=== PATIENT | female | born 1965 | race Caucasian/White ===

== ENCOUNTER 2019-09-03 09:12 | Day surgery (SDC) | payer OTHER ==
[~2019-09-03 09:12] MED LIST: PROPOFOL INJ 200 MG/20 ML VIAL IV ONE
[2019-09-03 10:49] VITALS: BP 140/88
--- NOTE | 2019-09-03 12:06 | Operative Report ---
Operative Report DATE OF SURGERY: 09/03/19 Operative Report: The risks benefits and alternatives of the procedure explained to the patient in detail and informed consent is obtained.A GIF Olympus video scope was inserted into the patient's mouth and hypopharynx, the esophagus is identified intubated and insufflated, the scope was then advanced through the esophagus stomach and duodenum ,retroflexion maneuver is done ,the esophagus stomach and first and second portions of the duodenum examined PREOPERATIVE DIAGNOSIS: Dysphagia, abdominal pain POSTOPERATIVE DIAGNOSIS: Duodenitis. Gastritis status post biopsy. Esophagitis. Hiatal hernia OPERATION: EGD with biopsy SURGEON: YENNI CONDON ANESTHESIA: LMAC TISSUE REMOVED OR ALTERED: As noted above. COMPLICATIONS: None. ESTIMATED BLOOD LOSS: None. INTRAOPERATIVE FINDINGS: As noted above. PROCEDURE: Patient tolerated the procedure well. No immediate postprocedure complications are noted. Patient is discharged in good condition. Discharge date 09/03/2019. Discharge diet: Regular. Discharge activity: Regular. 2 to 3-week follow-up to discuss findings. Patient is instructed to call the office or proceed to the emergency room should there be any further problems or questions. Wait on the pathology.
== END 2019-09-03 10:45 | disposition home or self-care (01) ==
LOC: END 09:12
PROVIDERS: ATTEND Internal Medicine Gastroenterology
DX: K29.80 Duodenitis without bleeding (principal); K29.50 Unspecified chronic gastritis without bleeding; K44.9 Diaphragmatic hernia without obstruction or gangrene; K20.9 Esophagitis, unspecified; B96.81 Helicobacter pylori [H. pylori] as the cause of diseases classified elsewhere; I10 Essential (primary) hypertension; E78.5 Hyperlipidemia, unspecified; F17.210 Nicotine dependence, cigarettes, uncomplicated; Z79.899 Other long term (current) drug therapy; Z79.82 Long term (current) use of aspirin; Z79.84 Long term (current) use of oral hypoglycemic drugs; Z88.8 Allergy status to other drugs, medicaments and biological substances
CPT/HCPCS: 43239; 82962; 88342 ×2; 88305 ×2; 00731; J2704; 731

== ENCOUNTER 2019-09-18 12:02 | Emergency (ER) | payer OTHER ==
[2019-09-18] MEDS ORDERED: NORMAL SALINE 1000 ML 1,000 ML IV ONE (12:18)
[2019-09-18] MEDS ORDERED: MORPHINE SULFATE 10 MG/ML INJ IV ONE (12:19)
--- NOTE | 2019-09-18 12:22 | ER Document Report ---
ED Medical Screen (RME) - General Chief Complaint: Abdominal Pain Stated Complaint: ABDOMINAL PAIN Time Seen by Provider: 09/18/19 12:09 Notes: Patient is a 53-year-old female who presents the emergency department with a chief complaint of abdominal pain. Patient states that she has had her abdominal pain for the past 6 months, on and off, but this time her pain started 3 days ago. States that she was seen by Dr. Watson, the money room teller, and was diagnosed with "diverticulitis and pancreatitis" as per patient. According to the operative note from the endoscopy, the patient has duodenitis and a hiatal hernia. Exam: Tender mid upper abdomen. I have greeted and performed a rapid initial assessment of this patient. A comprehensive ED assessment and evaluation of the patient, analysis of test results and completion of medical decision making process will be conducted by an additional ED providers. TRAVEL OUTSIDE OF THE [place] IN LAST 30 DAYS: No - Related Data Allergies/Adverse Reactions: metformin Allergy (Verified 09/18/19 12:08) Past Medical History - Social History Frequency of alcohol use: None Drug Abuse: None - Past Medical History Cardiac Medical History: Denies: Hx Coronary Artery Disease, Hx Heart Attack, Hx Hypertension Pulmonary Medical History: Denies: Hx Asthma, Hx Bronchitis, Hx COPD, Hx Pneumonia Neurological Medical History: Denies: Hx Cerebrovascular Accident, Hx Seizures Endocrine Medical History: Denies: Hx Diabetes Mellitus Type 1, Hx Diabetes Mellitus Type 2 Musculoskeltal Medical History: Denies Hx Arthritis Skin Medical History: Reports Hx MRSA - upper arm Past Surgical History: Reports: Hx Section - x 1 - Immunizations Hx Diphtheria, Pertussis, Tetanus Vaccination: No Physical Exam - Vital signs Vitals: Temp Pulse Resp BP Pulse Ox 97.9 F 80 16 130/84 H 100 09/18/19 12:06 09/18/19 12:06 09/18/19 12:06 09/18/19 12:06 09/18/19 12:06 Course - Vital Signs Vital signs: Temp Pulse Resp BP Pulse Ox 97.9 F 80 16 130/84 H 100 09/18/19 12:06 09/18/19 12:06 09/18/19 12:06 09/18/19 12:06 09/18/19 12:06
[2019-09-18] MEDS ORDERED: ONDANSETRON HCL INJ/PF 4 MG/2 ML SDV IV ONE (12:33)
[2019-09-18 12:42] LABS: ABSOLUTE EOSINOPHILS # (AUTO) 0.2 10^3/uL (0.0-0.6); ABSOLUTE LYMPHOCYTES (AUTO) 1.7 10^3/uL (0.5-4.7); ABSOLUTE MONOCYTES (AUTO) 0.5 10^3/uL (0.1-1.4); ABSOLUTE NEUT (AUTO) 4.6 10^3/uL (1.7-8.2); BASOPHILS % (AUTO) 0.4 % (0-2); EOSINOPHILS % (AUTO) 2.2 % (0-6); HEMATOCRIT 43.2 % (36.0-47.0); HEMOGLOBIN 15.6 g/dL (12.0-15.5); LYMPHOCYTES % (AUTO) 23.9 % (13-45); MEAN CORPUSCULAR HEMOGLOBIN 37.7 pg (27.0-33.4); MEAN CORPUSCULAR HGB CONC 36.2 g/dL (32.0-36.0); MEAN CORPUSCULAR VOLUME 104 fl (80-97); MONOCYTES % (AUTO) 7.1 % (3-13); PLATELET COUNT 252 10^3/uL (150-450); RED BLOOD COUNT 4.15 10^6/uL (3.72-5.28); RED CELL DISTRIBUTION WIDTH 14.7 % (11.5-14.0); SEGMENTED NEUTROPHILS % (AUTO) 66.4 % (42-78); TOTAL CELLS COUNTED % (AUTO) 100 %; WHITE BLOOD COUNT 6.9 10^3/uL (4.0-10.5)
[2019-09-18 12:59] LABS: ALBUMIN 4.1 g/dL (3.5-5.0); ALKALINE PHOSPHATASE 182 U/L (38-126); ANION GAP 13 (5-19); ASPARTATE AMINO TRANSFERASE 180 U/L (14-36); BILIRUBIN,DIRECT 0.7 mg/dL (0.0-0.4); BILIRUBIN,TOTAL 1.4 mg/dL (0.2-1.3); BLOOD UREA NITROGEN 6 mg/dL (7-20); CALCIUM 9.3 mg/dL (8.4-10.2); CARBON DIOXIDE 27 mmol/L (22-30); CHLORIDE 98 mmol/L (98-107); GLUCOSE 183 mg/dL (75-110); POTASSIUM 3.3 mmol/L (3.6-5.0); TOTAL PROTEIN 7.8 g/dL (6.3-8.2)
[2019-09-18] MEDS ORDERED: PANTOPRAZOLE SODIUM 40 MG VIAL IV ONE (13:04)
[2019-09-18 13:18] LABS: APPEARANCE,URINE CLEAR; BILIRUBIN,URINE NEGATIVE (NEGATIVE); COLOR,URINE YELLOW; GLUCOSE, URINE NEGATIVE (NEGATIVE); KETONES,URINE TRACE mg/dL (NEGATIVE); LEUKOCYTE ESTERASE,URINE NEGATIVE (NEGATIVE); NITRITE,URINE NEGATIVE (NEGATIVE); PROTEIN,URINE NEGATIVE (NEGATIVE); URINE SPECIFIC GRAVITY 1.003
--- NOTE | 2019-09-18 13:33 | ER Document Report ---
Entered by SANDRA PEREZ SCRIBE 09/18/19 1307 Acting as scribe for:LUC MENJIVAR DO ED GI/ - General Chief Complaint: Abdominal Pain Stated Complaint: ABDOMINAL PAIN Time Seen by Provider: 09/18/19 12:09 Primary Care Provider: ELAN CURRIE MD [Primary Care Provider] - Follow up as needed YENNI WATSON MD [ACTIVE STAFF] - Follow up as needed Information source: Patient Notes: This 53 year old female patient presents to the emergency department today with complaints of abdominal pain. Patient had an endoscopy on 09/02 and she states she was told she was "eaten up with bacteria from her esophagus to her lower intestine" but no medications were prescribed. Patient states that she did not have a colonoscopy done at that time but she is scheduled for one in the future. Patient also mentions a 20 pound weight loss in the last x3 months. Patient states she has had intermittent nausea, vomiting, and foul smelling urine that she states "smells like popcorn". TRAVEL OUTSIDE OF THE [place] IN LAST 30 DAYS: No - Related Data Allergies/Adverse Reactions: metformin Allergy (Verified 09/18/19 12:08) Past Medical History - General Information source: Patient - Social History Smoking Status: Current Every Day Smoker Cigarette use (# per day): Yes Frequency of alcohol use: Occasional Drug Abuse: None Lives with: Family Family History: Reviewed & Not Pertinent Patient has suicidal ideation: No Patient has homicidal ideation: No Endocrine Medical History: Reports: Hx Diabetes Mellitus Type 2 Skin Medical History: Reports Hx MRSA - upper arm Past Surgical History: Reports: Hx Section - x 1, Hx Cholecystectomy - Immunizations Hx Diphtheria, Pertussis, Tetanus Vaccination: No Review of Systems - Review of Systems Constitutional: No symptoms reported EENT: No symptoms reported Cardiovascular: No symptoms reported Respiratory: No symptoms reported Gastrointestinal: See HPI, Abdominal pain, Nausea, Vomiting. denies: Diarrhea Genitourinary: See HPI, Other - foul smelling urine Female Genitourinary: No symptoms reported Musculoskeletal: No symptoms reported Skin: No symptoms reported Hematologic/Lymphatic: No symptoms reported Neurological/Psychological: No symptoms reported -: Yes All other systems reviewed and negative Physical Exam - Vital signs Vitals: Temp Pulse Resp BP Pulse Ox 97.9 F 80 16 130/84 H 100 09/18/19 12:06 09/18/19 12:06 09/18/19 12:06 09/18/19 12:06 09/18/19 12:06 - Notes Notes: Physical Exam: General: Alert, appears older than stated age. HEENT: Normocephalic. Atraumatic. PERRL. Extraocular movements intact. Oropharynx clear. Neck: Supple. Non-tender. Respiratory: No respiratory distress. Clear and equal breath sounds bilaterally. Cardiovascular: Regular rate and rhythm. Abdominal: Epigastric and left upper quadrant tenderness with palpation. Normal Bowel Sounds. Back: No gross abnormalities. Extremities: Moves all four extremities. Upper extremities: Normal inspection. Normal ROM. Lower extremities: Normal inspection. No edema. Normal ROM. Neurological: Normal cognition. AAOx4. Normal speech. Psychological: Normal affect. Normal Mood. Skin: Warm. Dry. Normal color. Course - Re-evaluation Re-evalutation: 09/18/19 15:39 MDM 53 year old female arrives with abd pain. Epigastric pain and a h/o pancreatitis with what appears to be some mild pancreatitis here today. No nausea or vomiting and tells me she feels better after IVF and protonix here. She sees Dr. Mcclellan locally and is due to follow up. She also tells me she drinks etoh at times and will refrain for at least the next 2 weeks. She will return here for any worsening. - Vital Signs Vital signs: Temp Pulse Resp BP Pulse Ox 97.9 F 80 16 130/84 H 100 09/18/19 12:06 09/18/19 12:06 09/18/19 12:06 09/18/19 12:06 09/18/19 12:06 - Laboratory Result Diagrams: 09/18/19 12:30 09/18/19 12:30 Laboratory results interpreted by me: 09/18/19 09/18/19 09/18/19 12:30 12:30 12:30 Hgb 15.6 H MCV 104 H MCH 37.7 H MCHC 36.2 H RDW 14.7 H Potassium 3.3 L BUN 6 L Creatinine 0.37 L Glucose 183 H Total Bilirubin 1.4 H Direct Bilirubin 0.7 H AST 180 H ALT 95 H Alkaline Phosphatase 182 H Lipase 762.3 H Urine Ketones TRACE H Urine Urobilinogen 4.0 H - Diagnostic Test Radiology reviewed: Reports reviewed Discharge - Discharge Clinical Impression: Acute pancreatitis Qualifiers: Pancreatitis type: unspecified pancreatitis type Acute pancreatitis complication: no infection or necrosis Qualified Code(s): K85.90 - Acute pancreatitis without necrosis or infection, unspecified Condition: Good Disposition: HOME-ASSISTED LIVING Instructions: Abdominal Pain ([facility]), Antispasmodics ([facility]), Clear Liquid Diet ([facility]) Additional Instructions: See Dr. Watson or Dr. Currie in follow up. No alcohol for 2 weeks at least. 2 days of a clear liquid diet and take the medicine as directed. Your potassium was just a bit low and should be rechecked in about 1-2 weeks by your primary doctor. Please return here for persistent vomiting, dizziness, chest pain or other problems or concerns. Prescriptions: Ondansetron [Zofran Odt 4 mg Tablet] 1 - 2 tab PO Q4HP PRN #10 tab.rapdis PRN Reason: Dicyclomine HCl [Bentyl 10 mg Capsule] 1 cap PO TID #30 cap Sucralfate [Carafate Susp 1 Gm/10 Ml Udcup] 1 gm PO TID 10 Days #1 bottle Potassium Chloride 10 meq PO DAILY #5 tablet.er Referrals: ELAN UCRRIE MD [Primary Care Provider] - Follow up as needed YENNI WATSON MD [ACTIVE STAFF] - Follow up as needed I personally performed the services described in the documentation, reviewed and edited the documentation which was dictated to the scribe in my presence, and it accurately records my words and actions.
--- NOTE | 2019-09-18 14:29 | RADIOLOGY REPORT (SQ) ---
EXAM DESCRIPTION: CT ABD/PELVIS WITH IV ONLY COMPLETED DATE/TIME: 09/18/2019 2:12 pm REASON FOR STUDY: pancreatitis COMPARISON: None. TECHNIQUE: CT scan of the abdomen and pelvis performed using helical scanning technique with dynamic intravenous contrast injection. No oral contrast. Images reviewed with lung, soft tissue, and bone windows. Reconstructed coronal and sagittal MPR images reviewed. Delayed images for evaluation of the urinary system also acquired. All images stored on PACS. All CT scanners at this facility use dose modulation, iterative reconstruction, and/or weight based d osing when appropriate to reduce radiation dose to as low as reasonably achievable (ALARA). [facility]: Dose Right [facility]: CareDose [facility]: Dose Right [facility]: Teradose 4D [facility]: [employer] CONTRAST TYPE AND DOSE: contrast/concentration: Isovue 350.00 mg/ml; Total Contrast Delivered: 69.0 ml; Total Saline Delivered: 48.6 ml RENAL FUNCTION: BUN 6 creatinine 0.4 RADIATION DOSE: CT Rad equipment meets quality standard of care and radiation dose reduction techniq ues were employed. CTDIvol: 6.1 - 8.3 mGy. DLP: 768 mGy-cm.. LIMITATIONS: None. FINDINGS: LOWER CHEST: No significant findings. No nodules or infiltrates. LIVER: Diffusely hypoattenuating. No mass. SPLEEN: Normal size. No focal lesions. PANCREAS: There appears to be mild pancreatic/ peripancreatic edema. No pancreatic mass is appreciat ed. GALLBLADDER: Surgically absent. ADRENAL GLANDS: No significant masses or asymmetry. RIGHT KIDNEY AND URETER: No solid masses. No significant calcifications. No hydronephrosis or hyd roureter. LEFT KIDNEY AND URETER: No solid masses. No significant calcifications. No hydronephrosis or hydr oureter. AORTA AND VESSELS: No aneurysm. No dissection. Renal arteries, SMA, celiac without stenosis. RETROPERITONEUM: No retroperitoneal adenopathy, hemorrhage or masses. BOWEL AND PERITONEAL CAVITY: Sigmoid diverticulosis with no associated acute inflammation. APPENDIX: Not identified. PELVIS: There is a 42.5 mm cyst in the pelvis. This does not appear to be associated with the left o vary which can be seen on image 72. ABDOMINAL WALL: No masses. No hernias. BONES: No significant or acute findings. OTHER: No other significant finding. IMPRESSION: 1. Significant hepatic steatosis. 2. There appears to be mild pancreatitis. Correlate clinically. 3. Diverticulosis coli. 4. There is a 42.5 mm cyst in the pelvis that appears to be separate from the ovary. It is possible this represents a small bowel diverticulum. TECHNICAL DOCUMENTATION: JOB ID: [id number] Quality ID # [id number]: Final reports with documentation of one or more dose reduction techniques (e.g., Au tomated exposure control, adjustment of the mA and/or kV according to patient size, use of iterative reconstruction technique) 2010 [employer]- All Rights Reserved Reading location - IP/workstation name: [email or web address]
[2019-09-18 16:10] VITALS: BP 131/77
== END 2019-09-18 16:10 | disposition home health service (06) ==
LOC: ER 12:02
DX: K85.90 Acute pancreatitis without necrosis or infection, unspecified (principal); R10.9 Unspecified abdominal pain; R11.2 Nausea with vomiting, unspecified; R39.198 Other difficulties with micturition; F17.210 Nicotine dependence, cigarettes, uncomplicated; E11.9 Type 2 diabetes mellitus without complications
CPT/HCPCS: 99284; 96361; 96374; 96375; 36415; 83690; 85025; 81025; 80053; 81001; 74177; J2270; C9113; J2405; J7030

== ENCOUNTER 2019-09-30 18:24 | Emergency (ER) | payer OTHER ==
[2019-09-30] MEDS ORDERED: ONDANSETRON HCL INJ/PF 4 MG/2 ML SDV IV ONE (18:39)
[2019-09-30] MEDS ORDERED: NORMAL SALINE 1000 ML 1,000 ML IV ONE (18:39)
--- NOTE | 2019-09-30 18:40 | ER Document Report ---
ED Medical Screen (RME) - General Chief Complaint: General Weakness Stated Complaint: CONFUSION, WEAKNESS Time Seen by Provider: 09/30/19 18:34 Primary Care Provider: ELAN CURRIE MD [Primary Care Provider] - Follow up as needed Notes: Patient is a 53-year-old female who presents to the emergency department with a chief complaint of abdominal pain. Patient states that she feels weak and confused, but is still oriented. Patient was diagnosed with pancreatitis on September 17, but continues to have symptoms. Exam: Tender mid to left upper abdomen. I have greeted and performed a rapid initial assessment of this patient. A comprehensive ED assessment and evaluation of the patient, analysis of test results and completion of medical decision making process will be conducted by an additional ED providers. TRAVEL OUTSIDE OF THE [place] IN LAST 30 DAYS: No - Related Data Allergies/Adverse Reactions: metformin Allergy (Verified 09/18/19 12:08) Home Medications: zofran, carafate, potassium, bentyl Past Medical History - Past Medical History Cardiac Medical History: Reports: Hx Hypertension Denies: Hx Coronary Artery Disease, Hx Heart Attack Pulmonary Medical History: Denies: Hx Asthma, Hx Bronchitis, Hx COPD, Hx Pneumonia Neurological Medical History: Denies: Hx Cerebrovascular Accident, Hx Seizures Endocrine Medical History: Reports: Hx Diabetes Mellitus Type 2. Denies: Hx Diabetes Mellitus Type 1 Musculoskeltal Medical History: Denies Hx Arthritis Skin Medical History: Reports Hx MRSA - upper arm Past Surgical History: Reports: Hx Section - x 1, Hx Cholecystectomy - Immunizations Hx Diphtheria, Pertussis, Tetanus Vaccination: No Physical Exam - Vital signs Vitals: Temp Pulse Resp BP Pulse Ox 98.1 F 105 H 15 106/72 99 09/30/19 18:32 09/30/19 18:32 09/30/19 18:32 09/30/19 18:32 09/30/19 18:32 Course - Vital Signs Vital signs: Temp Pulse Resp BP Pulse Ox 98.1 F 105 H 15 106/72 99 09/30/19 18:32 09/30/19 18:32 09/30/19 18:32 09/30/19 18:32 09/30/19 18:32 Doctor's Discharge - Discharge Referrals: ELAN CURRIE MD [Primary Care Provider] - Follow up as needed
[2019-09-30 19:18] LABS: ABSOLUTE EOSINOPHILS # (AUTO) 0.1 10^3/uL (0.0-0.6); ABSOLUTE LYMPHOCYTES (AUTO) 0.9 10^3/uL (0.5-4.7); ABSOLUTE MONOCYTES (AUTO) 0.5 10^3/uL (0.1-1.4); ABSOLUTE NEUT (AUTO) 4.6 10^3/uL (1.7-8.2); BASOPHILS % (AUTO) 0.4 % (0-2); EOSINOPHILS % (AUTO) 1.3 % (0-6); HEMOGLOBIN 13.1 g/dL (12.0-15.5); LYMPHOCYTES % (AUTO) 15.3 % (13-45); MEAN CORPUSCULAR HEMOGLOBIN 37.3 pg (27.0-33.4); MEAN CORPUSCULAR HGB CONC 36.4 g/dL (32.0-36.0); MEAN CORPUSCULAR VOLUME 102 fl (80-97); MONOCYTES % (AUTO) 8.6 % (3-13); PLATELET COUNT 109 10^3/uL (150-450); RED BLOOD COUNT 3.52 10^6/uL (3.72-5.28); RED CELL DISTRIBUTION WIDTH 14.6 % (11.5-14.0); SEGMENTED NEUTROPHILS % (AUTO) 74.4 % (42-78); TOTAL CELLS COUNTED % (AUTO) 100 %; WHITE BLOOD COUNT 6.1 10^3/uL (4.0-10.5)
[2019-09-30 19:34] LABS: ALBUMIN 3.3 g/dL (3.5-5.0); ALKALINE PHOSPHATASE 349 U/L (38-126); ASPARTATE AMINO TRANSFERASE 134 U/L (14-36); BILIRUBIN,DIRECT 8.1 mg/dL (0.0-0.4); BLOOD UREA NITROGEN 26 mg/dL (7-20); CALCIUM 9.1 mg/dL (8.4-10.2); GLUCOSE 309 mg/dL (75-110); TOTAL PROTEIN 6.4 g/dL (6.3-8.2)
[2019-09-30 19:38] LABS: CARBON DIOXIDE 28 mmol/L (22-30); CHLORIDE 80 mmol/L (98-107)
[2019-09-30 19:42] LABS: ANION GAP 19 (5-19)
[2019-09-30 19:47] LABS: POTASSIUM 2.7 mmol/L (3.6-5.0)
[2019-09-30] MEDS ORDERED: RINGERS SOLUTION,LACTATED 1,000 ML IV ONE (19:57)
[2019-09-30] MEDS ORDERED: METOCLOPRAMIDE HCL INJ/PF 10 MG/2 ML SDV IV ONE (19:58)
--- NOTE | 2019-09-30 20:02 | ER Document Report ---
ED General - General Chief Complaint: General Weakness Stated Complaint: CONFUSION, WEAKNESS Time Seen by Provider: 09/30/19 18:34 Primary Care Provider: ELAN LARSON MD [Primary Care Provider] - Follow up as needed Notes: 53-year-old female presents emergency department complaining that she was diagnosed with pancreatitis by Dr. Condon on a scope last Tuesday and that she was diagnosed with diverticulitis by Dr. Larson a month ago and was placed on antibiotics. Patient is concerned because she has had decreased oral intake for the past 2 months. States that this morning she was only able to eat 1 piece of peanut butter toast and 7 grapes and then she threw up again. Denies any hematemesis. Denies any diarrhea. Denies any increase in her pain. Patient states she just feels incredibly weak and thinks she has lost a lot of weight. States she thinks she needs to be admitted for several days until she can get her energy back. TRAVEL OUTSIDE OF THE [place] IN LAST 30 DAYS: No - Related Data Allergies/Adverse Reactions: metformin Allergy (Verified 09/18/19 12:08) Home Medications: zofran, carafate, potassium, bentyl Past Medical History - General Information source: Patient, [facility] Records - Social History Smoking Status: Current Some Day Smoker Frequency of alcohol use: None Drug Abuse: None Family History: Reviewed & Not Pertinent Patient has suicidal ideation: No Patient has homicidal ideation: No - Past Medical History Cardiac Medical History: Reports: Hx Hypertension Denies: Hx Coronary Artery Disease, Hx Heart Attack Pulmonary Medical History: Denies: Hx Asthma, Hx Bronchitis, Hx COPD, Hx Pneumonia Neurological Medical History: Denies: Hx Cerebrovascular Accident, Hx Seizures Endocrine Medical History: Reports: Hx Diabetes Mellitus Type 2. Denies: Hx Diabetes Mellitus Type 1 Musculoskeletal Medical History: Denies Hx Arthritis Skin Medical History: Reports Hx MRSA - upper arm Past Surgical History: Reports: Hx Section - x 1, Hx Cholecystectomy - Immunizations Hx Diphtheria, Pertussis, Tetanus Vaccination: No Review of Systems - Review of Systems Constitutional: See HPI, Malaise, Weakness. denies: Chills, Fever EENT: No symptoms reported Gastrointestinal: See HPI, Abdominal pain, Nausea, Vomiting. denies: Diarrhea -: Yes All other systems reviewed and negative Physical Exam - Vital signs Vitals: Temp Pulse Resp BP Pulse Ox 98.1 F 105 H 15 106/72 99 09/30/19 18:32 09/30/19 18:32 09/30/19 18:32 09/30/19 18:32 09/30/19 18:32 Interpretation: Tachycardic - Notes Notes: GENERAL: Alert, interacts well. HEAD: Normocephalic, atraumatic EYES: Pupils equal, round and reactive to light, extraocular movements intact. Scleral icterus ENT: Oral mucosa moist, tongue midline. NECK: Full range of motion, supple, trachea midline. LUNGS: Clear to auscultation bilaterally, no wheezes, rales or rhonchi, no respiratory distress. HEART: Mildly tachycardic rate, regular rhythm, no murmurs, gallops, rubs. ABDOMEN: Soft, nontender, nondistended, bowel sounds present in all 4 quadrants. EXTREMITIES: Moves all 4 extremities spontaneously, no edema, radial and dorsalis pedis pulses 2/4 bilaterally. No cyanosis. NEUROLOGICAL: Alert and oriented x3, normal speech. PSYCH: Irritable. SKIN: Warm, Dry, normal turgor, no rashes or lesions noted. Course - Re-evaluation Re-evalutation: 09/30/19 23:20 CBC shows thrombocytopenia at 109, CMP shows hyponatremia with a sodium of 127.2, this is dropped approximately 10 points in the past week and a half, potassium is quite low at 2.7, again significantly lower than the 24th, magnesium is actually normal, total and direct bilirubin have both markedly increased from the 24th total bilirubin is now 10 and direct bilirubin is 8.1, AST, ALT and alk phos all remain elevated, AST has improved and ALT and alkaline phosphatase have worsened. Lipase is actually improved at 570.8. Urinalysis d oes show ketones and small blood. No true signs of infection. CT scan is pending. 09/30/19 23:23 Patient has lost 1.5 kg since her last visit on 09/18/2019. 09/30/19 23:45 Abdomen/Pelvis CT 09/30/19 21:20 IMPRESSION: 1. Diffuse fatty infiltration of the liver. Hepatomegaly. 2. Possible thickening of the gastric outlet suggesting gastritis. The appearance is stable. 3. Subtle inflammation involving the pancreas consistent with resolving pancreatitis. There may be a 9 mm cyst now seen adjacent to the tail of the pancreas. This is new. 4. Peritoneal cyst in the mid abdomen slightly less pronounced on today's exam. 09/30/19 23:46 Patient is now asking for ice chips, feels like she can eat or drink something. Discussed with patient further her concerns and she states that she would like to be admitted overnight otherwise her insurance company will not cover her visit to the emergency department today. Patient and I had an extensive discussion about the reasons why somebody would need to be admitted to the hospital and that currently when she is able to eat and drink despite having nausea and vomiting when she does eat and drink that being admitted to the hospital could possibly have more risk for her than benefits particularly during a time of novel coronavirus outbreak. Patient has been instructed to follow-up with Dr. Condon as an outpatient. Patient is instructed to ask Dr. Condon to follow-up regarding her elevated bilirubin, her continuing pain and further adjustment of her antacids. 09/30/19 23:51 Pancreatic cyst unlikely to represent abscess as she has no fever and no leukocytosis. - Vital Signs Vital signs: Temp Pulse Resp BP Pulse Ox 98.1 F 105 H 22 H 119/76 98 09/30/19 18:32 09/30/19 18:32 09/30/19 20:31 09/30/19 20:31 09/30/19 20:31 - Laboratory Result Diagrams: 09/30/19 19:07 09/30/19 19:07 Laboratory results interpreted by me: 09/30/19 09/30/19 09/30/19 19:07 19:07 21:45 RBC 3.52 L MCV 102 H MCH 37.3 H MCHC 36.4 H RDW 14.6 H Plt Count 109 L Sodium 127.2 L Potassium 2.7 L* Chloride 80 L BUN 26 H Creatinine 0.50 L Glucose 309 H Total Bilirubin 10.0 H Direct Bilirubin 8.1 H AST 134 H ALT 197 H Alkaline Phosphatase 349 H Albumin 3.3 L Lipase 570.8 H Urine Glucose (UA) >=500 H Urine Ketones 80 H Urine Blood SMALL H Urine Urobilinogen 2.0 H - EKG Interpretation by Me Additional EKG results interpreted by me: 09/30/19 23:20 EKG shows sinus rhythm at a rate of 90, borderline prolonged QT interval with a QT corrected of 500, normal axis, no ST segment elevations or depressions, no T wave inversions, no QRS widening, rapid R wave progression per my interpretation. Discharge - Discharge Clinical Impression: Esophagitis, Gastritis and duodenitis, Pancreatic cyst, Hypokalemia due to excessive gastrointestinal loss of potassium Nausea and vomiting Qualifiers: Vomiting type: unspecified Vomiting Intractability: non-intractable Qualified Code(s): R11.2 - Nausea with vomiting, unspecified Condition: Stable Disposition: HOME, SELF-CARE Additional Instructions: Your CAT scan showed signs of improvement in your pancreatitis but did show continuing inflammation in your stomach. Please continue to eat low-fat foods. You told me today you had peanut butter toast. Peanut butter is actually very high fat, I would recommend you avoid nuts and nut butters as they will make your stomach feel worse. You should be trying to eat clear liquids, simple carbohydrates and things with very little fat. This also means avoiding dairy. Please continue to take the medications that apparently prescribed to you by Dr. Davidson and Dr. Larson they will treat your esophagitis, gastritis and duodenitis (the inflammation from your throat to your intestines). I want you to follow-up with Dr. oCndon as an outpatient. Please discuss with him that you had been diagnosed with pancreatitis and it is improving but you are still having vomiting. Please also discussed with him that your bilirubin has elevated from your last visit. Please return for fever or pain that is uncontrolled by the antinausea medications I have prescribed or for any new or concerning symptoms. I have prescribed Zofran and Phenergan for your nausea and vomiting. The Zofran will dissolve under your tongue and stop the vomiting, you may use the Phenergan to decrease your nausea as well if the Zofran does not completely relieve your nausea. You may also use Imodium as directed [id number] to help with your diarrhea. Your potassium was low today, 2.7. We have been giving you potassium to help bring this back up. You will need to have this rechecked in approximately 1 week to make sure it is continuing to come back up. Prescriptions: Potassium Chloride [Klor-Con 10 Meq Tablet ER] 10 meq PO Q12 #20 tablet.sa Promethazine HCl [Phenergan 25 mg Tablet] 1 - 2 tab PO Q6H PRN #20 tablet PRN Reason: Ondansetron [Zofran Odt 4 mg Tablet] 1 - 2 tab PO Q4H PRN #20 tab.rapdis PRN Reason: For Nausea/Vomiting Referrals: ELAN LARSON MD [Primary Care Provider] - Follow up as needed YENNI CONDON MD [ACTIVE STAFF] - Follow up as needed
[2019-09-30] MEDS: POTASSI CL 20 MEQ/50 ML RIDER 20 MEQ/50 ML RTUPB IV SCH ×2 (20:20→21:49)
[2019-09-30 22:16] LABS: APPEARANCE,URINE CLEAR; BILIRUBIN,URINE NEGATIVE (NEGATIVE); COLOR,URINE AMBER; GLUCOSE, URINE >=500 mg/dL (NEGATIVE); KETONES,URINE 80 mg/dL (NEGATIVE); LEUKOCYTE ESTERASE,URINE NEGATIVE (NEGATIVE); NITRITE,URINE NEGATIVE (NEGATIVE); PROTEIN,URINE NEGATIVE (NEGATIVE); URINE SPECIFIC GRAVITY 1.014
--- NOTE | 2019-09-30 23:36 | RADIOLOGY REPORT (SQ) ---
EXAM DESCRIPTION: Contrast-enhanced CT scan of the abdomen and pelvis CLINICAL HISTORY: 53 years Female; pancreatitis, elevated LFTs TECHNIQUE: CT of the abdomen and pelvis with intravenous contrast. Delayed imaging of the abdomen and pelvis was also performed. All CT scans at this facility use dose modulation, iterative reconstruction, and/or weight based dosing when appropriate to reduce radiation dose to as low as reasonably achievable. This exam was performed according to our department optimization program which includes automated exposure control, adjustment of the mA and/or kv according to patient size and/or use of iterative reconstruction technique. COMPARISON: CT scan of the abdomen and pelvis September 18, 2019 FINDINGS: Lower chest: Minimal dependent density is noted in the lung bases. Heart size is normal. No pleural effusion. No pneumothorax. Abdomen: Liver and biliary tree: Diffuse fatty infiltration of the liver is again identified. The gallbladder surgically absent. The liver is enlarged and measures 22.3 cm in length. No definitive biliary dilatation. Portal vein and hepatic veins are patent. Pancreas: The previously noted changes of pancreatitis have improved and there is less noticeable inflammation adjacent to the head and body of the pancreas. A 9 mm area of decreased density is present along the deep surface of the tail of the pancreas which may represent a very small focal fluid collection. This is new when compared the previous exam. No evidence of devitalized pancreas. There is a duodenal diverticulum which projects into the head of the pancreas. This is unchanged. Spleen:Within normal limits Kidneys: Kidneys are normal in size, shape and position. No stones. No mass or hydronephrosis. Symmetric renal enhancement. On delayed images there is normal pyelograms bilaterally. Adrenal glands:Within normal limits Vascular structures: Vascular calcifications are present in the aorta and iliac vessels. The mesenteric vessels are patent. Retroperitoneum: Family history, adhere Abdominal wall: normal GI: There may be thickening of the gastric outlet. No bowel obstruction. Scattered diverticula are seen in the colon. No evidence of acute diverticulitis. Appendix: The appendix appears normal. General: No free air. No free fluid Pelvis: Lymph nodes: No mass or lymphadenopathy Bladder: Unremarkable. Pelvis: The appearance of the uterus and ovaries are unchanged. There is been previous tubal ligation. A cyst is present in the mid pelvis in between bowel loops and is not associated with the ovaries. It measures 3.7 cm and is smaller on today's exam. Bones: No acute bone findings. IMPRESSION: 1. Diffuse fatty infiltration of the liver. Hepatomegaly. 2. Possible thickening of the gastric outlet suggesting gastritis. The appearance is stable. 3. Subtle inflammation involving the pancreas consistent with resolving pancreatitis. There may be a 9 mm cyst now seen adjacent to the tail of the pancreas. This is new. 4. Peritoneal cyst in the mid abdomen slightly less pronounced on today's exam.
--- NOTE | 2019-10-01 00:13 | EKG REPORT ---
SEVERITY:- BORDERLINE ECG - SINUS RHYTHM BORDERLINE PROLONGED QT INTERVAL : Confirmed by: Jarad Moncada 01-Oct-2019 00:12:55
[2019-10-01] MEDS: POTASSI CL 20 MEQ/50 ML RIDER 20 MEQ/50 ML RTUPB IV SCH ×2 (01:15→03:44)
[2019-10-01 05:57] VITALS: BP 127/89
== END 2019-10-01 06:20 | disposition home or self-care (01) ==
LOC: ER 18:24
DX: K20.9 Esophagitis, unspecified (principal); K29.70 Gastritis, unspecified, without bleeding; K86.2 Cyst of pancreas; E87.6 Hypokalemia; R11.2 Nausea with vomiting, unspecified; R53.1 Weakness; R10.9 Unspecified abdominal pain; I10 Essential (primary) hypertension; Z90.49 Acquired absence of other specified parts of digestive tract; Z86.14 Personal history of Methicillin resistant Staphylococcus aureus infection
CPT/HCPCS: 93005; 99285; 96361; 96375; 96365; 96366; 36415; 83690; 83735; 85025; 80053; 81001; 74177; 93010; J2765; J2405; J3480 ×2; J7030; J7120

== ENCOUNTER 2019-10-22 15:14 | Emergency (ER) | payer OTHER ==
--- NOTE | 2019-10-22 16:47 | RADIOLOGY REPORT (SQ) ---
EXAM DESCRIPTION: CHEST SINGLE VIEW IMAGES COMPLETED DATE/TIME: 10/22/2019 4:29 pm REASON FOR STUDY: cough COMPARISON: None. EXAM PARAMETERS: NUMBER OF VIEWS: One view. TECHNIQUE: An AP view of the chest was obtained. RADIATION DOSE: NA LIMITATIONS: None. FINDINGS: LUNGS AND PLEURA: No consolidation, pleural effusion or pneumothorax. MEDIASTINUM AND HILAR STRUCTURES: No mediastinal or hilar contour abnormality. HEART AND VASCULAR STRUCTURES: The cardiac silhouette and pulmonary vasculature are within normal bonilla its. BONES: No acute findings. HARDWARE: None in the chest. OTHER: No other finding. IMPRESSION: No acute cardiopulmonary process. TECHNICAL DOCUMENTATION: JOB ID: [id number] 2010 [employer]- All Rights Reserved Reading location - IP/workstation name: [email or web address]
--- NOTE | 2019-10-22 18:03 | ER Document Report ---
ED General - General Chief Complaint: Medical Clearance Stated Complaint: REFFERED Time Seen by Provider: 10/22/19 15:30 Primary Care Provider: ELAN CURRIE MD [Primary Care Provider] - Follow up as needed Mode of Arrival: Ambulatory Information source: Patient TRAVEL OUTSIDE OF THE [place] IN LAST 30 DAYS: No - HPI Notes: Patient was sent from her primary care doctor's office today for a COVID virus test as well as a chest x-ray. She states blood work was done at the office. She states she was diagnosed with a fever and a urinary tract infection. She states that she has had no known exposure to COVID virus. She also states that she has had no respiratory symptoms. She states her doctor told her he just wanted to be careful. She has had fever chills and malaise for several days. They have been constant. They are worse with exertion and better with rest. They do radiate throughout her body. - Related Data Allergies/Adverse Reactions: metformin Allergy (Verified 09/18/19 12:08) Home Medications: "BP infection and insulin" Past Medical History - General Information source: Patient - Social History Smoking Status: Current Every Day Smoker Frequency of alcohol use: None Drug Abuse: None Family History: Reviewed & Not Pertinent Patient has suicidal ideation: No Patient has homicidal ideation: No - Past Medical History Cardiac Medical History: Reports: Hx Hypertension Denies: Hx Coronary Artery Disease, Hx Heart Attack Pulmonary Medical History: Denies: Hx Asthma, Hx Bronchitis, Hx COPD, Hx Pneumonia Neurological Medical History: Denies: Hx Cerebrovascular Accident, Hx Seizures Endocrine Medical History: Reports: Hx Diabetes Mellitus Type 2. Denies: Hx Diabetes Mellitus Type 1 Musculoskeletal Medical History: Denies Hx Arthritis Skin Medical History: Reports Hx MRSA - upper arm Past Surgical History: Reports: Hx Section - x 1, Hx Cholecystectomy - Immunizations Hx Diphtheria, Pertussis, Tetanus Vaccination: No Review of Systems - Review of Systems Constitutional: Chills, Fever Cardiovascular: denies: Chest pain, Palpitations Respiratory: denies: Cough, Short of breath -: Yes All other systems reviewed and negative Physical Exam - Vital signs Vitals: Temp Pulse Resp BP Pulse Ox 101 F H 133 H 16 141/82 H 97 10/22/19 15:16 10/22/19 15:16 10/22/19 15:16 10/22/19 15:16 10/22/19 15:16 Interpretation: Tachycardic - pt states "my HR is always fast" - General General appearance: Appears well, Alert - HEENT Head: Normocephalic, Atraumatic Eyes: Normal Pupils: PERRL - Respiratory Respiratory status: No respiratory distress Chest status: Nontender Breath sounds: Normal Chest palpation: Normal - Cardiovascular Rhythm: Regular Heart sounds: Normal auscultation Murmur: No - Abdominal Inspection: Normal Distension: No distension Bowel sounds: Normal Tenderness: Nontender Organomegaly: No organomegaly - Back Back: Normal, Nontender - Extremities General upper extremity: Normal inspection, Nontender, Normal color, Normal ROM, Normal temperature General lower extremity: Normal inspection, Nontender, Normal color, Normal ROM, Normal temperature, Normal weight bearing. No: Klever's sign - Neurological Neuro grossly intact: Yes Cognition: Normal Orientation: AAOx4 Pep Coma Scale Eye Opening: Spontaneous [place] Coma Scale Verbal: Oriented [place] Coma Scale Motor: Obeys Commands Pep Coma Scale Total: 15 Speech: Normal Motor strength normal: LUE, RUE, LLE, RLE Sensory: Normal - Psychological Associated symptoms: Normal affect, Normal mood - Skin Skin Temperature: Warm Skin Moisture: Dry Skin Color: Normal Course - Re-evaluation Re-evalutation: 10/22/19 18:01 Patient sent by primary care provider for COVID test. Chest x-ray is unrema rkable. She has no known COVID risk factors. She does appear stable. It is concerning on exam the patient is tachycardic. The tachycardia slightly improved after treating the fever. She states she is usually tachycardic. I reviewed her previous heart rates here and they have been in the 80s to 90s. However since her doctor gianna blood work today I do not think would benefit her to draw more blood work here. She does not appear toxic she is sitting up calm with unlabored respirations. She is talking in normal sentences. She has no significant risk factors for pulmonary embolism. At this time it seems most prudent to have her discharged home and follow-up with her primary care doctor. - Vital Signs Vital signs: Temp Pulse Resp BP Pulse Ox 100.5 F H 126 H 18 114/70 97 10/22/19 17:10 10/22/19 17:10 10/22/19 17:10 10/22/19 17:10 10/22/19 17:10 - Diagnostic Test Radiology reviewed: Image reviewed, Reports reviewed Discharge - Discharge Clinical Impression: UTI (urinary tract infection) Qualifiers: Urinary tract infection type: site unspecified Hematuria presence: without hematuria Qualified Code(s): N39.0 - Urinary tract infection, site not specified Fever Qualifiers: Fever type: due to other condition Qualified Code(s): R50.81 - Fever presenting with conditions classified elsewhere Condition: Stable Disposition: HOME, SELF-CARE Additional Instructions: Please follow-up with your primary care physician as instructed Forms: Return to Work Referrals: ELAN CURRIE MD [Primary Care Provider] - Follow up in 3-5 days
[2019-10-22 18:20] VITALS: BP 110/65
== END 2019-10-22 18:20 | disposition home or self-care (01) ==
LOC: ER 15:14
DX: N39.0 Urinary tract infection, site not specified (principal); R50.81 Fever presenting with conditions classified elsewhere; Z11.59 Encounter for screening for other viral diseases; R00.0 Tachycardia, unspecified; I10 Essential (primary) hypertension; E11.9 Type 2 diabetes mellitus without complications; Z79.899 Other long term (current) drug therapy; Z79.4 Long term (current) use of insulin; Z20.828 Contact with and (suspected) exposure to other viral communicable diseases
CPT/HCPCS: 71045; 87635; 99283

== ENCOUNTER 2019-10-23 15:36 | Inpatient (IN) | payer SELFPAY ==
--- NOTE | 2019-10-23 15:52 | ER Document Report ---
ED Medical Screen (RME) - General Chief Complaint: Abnormal Lab Results Stated Complaint: ABNORMAL LABS Time Seen by Provider: 10/23/19 15:40 Primary Care Provider: ELAN CURRIE MD [Primary Care Provider] - Follow up as needed Mode of Arrival: Ambulatory Information source: Patient Notes: 53-year-old diabetic patient presents today after she received a call from her primary care provider Dr. Currie telling her to come to the emergency department because she was severely dehydrated. Patient reports glucose today was 197. She reports thats better than it was. She reports she feels better than she did yesterday. Denies fever vomiting diarrhea. Reports she has been taking her water pills so voiding a lot. I have greeted and performed a rapid initial assessment of this patient. A comprehensive ED assessment and evaluation of the patient, analysis of test results and completion of the medical decision making process will be conducted by additional ED providers. TRAVEL OUTSIDE OF THE [place] IN LAST 30 DAYS: No - Related Data Allergies/Adverse Reactions: metformin Allergy (Verified 09/18/19 12:08) Past Medical History - Social History Frequency of alcohol use: None Drug Abuse: None - Past Medical History Cardiac Medical History: Reports: Hx Hypertension Denies: Hx Coronary Artery Disease, Hx Heart Attack Pulmonary Medical History: Denies: Hx Asthma, Hx Bronchitis, Hx COPD, Hx Pneumonia Neurological Medical History: Denies: Hx Cerebrovascular Accident, Hx Seizures Endocrine Medical History: Reports: Hx Diabetes Mellitus Type 2. Denies: Hx Diabetes Mellitus Type 1 Musculoskeltal Medical History: Denies Hx Arthritis Skin Medical History: Reports Hx MRSA - upper arm Past Surgical History: Reports: Hx Section - x 1, Hx Cholecystectomy - Immunizations Hx Diphtheria, Pertussis, Tetanus Vaccination: No Physical Exam - Vital signs Vitals: Temp 99.9 F 10/23/19 15:45 Course - Vital Signs Vital signs: Temp Pulse Resp BP Pulse Ox 99.9 F 10/23/19 15:45 Doctor's Discharge - Discharge Referrals: ELAN CURRIE MD [Primary Care Provider] - Follow up as needed
[2019-10-23] MEDS ORDERED: NORMAL SALINE 1000 ML 1,000 ML IV ONE ×2 (16:01)
[2019-10-23 16:39] LABS: ABSOLUTE BASOPHILS # (AUTO) 0.1 10^3/uL (0.0-0.2); ABSOLUTE EOSINOPHILS # (AUTO) 0.1 10^3/uL (0.0-0.6); ABSOLUTE LYMPHOCYTES (AUTO) 0.8 10^3/uL (0.5-4.7); ABSOLUTE MONOCYTES (AUTO) 0.5 10^3/uL (0.1-1.4); ABSOLUTE NEUT (AUTO) 11.8 10^3/uL (1.7-8.2); BASOPHILS % (AUTO) 0.9 % (0-2); EOSINOPHILS % (AUTO) 0.5 % (0-6); HEMATOCRIT 30.8 % (36.0-47.0); HEMOGLOBIN 10.5 g/dL (12.0-15.5); LYMPHOCYTES % (AUTO) 5.8 % (13-45); MEAN CORPUSCULAR HGB CONC 33.9 g/dL (32.0-36.0); MEAN CORPUSCULAR VOLUME 103 fl (80-97); PLATELET COUNT 234 10^3/uL (150-450); RED BLOOD COUNT 2.99 10^6/uL (3.72-5.28); RED CELL DISTRIBUTION WIDTH 15.6 % (11.5-14.0); SEGMENTED NEUTROPHILS % (AUTO) 88.8 % (42-78); TOTAL CELLS COUNTED % (AUTO) 100 %; WHITE BLOOD COUNT 13.3 10^3/uL (4.0-10.5)
[2019-10-23 16:40] LABS: APPEARANCE,URINE SLIGHTLY-CLOUDY; BILIRUBIN,URINE NEGATIVE (NEGATIVE); COLOR,URINE AMBER; GLUCOSE, URINE 50 mg/dL (NEGATIVE); KETONES,URINE 20 mg/dL (NEGATIVE); LEUKOCYTE ESTERASE,URINE TRACE (NEGATIVE); NITRITE,URINE NEGATIVE (NEGATIVE); PROTEIN,URINE 30 mg/dL (NEGATIVE); URINE SPECIFIC GRAVITY 1.014
[2019-10-23 16:55] LABS: ALBUMIN 3.5 g/dL (3.5-5.0); ALKALINE PHOSPHATASE 182 U/L (38-126); ANION GAP 10 (5-19); ASPARTATE AMINO TRANSFERASE 29 U/L (14-36); BILIRUBIN,DIRECT 1.3 mg/dL (0.0-0.4); BILIRUBIN,TOTAL 2.1 mg/dL (0.2-1.3); BLOOD UREA NITROGEN 6 mg/dL (7-20); CALCIUM 8.8 mg/dL (8.4-10.2); CARBON DIOXIDE 27 mmol/L (22-30); CHLORIDE 95 mmol/L (98-107); GLUCOSE 289 mg/dL (75-110); POTASSIUM 3.6 mmol/L (3.6-5.0); TOTAL PROTEIN 7.2 g/dL (6.3-8.2)
--- NOTE | 2019-10-23 16:59 | RADIOLOGY REPORT (SQ) ---
EXAM DESCRIPTION: CTA CHEST IMAGES COMPLETED DATE/TIME: 10/23/2019 4:33 pm REASON FOR STUDY: weak/tachycardia/fever COMPARISON: CT ABDOMEN PELVIS 09/30/2019, 09/18/2019 TECHNIQUE: CT scan of the chest performed using helical scanning technique with dynamic intravenous contrast injection. Images reviewed with lung, soft tissue and bone windows. Reconstructed coronal and sagittal MPR images reviewed. Additional 3 dimensional post-processing performed to develop Maximal Intensity Projection images (GA P). All images stored on PACS. All CT scanners at this facility use dose modulation, iterative reconstruction, and/or weight based d osing when appropriate to reduce radiation dose to as low as reasonably achievable (ALARA). [facility]: Dose Right [facility]: CareDose [facility]: Dose Right [facility]: Teradose 4D [facility]: Trendy Mondays CONTRAST TYPE AND DOSE: contrast/concentration: Isovue 350.00 mg/ml; Total Contrast Delivered: 50.0 ml; Total Saline Delivered: 76.0 ml Contrast bolus adequate for pulmonary arteries and aorta. RENAL FUNCTION: Creatinine 0.5 RADIATION DOSE: CT Rad equipment meets quality standard of care and radiation dose reduction techniq ues were employed. CTDIvol: 6.6 - 14.3 mGy. DLP: 484 mGy-cm. . LIMITATIONS: None. FINDINGS: In the upper abdomen, there is diffuse peripancreatic retroperitoneal fluid, with fluid tr acking along the lesser curvature of stomach. A rim enhancing 4 x 2 cm fluid collection is present o n axial image 113 likely a small lesser sac pseudocyst. Inflammation tracks superiorly in the retroperitoneal mole along the anterior pararenal space into th e tissue planes around the gastric cardia/GE junction. In this region, a 5.4 x 5.4 x 5.4 cm peripher al rim enhancing fluid collection is present, best shown on axial image 85 coronal image 35. This is worrisome for another pseudocyst dissecting from the pancreas. Superinfection could not be excluded . Post cholecystectomy. No intrahepatic biliary ductal dilatation. These findings were discussed with Dr. Perez in emergency room LUNGS AND PLEURA: No masses, infiltrates, or pneumothorax. No pleural effusions or pleural calcifica tions. AORTA AND GREAT VESSELS: No thoracic aortic aneurysm or dissection HEART: No pericardial effusion. No significant coronary artery calcifications. PULMONARY ARTERIES: No emboli visualized in the main pulmonary arteries or the segmental branches. HILAR AND MEDIASTINAL STRUCTURES: No identified masses or abnormal nodes. HARDWARE: None in the chest. UPPER ABDOMEN: As above THYROID AND OTHER SOFT TISSUES: No masses. No adenopathy. BONES: No acute or significant finding. 3D MIPS: Confirm above findings. OTHER: Findings discussed with Dr. Perez. IMPRESSION: Findings worrisome for pancreatitis with small lesser sac pseudocyst, larger upper retr operitoneal pseudocyst near the gastric cardia. COMMENT: Quality ID # [id number]: Final reports with documentation of one or more dose reduction techniques (e.g., Automated exposure control, adjustment of the mA and/or kV according to patient size, use of iterative reconstruction technique) TECHNICAL DOCUMENTATION: JOB ID: [id number] 2010 [employer]- All Rights Reserved Reading location - IP/workstation name: [email or web address]
[2019-10-23] MEDS ORDERED: PIPERACILLIN/TAZOBACTAM 4.5 GM VIAL IV ONE (17:14)
[2019-10-23] MEDS ORDERED: METRONIDAZOLE 500 MG/NS RTU 500 MG/100 ML RTUPB IV ONE (17:15)
--- NOTE | 2019-10-23 17:24 | ER Document Report ---
ED General - General Chief Complaint: Abnormal Lab Results Stated Complaint: ABNORMAL LABS Time Seen by Provider: 10/23/19 15:40 Primary Care Provider: ELAN CURRIE MD [Primary Care Provider] - Follow up as needed Mode of Arrival: Ambulatory Information source: Patient TRAVEL OUTSIDE OF THE [place] IN LAST 30 DAYS: No - HPI Notes: Patient presents with weakness. Please see yesterday's note for further details. Patient was in the hospital in the first week of August 2019 with pancreatitis. At that time she had an upper endoscopy with biopsy which showed gastritis. Her pancreatitis resolved however starting several days ago she began to have some weakness and fevers. Yesterday she went to her primary care doctor's office and was diagnosed with a urinary tract infection and given a dose of Rocephin. She was also referred to the emergency department yesterday for COVID testing. Patient has no known COVID risk factors and has had no URI symptoms. However she states that her primary care doctor said just because she had a fever he wanted to be careful and wanted John testing. While here in the emergency department yesterday patient was noticed to be tachycardic and to be febrile to 101. The fever returned to normal but she persisted to be tachycardic. I recommended to the patient that she be further evaluated but patient declined and signed out AGAINST MEDICAL ADVICE. Today during a telemedicine visit with her primary care doctor she was told that her labs show dehydration and that she needed to go to the emergency department for IV fluids. Today patient denies any pain. She states she still has some weakness but feels better than yesterday. She denies any shortness of breath cough cold or congestion. No problems with urination such as burning or dysuria. She denies any abdominal pain or vomiting. Her symptoms have been mild. The weakness is diffuse and worse with exertion and better with rest. The weakness is radiate throughout her body. - Related Data Allergies/Adverse Reactions: metformin Allergy (Verified 09/18/19 12:08) Past Medical History - General Information source: Patient - Social History Smoking Status: Current Every Day Smoker Frequency of alcohol use: None Drug Abuse: None Family History: Reviewed & Not Pertinent Patient has suicidal ideation: No Patient has homicidal ideation: No - Past Medical History Cardiac Medical History: Reports: Hx Hypertension Denies: Hx Coronary Artery Disease, Hx Heart Attack Pulmonary Medical History: Denies: Hx Asthma, Hx Bronchitis, Hx COPD, Hx Pneumonia Neurological Medical History: Denies: Hx Cerebrovascular Accident, Hx Seizures Endocrine Medical History: Reports: Hx Diabetes Mellitus Type 2. Denies: Hx Diabetes Mellitus Type 1 Musculoskeletal Medical History: Denies Hx Arthritis Skin Medical History: Reports Hx MRSA - upper arm Past Surgical History: Reports: Hx Section - x 1, Hx Cholecystectomy - Immunizations Hx Diphtheria, Pertussis, Tetanus Vaccination: No Review of Systems - Review of Systems Constitutional: Malaise, Weakness Cardiovascular: denies: See HPI, Palpitations Respiratory: denies: Cough, Short of breath -: Yes All other systems reviewed and negative Physical Exam - Vital signs Vitals: Temp Pulse Resp BP Pulse Ox 99.9 F 141 H 20 125/68 98 10/23/19 15:43 10/23/19 15:43 10/23/19 15:43 10/23/19 15:43 10/23/19 15:43 Interpretation: Tachycardic - General General appearance: Appears well, Alert - HEENT Head: Normocephalic, Atraumatic Eyes: Normal Pupils: PERRL - Respiratory Respiratory status: No respiratory distress Chest status: Nontender Breath sounds: Normal Chest palpation: Normal - Cardiovascular Rhythm: Regular, Tachycardia Heart sounds: Normal auscultation Murmur: No - Abdominal Inspection: Normal Distension: No distension Bowel sounds: Normal Tenderness: Tender - Mild epigastric Organomegaly: No organomegaly - Back Back: Normal, Nontender - Extremities General upper extremity: Normal inspection, Nontender, Normal color, Normal ROM, Normal temperature General lower extremity: Normal inspection, Nontender, Normal color, Normal ROM, Normal temperature, Normal weight bearing. No: Klever's sign - Neurological Neuro grossly intact: Yes Cognition: Normal Orientation: AAOx4 [place] Coma Scale Eye Opening: Spontaneous [place] Coma Scale Verbal: Oriented [place] Coma Scale Motor: Obeys Commands [place] Coma Scale Total: 15 Speech: Normal Motor strength normal: LUE, RUE, LLE, RLE Sensory: Normal - Psychological Associated symptoms: Normal affect, Normal mood - Skin Skin Temperature: Warm Skin Moisture: Dry Skin Color: Normal Course - Re-evaluation Re-evalutation: 10/23/19 17:22 Patient's chart was faxed over from the primary care doctor's office. Labs done yesterday are significant for a white count of 16,000. Here in the emergency department today it is 13,000. Patient also had an elevated C-reactive protein of 222 with a sed rate of 78 yesterday at her primary care doctor's office. Her lipase is normal. CT scan here today shows a questionable pseudocyst versus abscess adjacent to the pancreas stomach and esophagus. Patient does appear to have some type of occult infectious process with the fevers and labs as above as well as CT findings. I am going to start the patient on IV fluids and antibiotics. I have discussed the case with the netezza developer, Dr. Watson. I have also discussed the case with radiology. I have also discussed the case with the surgeon, Dr. Chinchilla. At this time it is felt the patient should be rehydrated and treated with antibiotics and possibly have an interventional radiology procedure to better ascertain the pathology seen on CT scan. - Vital Signs Vital signs: Temp Pulse Resp BP Pulse Ox 98.9 F 141 H 17 125/68 98 10/23/19 17:02 10/23/19 15:43 10/23/19 16:38 10/23/19 15:43 10/23/19 15:43 - Laboratory Result Diagrams: 10/23/19 16:16 10/23/19 16:16 Laboratory results interpreted by me: 10/23/19 10/23/19 10/23/19 16:16 16:16 16:16 WBC 13.3 H RBC 2.99 L Hgb 10.5 L Hct 30.8 L MCV 103 H MCH 35.0 H RDW 15.6 H Lymph % (Auto) 5.8 L Absolute Neuts (auto) 11.8 H Seg Neutrophils % 88.8 H Sodium 131.9 L Chloride 95 L BUN 6 L Creatinine 0.31 L Glucose 289 H Total Bilirubin 2.1 H Direct Bilirubin 1.3 H Alkaline Phosphatase 182 H Urine Protein 30 H Urine Glucose (UA) 50 H Urine Ketones 20 H Urine Urobilinogen 4.0 H Ur Leukocyte Esterase TRACE H - Diagnostic Test Radiology reviewed: Image reviewed, Reports reviewed - EKG Interpretation by Me EKG shows normal: Sinus rhythm Rate: Tachycardia - 128 Rhythm: NSR [place]/QRS: No: Right axis deviation, Left axis deviation Discharge - Discharge Clinical Impression: Tachycardia, Pseudocyst of pancreas Fever Qualifiers: Fever type: due to other condition Qualified Code(s): R50.81 - Fever presenting with conditions classified elsewhere Condition: Serious Disposition: ADMITTED INPATIENT Admitting Provider: Ladarius (Hospitalist) Unit Admitted: Telemetry Referrals: ELAN CURRIE MD [Primary Care Provider] - Follow up as needed
[2019-10-23] MEDS ORDERED: ACETAMINOPHEN 325 MG TABLET PO PRN (18:01)
[2019-10-23] MEDS ORDERED: IPRATROPIUM/ALBUTEROL 0.5-2.5 MG/3 ML AMPUL NEB PRN (18:01)
[2019-10-23] MEDS ORDERED: DEXTROSE 50%-WATER 25 GM/50 ML DISP.SYRIN IV PRN ×2 (18:01)
[2019-10-23] MEDS ORDERED: ONDANSETRON 4 MG TAB.RAPDIS PO PRN (18:01)
[2019-10-23] MEDS ORDERED: OXYCODONE-ACETAMINOPHEN 5-325 MG TABLET PO PRN (18:01)
[2019-10-23] MEDS ORDERED: DEXTROSE 40% GEL 15 GM TUBE PO PRN ×2 (18:01)
[2019-10-23] MEDS ORDERED: GLUCAGON,HUMAN RECOMB 1 MG INJ SUBCUT PRN (18:01)
--- NOTE | 2019-10-23 18:18 | PDOC H&P ---
History of Present Illness Admission Date/PCP: ELAN CURRIE MD History of Present Illness: CHELSEA LOMBARDO is a 53 year old female Patient was recently treated for pancreatitis. She had upper endoscopy done with biopsy which showed gastritis. She started feeling ill a few days ago presented to her primary care physician's office and was apparently diagnosed with a UTI. She was given a dose of Rocephin. She was sent to the emergency room where she had a COVID testing done at the instruction of her physician. There is no known COVID risk factors except that she had a fever. She was found to be tachycardic and it appears that the plan had been to admit her but patient declined and signed out AGAINST MEDICAL ADVICE. She was sent back to the emergency room today because she was thought to be dehydrated and she was still tachycardic and febrile. As per the PCPs note her CRP was found to be 222 with a sed rate of [address] scan today shows a questionable pseudocyst versus abscess. 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 Rest of her LFTs actually fairly normal. Patient also had a mild white count of 13,000. She has a low-grade fever of 99.9 and she remains tachycardic with initial pulse of 141 Past Medical History Cardiac Medical History: Reports: Hypertension Denies: Coronary Artery Disease, Myocardial Infarction Pulmonary Medical History: Denies: Asthma, Bronchitis, Chronic Obstructive Pulmonary Disease (COPD), Pneumonia Neurological Medical History: Denies: Seizures Endocrine Medical History: Reports: Diabetes Mellitus Type 2 Denies: Diabetes Mellitus Type 1 Musculoskeltal Medical History: Denies: Arthritis Hematology: Denies: Anemia Past Surgical History Past Surgical History: Reports: Section - x 1, Cholecystectomy Social History Smoking Status: Current Every Day Smoker Frequency of Alcohol Use: Heavy - States she stopped drinking about 4 months ago Drugs: None - Advance Directive Resuscitation Status: Full Code Family History Family History: Reviewed & Not Pertinent Parental Family History Reviewed: No Children Family History Reviewed: No Sibling(s) Family History Reviewed.: No Medication/Allergy Home Medications: Aspirin [Aspirin 81 mg Chewable Tablet] 81 mg PO DAILY 09/03/19 Atorvastatin Calcium [Lipitor 10 mg Tablet] 10 mg PO DAILY 09/03/19 Gabapentin [Neurontin 300 mg Capsule] 300 mg PO DAILY 09/03/19 Glimepiride [Amaryl 4 mg Tablet] 4 mg PO DAILY 09/03/19 Lisinopril [Prinivil] 5 mg PO DAILY 09/03/19 Meclizine HCl 25 mg PO DAILY 09/03/19 Omeprazole 40 mg PO DAILY 09/03/19 Sitagliptin Phosphate [Januvia 50 mg Tablet] 100 mg PO DAILY 09/03/19 Sucralfate [Carafate 1 gm Tablet] 1 gm PO DAILY 09/03/19 Dicyclomine HCl [Bentyl 10 mg Capsule] 1 cap PO TID #30 cap 09/18/19 Ondansetron [Zofran Odt 4 mg Tablet] 1 - 2 tab PO Q4HP PRN #10 tab.rapdis 09/18/19 Potassium Chloride 10 meq PO DAILY #5 tablet.er 09/18/19 Sucralfate [Carafate Susp 1 Gm/10 Ml Udcup] 1 gm PO TID 10 Days #1 bottle 09/18/19 Ondansetron [Zofran Odt 4 mg Tablet] 1 - 2 tab PO Q4H PRN #20 tab.rapdis 09/30/19 Potassium Chloride [Klor-Con 10 Meq Tablet ER] 10 meq PO Q12 #20 tablet.sa 09/30/19 Promethazine HCl [Phenergan 25 mg Tablet] 1 - 2 tab PO Q6H PRN #20 tablet 0 09/30/19 Allergies/Adverse Reactions: metformin Allergy (Verified 09/18/19 12:08) Review of Systems Constitutional: PRESENT: chills, fever(s). ABSENT: headache(s), weight gain, weight loss Eyes: ABSENT: visual disturbances Ears: ABSENT: hearing changes Nose, Mouth, and Throat: ABSENT: mouth pain, sore throat Cardiovascular: ABSENT: chest pain, orthropnea, palpitations Gastrointestinal: ABSENT: abdominal pain, diarrhea, hematemesis Integumentary: ABSENT: rash Neurological: ABSENT: abnormal gait, abnormal speech, confusion, dizziness, focal weakness, syncope Physical Exam Vital Signs: Temp Pulse Resp BP Pulse Ox 98.9 F 141 H 17 125/68 98 10/23/19 17:02 10/23/19 15:43 10/23/19 16:38 10/23/19 15:43 10/23/19 15:43 Intake & Output 10/22/19 10/23/19 10/24/19 06:59 06:59 06:59 Intake Total 1999 Balance 1999 Weight 56.7 kg General appearance: PRESENT: no acute distress, cooperative Head exam: PRESENT: atraumatic, normocephalic Eye exam: PRESENT: conjunctiva pink, EOMI, PERRLA. ABSENT: scleral icterus Ear exam: PRESENT: normal external ear exam Mouth exam: PRESENT: tongue midline Neck exam: ABSENT: carotid bruit, JVD, lymphadenopathy, thyromegaly Respiratory exam: PRESENT: clear to auscultation rebecca, unlabored. ABSENT: rales, rhonchi, wheezes Cardiovascular exam: PRESENT: +S1, +S2, tachycardia. ABSENT: diastolic murmur, rubs, systolic murmur Pulses: PRESENT: normal dorsalis pedis pul Vascular exam: PRESENT: normal capillary refill GI/Abdominal exam: PRESENT: normal bowel sounds, soft. ABSENT: distended, guarding, mass, organolmegaly, rebound, tenderness Rectal exam: PRESENT: deferred Extremities exam: PRESENT: full ROM. ABSENT: calf tenderness, clubbing, pedal edema Neurological exam: PRESENT: alert, awake, oriented to person, oriented to place, oriented to time, oriented to situation, CN II-XII grossly intact. ABSENT: motor sensory deficit Psychiatric exam: PRESENT: appropriate affect, normal mood. ABSENT: homicidal ideation, suicidal ideation Skin exam: PRESENT: dry, intact, warm. ABSENT: cyanosis, rash Results Laboratory Results: 10/23/19 16:16 10/23/19 16:16 10/23/19 10/23/19 10/23/19 16:16 16:16 16:16 WBC 13.3 H RBC 2.99 L Hgb 10.5 L Hct 30.8 L MCV 103 H MCH 35.0 H MCHC 33.9 RDW 15.6 H Plt Count 234 Seg Neutrophils % 88.8 H Sodium 131.9 L Potassium 3.6 Chloride 95 L Carbon Dioxide 27 Anion Gap 10 BUN 6 L Creatinine 0.31 L Est GFR ( Amer) > 60 Glucose 289 H Calcium 8.8 Total Bilirubin 2.1 H AST 29 Alkaline Phosphatase 182 H Total Protein 7.2 Albumin 3.5 Urine Color KATHERINE Urine Appearance SLIGHTLY-CLOUDY Urine pH 5.0 Ur Specific [place] 1.014 Urine Protein 30 H Urine Glucose (UA) 50 H Urine Ketones 20 H Urine Blood NEGATIVE Urine Nitrite NEGATIVE Ur Leukocyte Esterase TRACE H Urine WBC (Auto) 3 Urine RBC (Auto) 2 10/23/19 16:16 Troponin I < 0.012 Impressions: Chest/Abdomen CTA 10/23/19 16:00 IMPRESSION: Findings worrisome for pancreatitis with small lesser sac pseudocyst, larger upper retroperitoneal pseudocyst near the gastric cardia. Assessment and Plan - Diagnosis (1) Sepsis Is this a current diagnosis for this admission?: Yes Plan: Possibly due to pancreatic abscess. Patient is tachycardic and she does have a leukocytosis. CT scan suggest a cirrhosis but this will likely to be drained as this could be infected. (2) Pseudocyst of pancreas Is this a current diagnosis for this admission?: Yes (3) Tachycardia Is this a current diagnosis for this admission?: Yes - Plan Summary Summary: Gives a history of alcohol abuse. She however states that she stopped drinking about 4 months ago. It appears she had been having bouts of pancreatitis and she finally came in and was admitted last month for pancreatitis Has been placed on Flagyl as well as Zosyn empirically, consultations with GI and general surgery as well as interventional radiology for abscess drainage if needed. - Time Time Spent with patient: 35 or more minutes Smoking Cessation Education: 3 to 10 minutes Anticipated discharge: Home Within: within 48 hours - Inpatient Certification Based on my medical assessment, after consideration of the patient's comorbidities, presenting symptoms, or acuity I expect that the services needed warrant INPATIENT care.: Yes Medical Necessity: Need Close Monitoring Due to Risk of Patient Decompensation, Need for IV Antibiotics
--- NOTE | 2019-10-23 18:57 | PDOC CONSULTATION ---
Consultation Consult Date: 10/23/19 Provider Consulted: YENNI CONDON Consult reason:: nausea, vomiting, possible infected pseudocyst History of Present Illness Admission Date/PCP: 10/23/19 17:29 ELAN CURRIE MD History of Present Illness: CHELSEA LOMBARDO is a 53 year old female I am asked to see this patient who had presented to the ED patient has not been feeling well over the past several months she had been referred back in August for epigastric pain an EGD was done, no ulcers were noted she had a CT scan in August that showed evidence of pancreatitis she represented to the ED in September there was noted improvement of her pancreatitis at that time but there is also evidence to indicate a new fluid collection , likely the start of the pseudocyst now patient presents and another CT scan shows likely infected pseudocyst with possible fluid collection behind the gastric cardia she is being admitted with tachycardia, febrile illness a leukocytosis with the abnormal CT finding likely indicative of an an abscess due to previous history of pancreatitis with pseudocyst formation, infection and then possible perforation of the cyst I had suggested a surgical consult but at the time of this noted, I do not see a surgical note even though patient may have already had a surgical evaluation however I did speak to the ED physician and suggested an urgent transfer so that drainage of the cyst could be done by Interventional Radiology vs transfer to tertiary institution where transgastric drainage of the pseudocyst could be done with needle knife. she was subsequently admitted to the hospitalist service here. Past Medical History Cardiac Medical History: Reports: Hypertension Denies: Coronary Artery Disease, Myocardial Infarction Pulmonary Medical History: Denies: Asthma, Bronchitis, Chronic Obstructive Pulmonary Disease (COPD), Pneumonia Neurological Medical History: Denies: Seizures Endocrine Medical History: Reports: Diabetes Mellitus Type 2 Denies: Diabetes Mellitus Type 1 Musculoskeltal Medical History: Denies: Arthritis Hematology: Denies: Anemia Past Surgical History Past Surgical History: Reports: Section - x 1, Cholecystectomy Social History Smoking Status: Current Every Day Smoker Frequency of Alcohol Use: Heavy - States she stopped drinking about 4 months ago Drugs: None - Advance Directive Resuscitation Status: Full Code Family History Family History: Reviewed & Not Pertinent Parental Family History Reviewed: Yes Children Family History Reviewed: Unknown Sibling(s) Family History Reviewed.: Unknown Medication/Allergy Home Medications: Aspirin [Aspirin 81 mg Chewable Tablet] 81 mg PO DAILY 09/03/19 Atorvastatin Calcium [Lipitor 10 mg Tablet] 10 mg PO DAILY 09/03/19 Gabapentin [Neurontin 300 mg Capsule] 300 mg PO DAILY 09/03/19 Glimepiride [Amaryl 4 mg Tablet] 4 mg PO DAILY 09/03/19 Lisinopril [Prinivil] 5 mg PO DAILY 09/03/19 Meclizine HCl 25 mg PO DAILY 09/03/19 Omeprazole 40 mg PO DAILY 09/03/19 Sitagliptin Phosphate [Januvia 50 mg Tablet] 100 mg PO DAILY 09/03/19 Sucralfate [Carafate 1 gm Tablet] 1 gm PO DAILY 09/03/19 Dicyclomine HCl [Bentyl 10 mg Capsule] 1 cap PO TID #30 cap 09/18/19 Ondansetron [Zofran Odt 4 mg Tablet] 1 - 2 tab PO Q4HP PRN #10 tab.rapdis 09/18/19 Potassium Chloride 10 meq PO DAILY #5 tablet.er 09/18/19 Sucralfate [Carafate Susp 1 Gm/10 Ml Udcup] 1 gm PO TID 10 Days #1 bottle 09/18/19 Ondansetron [Zofran Odt 4 mg Tablet] 1 - 2 tab PO Q4H PRN #20 tab.rapdis 09/30/19 Potassium Chloride [Klor-Con 10 Meq Tablet ER] 10 meq PO Q12 #20 tablet.sa 09/30/19 Promethazine HCl [Phenergan 25 mg Tablet] 1 - 2 tab PO Q6H PRN #20 tablet 09/30/19 Allergies/Adverse Reactions: metformin Allergy (Verified 09/18/19 12:08) Review of Systems Constitutional: PRESENT: fever(s), night sweats, weakness. ABSENT: headache(s) Eyes: ABSENT: visual disturbances Ears: ABSENT: hearing changes Nose, Mouth, and Throat: ABSENT: mouth pain, sore throat Cardiovascular: PRESENT: edema Respiratory: PRESENT: dyspnea. ABSENT: hemoptysis Gastrointestinal: PRESENT: nausea, vomiting. ABSENT: diarrhea, hematemesis, hematochezia, melena Genitourinary: ABSENT: dysuria, hematuria Musculoskeletal: ABSENT: deformity, joint swelling Integumentary: ABSENT: pruritus Neurological: ABSENT: syncope, tingling, tremor(s), vertigo Endocrine: PRESENT: polyphagia. ABSENT: polydipsia, polyuria Hematologic/Lymphatic: ABSENT: easy bruising Physical Exam Vital Signs: Temp Pulse Resp BP Pulse Ox 98.7 F 141 H 20 107/91 H 100 10/23/19 18:25 10/23/19 15:43 10/23/19 18:03 10/23/19 18:03 10/23/19 18:03 Intake & Output 10/22/19 10/23/19 10/24/19 06:59 06:59 06:59 Intake Total 1999 Balance 1999 Weight 56.7 kg General appearance: PRESENT: mild distress Head exam: PRESENT: atraumatic, normocephalic Eye exam: PRESENT: EOMI, PERRLA. ABSENT: nystagmus, periorbital swelling, scleral icterus Mouth exam: PRESENT: moist, neck supple Neck exam: ABSENT: meningismus, tenderness, thyromegaly Respiratory exam: PRESENT: symmetrical, unlabored. ABSENT: tachypnea, wheezes GI/Abdominal exam: PRESENT: guarding, normal bowel sounds, rebound, soft. ABSENT: Pettit's sign, organolmegaly Extremities exam: ABSENT: joint swelling, pedal edema Musculoskeletal exam: PRESENT: full ROM Neurological exam: PRESENT: alert, awake, CN II-XII grossly intact Skin exam: PRESENT: normal color. ABSENT: mottled, pallor, urticaria, vesicles Results Laboratory Results: 10/23/19 16:16 10/23/19 16:16 10/23/19 10/23/19 10/23/19 16:16 16:16 16:16 WBC 13.3 H RBC 2.99 L Hgb 10.5 L Hct 30.8 L MCV 103 H MCH 35.0 H MCHC 33.9 RDW 15.6 H Plt Count 234 Seg Neutrophils % 88.8 H Sodium 131.9 L Potassium 3.6 Chloride 95 L Carbon Dioxide 27 Anion Gap 10 BUN 6 L Creatinine 0.31 L Est GFR ( Amer) > 60 Glucose 289 H Calcium 8.8 Total Bilirubin 2.1 H AST 29 Alkaline Phosphatase 182 H Total Protein 7.2 Albumin 3.5 Urine Color KATHERINE Urine Appearance SLIGHTLY-CLOUDY Urine pH 5.0 Ur Specific [place] 1.014 Urine Protein 30 H Urine Glucose (UA) 50 H Urine Ketones 20 H Urine Blood NEGATIVE Urine Nitrite NEGATIVE Ur Leukocyte Esterase TRACE H Urine WBC (Auto) 3 Urine RBC (Auto) 2 10/23/19 16:16 Troponin I < 0.012 Impressions: Chest/Abdomen CTA 10/23/19 16:00 IMPRESSION: Findings worrisome for pancreatitis with small lesser sac pseudocyst, larger upper retroperitoneal pseudocyst near the gastric cardia. Assessment & Plan - Diagnosis (1) Pseudocyst of pancreas Is this a current diagnosis for this admission?: Yes Plan: likely pancreatitis with pseudocyst formation with subsequent infection , and possibly have abscess as noted she is having fever, tachycardia, leukocytosis and likely early sepsis will need broad spectrum antibiotics will need drainage either with interventional radiology vs EUS with needle knife transgastric approach at a tertiary institution I still believe that the patient should be transferred unless surgery can do it here - Time Time Spent: 50 to 70 Minutes
--- NOTE | 2019-10-23 20:56 | PDOC CONSULTATION ---
Consultation Consult Date: 10/23/19 Provider Consulted: SURGICAL SURGICALIST Consult reason:: Pancreatic pseudocyst, questionably infected. History of Present Illness Admission Date/PCP: 10/23/19 17:29 ELAN CURRIE MD History of Present Illness: CHELSEA LOMBARDO is a 53 year old female seen at the request of the hospitalist service. This is a patient with a history of alcohol abuse (per report quit several months ago). She has recurring pancreatitis, her last episode was last month. Patient was admitted to hospital at that time and treated for pancreatitis. Her pancreatitis resolved with supportive care. On last admission, a small cystic lesion was seen in the tail of the pancreas, consistent with a developing pseudocyst. Recently, the patient has undergone treatment for urinary tract infection. She has been taking outpatient antibiotics for this. Patient presents to the hospital today at the instruction of her primary care provider. She does complain of a cough and low-grade fevers. She is being tested for COVID-19 as an outpatient. The patient reports no symptoms whatsoever. She reports that she "feels better today than she has in a long time". She denies abdominal pain, nausea, vomiting, chills, malaise, fatigue, dizziness, blurry vision, headache. She does have intermittent swelling in her feet, for which she has been taking Lasix. A CT scan was per formed in the ER showing a fluid collection in the lesser sac, potentially consistent with a pancreatic pseudocyst. Past Medical History Cardiac Medical History: Reports: Hypertension Denies: Coronary Artery Disease, Myocardial Infarction Pulmonary Medical History: Denies: Asthma, Bronchitis, Chronic Obstructive Pulmonary Disease (COPD), Pneumonia Neurological Medical History: Denies: Seizures Endocrine Medical History: Reports: Diabetes Mellitus Type 2 Denies: Diabetes Mellitus Type 1 Musculoskeltal Medical History: Denies: Arthritis Hematology: Denies: Anemia Past Surgical History Past Surgical History: Reports: Section - x 1, Cholecystectomy Social History Smoking Status: Current Every Day Smoker Frequency of Alcohol Use: Heavy - States she stopped drinking about 4 months ago Drugs: None - Advance Directive Resuscitation Status: Full Code Family History Family History: Reviewed & Not Pertinent Parental Family History Reviewed: Yes Children Family History Reviewed: Yes Sibling(s) Family History Reviewed.: Yes Medication/Allergy Home Medications: Aspirin [Aspirin 81 mg Chewable Tablet] 81 mg PO DAILY 09/03/19 Atorvastatin Calcium [Lipitor 10 mg Tablet] 10 mg PO DAILY 09/03/19 Gabapentin [Neurontin 300 mg Capsule] 300 mg PO DAILY 09/03/19 Glimepiride [Amaryl 4 mg Tablet] 4 mg PO DAILY 09/03/19 Lisinopril [Prinivil] 5 mg PO DAILY 09/03/19 Meclizine HCl 25 mg PO DAILY 09/03/19 Omeprazole 40 mg PO DAILY 09/03/19 Sitagliptin Phosphate [Januvia 50 mg Tablet] 100 mg PO DAILY 09/03/19 Sucralfate [Carafate 1 gm Tablet] 1 gm PO DAILY 09/03/19 Dicyclomine HCl [Bentyl 10 mg Capsule] 1 cap PO TID #30 cap 09/18/19 Ondansetron [Zofran Odt 4 mg Tablet] 1 - 2 tab PO Q4HP PRN #10 tab.rapdis 09/18/19 Potassium Chloride 10 meq PO DAILY #5 tablet.er 09/18/19 Sucralfate [Carafate Susp 1 Gm/10 Ml Udcup] 1 gm PO TID 10 Days #1 bottle 09/18/19 Ondansetron [Zofran Odt 4 mg Tablet] 1 - 2 tab PO Q4H PRN #20 tab.rapdis 09/30/19 Potassium Chloride [Klor-Con 10 Meq Tablet ER] 10 meq PO Q12 #20 tablet.sa 09/30/19 Promethazine HCl [Phenergan 25 mg Tablet] 1 - 2 tab PO Q6H PRN #20 tablet 09/30/19 Allergies/Adverse Reactions: metformin Allergy (Verified 09/18/19 12:08) Review of Systems Constitutional: ABSENT: anorexia, chills, fatigue Eyes: ABSENT: visual disturbances Ears: ABSENT: hearing changes Nose, Mouth, and Throat: ABSENT: sore throat Cardiovascular: ABSENT: chest pain Respiratory: PRESENT: cough Gastrointestinal: ABSENT: abdominal pain, hematemesis, hematochezia, melena, nausea, vomiting Genitourinary: ABSENT: dysuria Musculoskeletal: ABSENT: back pain Integumentary: ABSENT: pruritus, rash Neurological: ABSENT: confusion, convulsions, dizziness Psychiatric: ABSENT: anxiety, depression Endocrine: ABSENT: cold intolerance, heat intolerance Hematologic/Lymphatic: ABSENT: easy bleeding, easy bruising Physical Exam Vital Signs: Temp Pulse Resp BP Pulse Ox 98.7 F 141 H 17 104/61 100 10/23/19 18:25 10/23/19 15:43 10/23/19 19:00 10/23/19 19:00 10/23/19 19:00 Intake & Output 10/22/19 10/23/19 10/24/19 06:59 06:59 06:59 Intake Total 1999 Balance 1999 Weight 56.7 kg General appearance: PRESENT: no acute distress, cooperative Head exam: PRESENT: atraumatic, normocephalic Eye exam: PRESENT: EOMI, PERRLA Mouth exam: PRESENT: moist, neck supple Neck exam: ABSENT: tenderness, thyromegaly, tracheal deviation, tracheostomy Respiratory exam: PRESENT: unlabored. ABSENT: tachypnea, wheezes Cardiovascular exam: PRESENT: tachycardia Pulses: PRESENT: normal radial pulses Vascular exam: PRESENT: normal capillary refill GI/Abdominal exam: PRESENT: soft. ABSENT: distended, guarding, rigid, ten derness Rectal exam: PRESENT: deferred Extremities exam: ABSENT: clubbing Musculoskeletal exam: ABSENT: deformity Neurological exam: PRESENT: alert, awake, oriented to person, oriented to place, oriented to time, oriented to situation, CN II-XII grossly intact Psychiatric exam: ABSENT: agitated, anxious, depressed Focused psych exam: ABSENT: delusional Skin exam: ABSENT: cyanosis, erythema Results Laboratory Results: 10/23/19 16:16 10/23/19 16:16 10/23/19 10/23/19 10/23/19 16:16 16:16 16:16 WBC 13.3 H RBC 2.99 L Hgb 10.5 L Hct 30.8 L MCV 103 H MCH 35.0 H MCHC 33.9 RDW 15.6 H Plt Count 234 Seg Neutrophils % 88.8 H Sodium 131.9 L Potassium 3.6 Chloride 95 L Carbon Dioxide 27 Anion Gap 10 BUN 6 L Creatinine 0.31 L Est GFR ( Amer) > 60 Glucose 289 H Lactic Acid Calcium 8.8 Total Bilirubin 2.1 H AST 29 Alkaline Phosphatase 182 H Total Protein 7.2 Albumin 3.5 Urine Color KATHERINE Urine Appearance SLIGHTLY-CLOUDY Urine pH 5.0 Ur Specific [place] 1.014 Urine Protein 30 H Urine Glucose (UA) 50 H Urine Ketones 20 H Urine Blood NEGATIVE Urine Nitrite NEGATIVE Ur Leukocyte Esterase TRACE H Urine WBC (Auto) 3 Urine RBC (Auto) 2 10/23/19 18:01 WBC RBC Hgb Hct MCV MCH MCHC RDW Plt Count Seg Neutrophils % Sodium Potassium Chloride Carbon Dioxide Anion Gap BUN Creatinine Est GFR ( Amer) Glucose Lactic Acid 0.9 Calcium Total Bilirubin AST Alkaline Phosphatase Total Protein Albumin Urine Color Urine Appearance Urine pH Ur Specific [place] Urine Protein Urine Glucose (UA) Urine Ketones Urine Blood Urine Nitrite Ur Leukocyte Esterase Urine WBC (Auto) Urine RBC (Auto) 10/23/19 16:16 Troponin I < 0.012 Impressions: Chest/Abdomen CTA 10/23/19 16:00 IMPRESSION: Findings worrisome for pancreatitis with small lesser sac pseudocyst, larger upper retroperitoneal pseudocyst near the gastric cardia. Assessment & Plan - Diagnosis (1) Pseudocyst of pancreas Is this a current diagnosis for this admission?: Yes - Plan Summary Plan Summary: This is a 53-year-old female with a mild leukocytosis and low-grade fevers. She is currently being treated for urinary tract infection. I will order urine culture, in an effort to identify a causative organism. I have reviewed the patient's CT scan. She has a long history of pancreatitis. She certainly has a fluid collection in the lesser sac measuring approximately 5 cm in diameter. It does appear to be associated with the pancreas. The most likely cause of this would be either an inflammatory fluid collection related to her pancreatitis, or a developing pseudocyst. I highly doubt infection of the pseudocyst at this time. She has no imaging indications of active infection (including air within the pseudocyst or an inflammatory rind). She has no physical exam findings to suggest acute infection of her pseudocyst (nausea, vomiting, abdominal pain). While unlikely, it is possible to develop infection of a pseudocyst. If no other source of infection can be identified, aspiration of the pseudocyst would be diagnostic. This should be performed either via interventional radiology or endoscopic ultrasound guided aspiration. There is no role for surgery in this patient. Surgery at this time will sign off. Please renotify with any questions or concerns.
[2019-10-23] MEDS: FAMOTIDINE INJ/PF 20 MG/2 ML SDV IV SCH (22:25)
[2019-10-24] MEDS: PIPERACILLIN SODIUM/TAZOBACTAM 3.375 GM in NORMAL SALINE 100 ML IV SCH ×5 (02:55→23:04)
[2019-10-24] MEDS: METRONIDAZOLE 500 MG/NS RTU 500 MG/100 ML RTUPB IV SCH ×4 (03:29→21:29)
[2019-10-24] MEDS: NORMAL SALINE 1000 ML 1,000 ML IV PRN ×2 (03:32→09:35)
[2019-10-24 06:06] LABS: ABSOLUTE BASOPHILS # (AUTO) 0.1 10^3/uL (0.0-0.2); ABSOLUTE EOSINOPHILS # (AUTO) 0.1 10^3/uL (0.0-0.6); ABSOLUTE LYMPHOCYTES (AUTO) 1.2 10^3/uL (0.5-4.7); ABSOLUTE MONOCYTES (AUTO) 0.4 10^3/uL (0.1-1.4); ABSOLUTE NEUT (AUTO) 8.5 10^3/uL (1.7-8.2); BASOPHILS % (AUTO) 0.7 % (0-2); EOSINOPHILS % (AUTO) 0.8 % (0-6); HEMATOCRIT 23.1 % (36.0-47.0); MEAN CORPUSCULAR HGB CONC 34.5 g/dL (32.0-36.0); MEAN CORPUSCULAR VOLUME 102 fl (80-97); MONOCYTES % (AUTO) 3.9 % (3-13); PLATELET COUNT 163 10^3/uL (150-450); RED BLOOD COUNT 2.28 10^6/uL (3.72-5.28); RED CELL DISTRIBUTION WIDTH 15.2 % (11.5-14.0); SEGMENTED NEUTROPHILS % (AUTO) 82.6 % (42-78); TOTAL CELLS COUNTED % (AUTO) 100 %; WHITE BLOOD COUNT 10.3 10^3/uL (4.0-10.5)
[2019-10-24 06:26] LABS: ALBUMIN 2.2 g/dL (3.5-5.0); ALKALINE PHOSPHATASE 118 U/L (38-126); ANION GAP 7 (5-19); ASPARTATE AMINO TRANSFERASE 19 U/L (14-36); BILIRUBIN,DIRECT 0.7 mg/dL (0.0-0.4); BILIRUBIN,TOTAL 1.3 mg/dL (0.2-1.3); CALCIUM 7.1 mg/dL (8.4-10.2); CARBON DIOXIDE 24 mmol/L (22-30); CHLORIDE 102 mmol/L (98-107); GLUCOSE 298 mg/dL (75-110); POTASSIUM 3.2 mmol/L (3.6-5.0)
[2019-10-24 06:31] LABS: BLOOD UREA NITROGEN < 2 mg/dL (7-20)
[2019-10-24] MEDS ORDERED: ONDANSETRON 4 MG TAB.RAPDIS PO PRN ×2 (07:30)
[2019-10-24 07:52] LABS: INTERNATIONAL RATION (INR) 1.21; PROTHROMBIN TIME 15.4 SEC (11.4-15.4)
[2019-10-24 07:53] LABS: PARTIAL THROMBOPLASTIN TIME 33.1 SEC (23.5-35.8)
--- NOTE | 2019-10-24 08:16 | EKG REPORT ---
SEVERITY:- OTHERWISE NORMAL ECG - SINUS TACHYCARDIA : Confirmed by: Kristi Fernandez MD 24-Oct-2019 08:15:56
[2019-10-24] MEDS: FAMOTIDINE INJ/PF 20 MG/2 ML SDV IV SCH ×2 (09:34→21:29)
--- NOTE | 2019-10-24 12:02 | CDI QUERY ---
CDI Query CDI Review: Dear Provider, PLEASE DOCUMENT IN PROGRESS NOTES AND D/C SUMMARY IF YOU AGREE WITH THE CLINICAL INDICATORS: HYPONATREMIA? INSIGNIFICANT FINDING? OTHER? Na+ 131.9 / 133.4 IVF's NS infusion
[2019-10-24] MEDS ORDERED: POTASSIUM CHLORIDE 10 MEQ TABLET.ER PO ONE (16:00)
--- NOTE | 2019-10-24 16:48 | PDOC PROGRESS REPORT ---
Subjective Progress Note for:: 10/24/19 Subjective:: Follow-up of abdominal pain Reason For Visit: SEPSIS,PANCREATIC ABSCESS? Physical Exam Vital Signs: Temp Pulse Resp BP Pulse Ox 98.8 F 99 16 109/65 100 10/24/19 15:28 10/24/19 15:28 10/24/19 15:28 10/24/19 15:28 10/24/19 15:28 Intake & Output 10/23/19 10/24/19 10/25/19 06:59 06:59 06:59 Intake Total 2818 560 Output Total 200 Balance 2618 560 Weight 59.1 kg General appearance: PRESENT: no acute distress, well-developed, well-nourished Head exam: PRESENT: atraumatic, normocephalic Eye exam: PRESENT: conjunctiva pink, EOMI, PERRLA. ABSENT: scleral icterus Ear exam: PRESENT: normal external ear exam Mouth exam: PRESENT: moist, tongue midline Neck exam: ABSENT: carotid bruit, JVD, lymphadenopathy, thyromegaly Respiratory exam: PRESENT: clear to auscultation rebecca. ABSENT: rales, rhonchi, wheezes Cardiovascular exam: PRESENT: +S1, +S2, tachycardia. ABSENT: diastolic murmur, rubs, systolic murmur Pulses: PRESENT: normal dorsalis pedis pul Vascular exam: PRESENT: normal capillary refill GI/Abdominal exam: PRESENT: normal bowel sounds, soft. ABSENT: distended, guarding, mass, organolmegaly, rebound, tenderness Rectal exam: PRESENT: deferred Extremities exam: PRESENT: full ROM. ABSENT: calf tenderness, clubbing, pedal edema Neurological exam: PRESENT: alert, awake, oriented to person, oriented to place, oriented to time, oriented to situation, CN II-XII grossly intact. ABSENT: motor sensory deficit Psychiatric exam: PRESENT: appropriate affect, normal mood. ABSENT: homicidal ideation, suicidal ideation Skin exam: PRESENT: dry, intact, warm. ABSENT: cyanosis, rash Results Laboratory Results: 10/24/19 05:42 10/24/19 05:42 10/23/19 10/23/19 10/24/19 16:16 18:01 05:42 WBC 10.3 RBC 2.28 L Hgb 8.0 L D Hct 23.1 L MCV 102 H MCH 35.0 H MCHC 34.5 RDW 15.2 H Plt Count 163 Seg Neutrophils % 82.6 H Sodium 131.9 L Potassium 3.6 Chloride 95 L Carbon Dioxide 27 Anion Gap 10 BUN 6 L Creatinine 0.31 L Est GFR ( Amer) > 60 Glucose 289 H Lactic Acid 0.9 Calcium 8.8 Total Bilirubin 2.1 H AST 29 Alkaline Phosphatase 182 H Total Protein 7.2 Albumin 3.5 Lipase 10/24/19 10/24/19 05:42 05:42 WBC RBC Hgb Hct MCV MCH MCHC RDW Plt Count Seg Neutrophils % Sodium 133.4 L Potassium 3.2 L Chloride 102 Carbon Dioxide 24 Anion Gap 7 BUN < 2 L Creatinine 0.28 L Est GFR ( Amer) > 60 Glucose 298 H Lactic Acid Calcium 7.1 L Total Bilirubin 1.3 AST 19 Alkaline Phosphatase 118 Total Protein 5.0 L Albumin 2.2 L Lipase 85.2 10/23/19 16:16 Troponin I < 0.012 Impressions: Chest/Abdomen CTA 10/23/19 16:00 IMPRESSION: Findings worrisome for pancreatitis with small lesser sac pseudocyst, larger upper retroperitoneal pseudocyst near the gastric cardia. Assessment and Plan - Diagnosis (1) Sepsis Is this a current diagnosis for this admission?: Yes (2) Pseudocyst of pancreas Is this a current diagnosis for this admission?: Yes (3) Tachycardia Is this a current diagnosis for this admission?: Yes (4) Anemia Is this a current diagnosis for this admission?: Yes (5) Hyponatremia Is this a current diagnosis for this admission?: Yes (6) Hypokalemia Is this a current diagnosis for this admission?: Yes - Plan Summary Summary: Gives a history of alcohol abuse. She however states that she stopped drinking about 4 months ago. It appears she had been having bouts of pancreatitis and she finally came in and was admitted last month for pancreatitis Has been placed on Flagyl as well as Zosyn empirically, consultations with GI and general surgery as well as interventional radiology for abscess drainage if needed. 10/23 patient feels much better. Her tachycardia is improved and she has also noted that her heart rate is not as fast as it was. COVID 19 test is negative and she has been moved out of the COVID unit Patient's hemoglobin noted to have dropped to 8. There is no clear evidence of acute bleeding however if her hemoglobin continues to drop will notify devulcanizer loader who has already seen her - Time Time Spent with patient: 15-24 minutes
[2019-10-25] MEDS: NORMAL SALINE 1000 ML 1,000 ML IV PRN (02:01)
[2019-10-25] MEDS: METRONIDAZOLE 500 MG/NS RTU 500 MG/100 ML RTUPB IV SCH ×4 (03:10→21:59)
[2019-10-25 05:13] LABS: ABSOLUTE BASOPHILS # (AUTO) 0.1 10^3/uL (0.0-0.2); ABSOLUTE EOSINOPHILS # (AUTO) 0.1 10^3/uL (0.0-0.6); ABSOLUTE LYMPHOCYTES (AUTO) 1.1 10^3/uL (0.5-4.7); ABSOLUTE MONOCYTES (AUTO) 0.5 10^3/uL (0.1-1.4); ABSOLUTE NEUT (AUTO) 7.2 10^3/uL (1.7-8.2); ABSOLUTE RETICS # 0.057 10^6/uL (0.028-0.122); BASOPHILS % (AUTO) 0.9 % (0-2); EOSINOPHILS % (AUTO) 0.9 % (0-6); HEMATOCRIT 22.8 % (36.0-47.0); LYMPHOCYTES % (AUTO) 12.2 % (13-45); MEAN CORPUSCULAR HEMOGLOBIN 34.5 pg (27.0-33.4); MEAN CORPUSCULAR HGB CONC 33.8 g/dL (32.0-36.0); MEAN CORPUSCULAR VOLUME 102 fl (80-97); MONOCYTES % (AUTO) 5.8 % (3-13); PLATELET COUNT 158 10^3/uL (150-450); RED BLOOD COUNT 2.24 10^6/uL (3.72-5.28); RED CELL DISTRIBUTION WIDTH 15.2 % (11.5-14.0); RETICULOCYTE COUNT (AUTO) 2.55 % (0.66-2.85); SEGMENTED NEUTROPHILS % (AUTO) 80.2 % (42-78); TOTAL CELLS COUNTED % (AUTO) 100 %; WHITE BLOOD COUNT 8.9 10^3/uL (4.0-10.5)
[2019-10-25 05:18] LABS: HEMOGLOBIN 7.7 g/dL (12.0-15.5)
[2019-10-25 05:23] LABS: IRON(TIBC) 27.8 ug/dL (37-170)
[2019-10-25] MEDS: PIPERACILLIN SODIUM/TAZOBACTAM 3.375 GM in NORMAL SALINE 100 ML IV SCH ×4 (05:46→23:04)
[2019-10-25 06:29] LABS: FOLATE 6.83 ng/mL (>2.76)
[2019-10-25 09:37] LABS: ANION GAP 6 (5-19); BLOOD UREA NITROGEN 2 mg/dL (7-20); CARBON DIOXIDE 20 mmol/L (22-30); CHLORIDE 106 mmol/L (98-107); GLUCOSE 250 mg/dL (75-110); POTASSIUM 3.6 mmol/L (3.6-5.0)
[2019-10-25] MEDS: FAMOTIDINE INJ/PF 20 MG/2 ML SDV IV SCH ×2 (10:01→21:59)
[2019-10-25] MEDS ORDERED: NORMAL SALINE 1000 ML 1,000 ML IV PRN (14:44)
--- NOTE | 2019-10-25 14:45 | PDOC PROGRESS REPORT ---
Subjective Progress Note for:: 10/25/19 Subjective:: Follow-up of abdominal pain Reason For Visit: SEPSIS,PANCREATIC ABSCESS? Physical Exam Vital Signs: Temp Pulse Resp BP Pulse Ox 98.1 F 89 16 114/90 H 99 10/25/19 07:31 10/25/19 07:31 10/25/19 07:31 10/25/19 07:31 10/25/19 07:31 Intake & Output 10/24/19 10/25/19 10/26/19 06:59 06:59 06:59 Intake Total 2818 2760 880 Output Total 200 Balance 2618 2760 880 Weight 59.1 kg 62.4 kg General appearance: PRESENT: no acute distress, other - much better looking today Head exam: PRESENT: atraumatic, normocephalic Eye exam: PRESENT: conjunctiva pink, EOMI. ABSENT: scleral icterus Ear exam: PRESENT: normal external ear exam Mouth exam: PRESENT: moist, tongue midline Neck exam: ABSENT: carotid bruit, JVD, lymphadenopathy, thyromegaly Respiratory exam: PRESENT: clear to auscultation rebecca. ABSENT: rales, rhonchi, wheezes Cardiovascular exam: PRESENT: RRR, +S1, +S2. ABSENT: diastolic murmur, rubs, systolic murmur Pulses: PRESENT: normal dorsalis pedis pul Vascular exam: PRESENT: normal capillary refill GI/Abdominal exam: PRESENT: normal bowel sounds, soft. ABSENT: distended, guarding, mass, organolmegaly, rebound, tenderness Rectal exam: PRESENT: deferred Extremities exam: PRESENT: full ROM. ABSENT: calf tenderness, clubbing, pedal edema Neurological exam: PRESENT: alert, awake, oriented to person, oriented to place, oriented to time, oriented to situation, CN II-XII grossly intact. ABSENT: motor sensory deficit Psychiatric exam: PRESENT: appropriate affect, normal mood. ABSENT: homicidal ideation, suicidal ideation Skin exam: PRESENT: dry, intact, warm. ABSENT: cyanosis, rash Results Laboratory Results: 10/25/19 04:28 10/25/19 04:28 10/25/19 10/25/19 10/25/19 04:28 04:28 04:28 WBC 8.9 RBC 2.24 L Hgb 7.7 L Hct 22.8 L MCV 102 H MCH 34.5 H MCHC 33.8 RDW 15.2 H Plt Count 158 Seg Neutrophils % 80.2 H Retic Count (auto) 2.55 Sodium 132.2 L Potassium 3.6 Chloride 106 Carbon Dioxide 20 L Anion Gap 6 BUN 2 L Creatinine 0.29 L Est GFR ( Amer) > 60 Glucose 250 H Calcium 7.0 L* Iron 27.8 L TIBC 176 L % Saturation 16 Ferritin 442.00 H Vitamin B12 847.0 Folate 6.83 10/23/19 16:16 Troponin I < 0.012 Impressions: Chest/Abdomen CTA 10/23/19 16:00 IMPRESSION: Findings worrisome for pancreatitis with small lesser sac pseudocyst, larger upper retroperitoneal pseudocyst near the gastric cardia. Assessment and Plan - Diagnosis (1) Sepsis Is this a current diagnosis for this admission?: Yes (2) Pseudocyst of pancreas Is this a current diagnosis for this admission?: Yes (3) Tachycardia Is this a current diagnosis for this admission?: Yes (4) Anemia Is this a current diagnosis for this admission?: Yes (5) Hyponatremia Is this a current diagnosis for this admission?: Yes (6) Hypokalemia Is this a current diagnosis for this admission?: Yes - Plan Summary Summary: Gives a history of alcohol abuse. She however states that she stopped drinking about 4 months ago. It appears she had been having bouts of pancreatitis and she finally came in and was admitted last month for pancreatitis Has been placed on Flagyl as well as Zosyn empirically, consultations with GI and general surgery as well as interventional radiology for abscess drainage if needed. 10/23 patient feels much better. Her tachycardia is improved and she has also noted that her heart rate is not as fast as it was. COVID 19 test is negative and she has been moved out of the COVID unit 10/24 Patient's hemoglobin noted to have dropped to 8. There is no clear evidence of acute bleeding however if her hemoglobin continues to drop will notify gastroe nterologist who has already seen herPatient has had a drop in her hemoglobin since admission currently at 7.8 precise etiology is unclear. I know that she has been receiving IV fluids since admission but I am not sure if this will explain the drop in hemoglobin. I will decrease her IV fluids as she is been able to tolerate her oral diet. She does have microcytic indices which may be consistent with her history of alcohol abuse. Patient states she stopped drinking about 4 months ago when she developed pancreatitis. She is iron deficient and started on oral iron vitamin B12 and folic acid are within normal. She is already been seen by a needle punch machine operator but this will need further outpatient follow-up as needed She is also noted to be hypokalemic and this has been replaced and corrected calcium is about 8.8. Patient is tentatively scheduled for aspiration of the pancreatic cirrhosi sabscess in a.m. however it is unclear if this is feasible. There is some concern that this may not be approachable from the standard route. Patient was very tachycardic and obviously septic on initial presentation with IV antibiotics she has improved and so I will suggest a repeat CT in a.m. if unable to obtain drainage by IR. She is Day 3 on Flagyl and Zosyn with marked improvement
[2019-10-26] MEDS: METRONIDAZOLE 500 MG/NS RTU 500 MG/100 ML RTUPB IV SCH ×3 (02:02→14:16)
[2019-10-26 05:18] LABS: ABSOLUTE BASOPHILS # (AUTO) 0.1 10^3/uL (0.0-0.2); ABSOLUTE EOSINOPHILS # (AUTO) 0.1 10^3/uL (0.0-0.6); ABSOLUTE LYMPHOCYTES (AUTO) 0.8 10^3/uL (0.5-4.7); ABSOLUTE MONOCYTES (AUTO) 0.5 10^3/uL (0.1-1.4); ABSOLUTE NEUT (AUTO) 8.8 10^3/uL (1.7-8.2); BASOPHILS % (AUTO) 0.6 % (0-2); EOSINOPHILS % (AUTO) 0.7 % (0-6); HEMOGLOBIN 8.2 g/dL (12.0-15.5); LYMPHOCYTES % (AUTO) 8.1 % (13-45); MEAN CORPUSCULAR HEMOGLOBIN 34.8 pg (27.0-33.4); MEAN CORPUSCULAR HGB CONC 34.1 g/dL (32.0-36.0); MEAN CORPUSCULAR VOLUME 102 fl (80-97); PLATELET COUNT 156 10^3/uL (150-450); RED BLOOD COUNT 2.35 10^6/uL (3.72-5.28); RED CELL DISTRIBUTION WIDTH 15.1 % (11.5-14.0); SEGMENTED NEUTROPHILS % (AUTO) 85.6 % (42-78); TOTAL CELLS COUNTED % (AUTO) 100 %; WHITE BLOOD COUNT 10.3 10^3/uL (4.0-10.5)
[2019-10-26] MEDS: PIPERACILLIN SODIUM/TAZOBACTAM 3.375 GM in NORMAL SALINE 100 ML IV SCH ×3 (05:47→18:37)
[2019-10-26] MEDS: FAMOTIDINE INJ/PF 20 MG/2 ML SDV IV SCH (10:16)
[2019-10-26 17:08] VITALS: BP 124/65
--- NOTE | 2019-10-26 18:41 | PDOC TRANSFER SUMMARY ---
General Admission Date/PCP: 10/23/19 17:29 ELAN CURRIE MD Transfer Date: 10/26/19 Accepting Facility: [facility] Resuscitation Status: Full Code - Transfer Diagnosis (1) Anemia Is this a current diagnosis for this admission?: Yes (3) Hypokalemia Is this a current diagnosis for this admission?: Yes (4) Hyponatremia Is this a current diagnosis for this admission?: Yes (5) Pseudocyst of pancreas Is this a current diagnosis for this admission?: Yes (6) Sepsis Is this a current diagnosis for this admission?: Yes (7) Tachycardia Is this a current diagnosis for this admission?: Yes - Transfer Medications Home Medications: Aspirin [Ecotrin 81 mg EC Tablet] 81 mg PO DAILY 10/24/19 Atorvastatin Calcium [Lipitor 10 mg Tablet] 10 mg PO QHS 10/24/19 Ciprofloxacin HCl [Cipro 500 mg Tablet] 500 mg PO Q12 10/24/19 Furosemide [Lasix 40 mg Tablet] 40 mg PO DAILY 10/24/19 Gabapentin [Neurontin 300 mg Capsule] 300 mg PO QHS 10/24/19 Glimepiride [Amaryl 4 mg Tablet] 4 mg PO DAILY 10/24/19 Omeprazole 40 mg PO Q6AM 10/24/19 Potassium Chloride [Klor-Con 10 Meq Tablet ER] 10 meq PO DAILY 10/24/19 Transfer Medications: Current Medications Acetaminophen (Tylenol 325 Mg Tablet) 650 mg PO Q4HP PRN PRN Reason: FOR PAIN SCALE 1-2 Stop: 11/22/19 18:00 Albuterol/Ipratropium (Duoneb 3 Ml Ampul) 3 ml NEB RTQ6HP PRN PRN Reason: SHORTNESS OF BREATH Stop: 11/22/19 18:00 Dextrose (Dextrose Inj 50% Syringe (25 Gm/50 Ml)) 12.5 gm IV PRN PRN; Protocol PRN Reason: FOR BG 50-69 IN ALERT PATIENT Stop: 11/22/19 18:00 Dextrose (Dextrose Inj 50% Syringe (25 Gm/50 Ml)) 25 gm IV PRN PRN; Protocol PRN Reason: See Label Comments Stop: 11/22/19 18:00 Famotidine (Pepcid Inj/Pf 20 Mg/2 Ml Sdv) 20 mg IV Q12 DIEGO Stop: 11/22/19 21:59 Last Admin: 10/26/19 10:16 Dose: 20 mg Documented by: Glucagon (Glucagen Inj 1 Mg Vial) 1 mg SUBCUT PRN PRN; Protocol PRN Reason: Evaluate for BG < 70 Stop: 11/22/19 18:00 Glucose (Glutose 40% Gel 15 Gm Tube) 15 gm PO PRN PRN; Protocol PRN Reason: For BG 50-69 in Alert Patient Stop: 11/22/19 18:00 Glucose (Glutose 40% Gel 15 Gm Tube) 30 gm PO PRN PRN; Protocol PRN Reason: FOR BG < 50 IN ALERT PATIENT Stop: 11/22/19 18:00 Piperacillin Sod/Tazobactam (Sod 3.375 gm/ Sodium Chloride) 100 mls @ 200 mls/hr IV Q6 DIEGO Stop: 10/31/19 00:00 Last Infusion: 10/26/19 13:09 Dose: Infused Documented by: Metronidazole (Flagyl Rtu 500 Mg/Ns 100ml Premix) 500 mg in 100 mls @ 100 mls/hr IV Q6A DIEGO Stop: 10/31/19 02:59 Last Infusion: 10/26/19 15:16 Dose: Infused Documented by: Sodium Chloride (Nacl 0.9% 1000 Ml Iv Soln) 1,000 mls @ 75 mls/hr IV CONTINUOUS PRN PRN Reason: THIS MED IS NOT "PRN" Stop: 11/22/19 18:00 Last Admin: 10/26/19 05:47 Dose: 75 mls/hr Documented by: Ondansetron HCl (Zofran Odt 4 Mg Tablet) 4 mg PO Q6HP PRN PRN Reason: FOR NAUSEA/VOMITING Stop: 11/22/19 18:00 Oxycodone/Acetaminophen (Percocet 5-325 Mg Tablet) 1 tab PO Q6HP PRN PRN Reason: FOR PAIN SCALE 3-4 Stop: 10/30/19 18:00 - Allergies Allergies/Adverse Reactions: metformin Allergy (Verified 09/18/19 12:08) Hospital Course Hospital Course: HPI Per admitting physician: "CHELSEA LOMBARDO is a 53 year old female Patient was recently treated for pancreatitis. She had upper endoscopy done with biopsy which showed gastritis. She started feeling ill a few days ago presented to her primary care physician's office and was apparently diagnosed with a UTI. She was given a dose of Rocephin. She was sent to the emergency room where she had a COVID testing done at the instruction of her physician. There is no known COVID risk factors except that she had a fever. She was found to be tachycardic and it appears that the plan had been to admit her but patient declined and signed out AGAINST MEDICAL ADVICE. She was sent back to the emergency room today because she was thought to be dehydrated and she was still tachycardic and febrile. As per the PCPs note her CRP was found to be 222 with a sed rate of [address] scan today shows a questionable pseudocyst versus abscess. Patient has been admitted for further manage as well as material stress tester at Bilirubin today is 2.1 down from a high of 10 on September 29 and alkaline phosph atase is 182 from a high of 349. Rest of her LFTs actually fairly normal. Patient also had a mild white count of 13,000. She has a low-grade fever of 99.9 and she remains tachycardic with initial pulse of 141" Interim hospital course Per admitting physician: "Gives a history of alcohol abuse. She however states that she stopped drinking about 4 months ago. It appears she had been having bouts of pancreatitis and she finally came in and was admitted last month for pancreatitis Has been placed on Flagyl as well as Zosyn empirically, consultations with GI and general surgery as well as interventional radiology for abscess drainage if needed. 10/23 patient feels much better. Her tachycardia is improved and she has also noted that her heart rate is not as fast as it was. COVID 19 test is negative and she has been moved out of the COVID unit 10/24 Patient's hemoglobin noted to have dropped to 8. There is no clear evidence of acute bleeding however if her hemoglobin continues to drop will notify material stress tester who has already seen herPatient has had a drop in her hemoglobin since admission currently at 7.8 precise etiology is unclear. I know that she has been receiving IV fluids since admission but I am not sure if this will explain the drop in hemoglobin. I will decrease her IV fluids as she is been able to tolerate her oral diet. She does have microcytic indices which may be consistent with her history of alcohol abuse. Patient states she stopped drinking about 4 months ago when she developed pancreatitis. She is iron deficient and started on oral iron vitamin B12 and folic acid are within normal. She is already been seen by a material stress tester but this will need further outpatient follow-up as needed She is also noted to be hypokalemic and this has been replaced and corrected calcium is about 8.8. Patient is tentatively scheduled for aspiration of the pancreatic cirrhosisabscess in a.m. however it is unclear if this is feasible. There is some concern that this may not be approachable from the standard route. Patient was very tachycardic and obviously septic on initial presentation with IV antibiotics she has improved and so I will suggest a repeat CT in a.m. if unable to obtain drainage by IR. She is Day 3 on Flagyl and Zosyn with marked improvement" Hospital course as of 10/26/2019 Patient admitted for sepsis and acute pancreatitis with pseudocyst/abscess seen on CT abdomen. Started on IV antibiotics. General surgery consulted who stated they cannot drain the abscess. GI consulted who stated patient will need an EUS if interventional radiology is unable to drain the abscess. Interventional radiology said they could not drain the abscess as it would need to be a transgastric approach done by a GI physician with EUS. Patient stabilized hemodynamically for transportation. Yoly accepted transfer to medicine service with GI consult. I discussed the case with GI in great detail over the phone who agreed with the plan. Patient may be transferred to outside hospital for procedure and sent back here for the remainder of her hospitalization if they prefer. Otherwise, she can remain at that outside facility for the rest of her stay. Physical Exam Vital Signs: Temp Pulse Resp BP Pulse Ox 98.1 F 92 16 124/65 100 10/26/19 15:27 10/26/19 15:27 10/26/19 15:27 10/26/19 15:27 10/26/19 15:27 Intake & Output 10/25/19 10/26/19 10/27/19 06:59 06:59 06:59 Intake Total 2760 1960 300 Balance 2760 1960 300 Weight 62.4 kg 63.4 kg General appearance: PRESENT: no acute distress, well-developed, well-nourished Head exam: PRESENT: atraumatic, normocephalic Eye exam: PRESENT: conjunctiva pink Mouth exam: PRESENT: moist Respiratory exam: PRESENT: clear to auscultation rebecca. ABSENT: rales, rhonchi, wheezes Cardiovascular exam: PRESENT: RRR. ABSENT: diastolic murmur, rubs, systolic murmur GI/Abdominal exam: PRESENT: normal bowel sounds, soft, tenderness - Very mild epigastric abdominal pain. ABSENT: distended, guarding, mass, organolmegaly, rebound Musculoskeletal exam: PRESENT: ambulatory Neurological exam: PRESENT: alert, awake, oriented to person, oriented to place, oriented to time, oriented to situation Psychiatric exam: PRESENT: appropriate affect, normal mood Skin exam: PRESENT: dry, intact, warm Results Laboratory Results: 10/26/19 04:31 10/25/19 04:28 10/26/19 04:31 WBC 10.3 RBC 2.35 L Hgb 8.2 L Hct 24.0 L MCV 102 H MCH 34.8 H MCHC 34.1 RDW 15.1 H Plt Count 156 Seg Neutrophils % 85.6 H 10/24/19 04:40 Clean Catch Midstream Urine Culture - Final NO GROWTH 2 DAYS 10/23/19 16:16 Troponin I < 0.012 Impressions: Chest/Abdomen CTA 10/23/19 16:00 IMPRESSION: Findings worrisome for pancreatitis with small lesser sac pseudocyst, larger upper retroperitoneal pseudocyst near the gastric cardia. Plan Discharge Plan: Transfer to [facility]. Plan discussed in great detail with patient and accepting physician GI all whom agree with the plan and wished to proceed. Patient will be transported via ambulance. Patient accepts all risk associated with the transfer. Time Spent: Greater than 30 Minutes
== END 2019-10-26 20:02 | disposition short-term general hospital (02) | DRG 872 ==
LOC: ER 15:36 → EH 17:29 → 5 20:02 → 4N 10-24 13:55
PROVIDERS: ADMIT Internal Medicine; ATTEND Internal Medicine
DX: A41.9 Sepsis, unspecified organism (principal); K86.3 Pseudocyst of pancreas; E87.1 Hypo-osmolality and hyponatremia; E86.0 Dehydration; R00.0 Tachycardia, unspecified; D64.9 Anemia, unspecified; E87.6 Hypokalemia; I10 Essential (primary) hypertension; E11.65 Type 2 diabetes mellitus with hyperglycemia; F17.210 Nicotine dependence, cigarettes, uncomplicated; F10.11 Alcohol abuse, in remission; Y90.9 Presence of alcohol in blood, level not specified; Z86.14 Personal history of Methicillin resistant Staphylococcus aureus infection; Z79.84 Long term (current) use of oral hypoglycemic drugs; Z79.82 Long term (current) use of aspirin; Z79.899 Other long term (current) drug therapy
CPT/HCPCS: 36415; 71275; 80048; 80053; 81001; 82272; 82607; 82728; 82746; 83540; 83550; 83605; 83690; 84484; 85025; 85045; 85610; 85730; 87040; 87086; 93005; 93010; 96360; 99285; J2543; J3490; J7030; J7050; S0028

== ENCOUNTER 2020-04-17 15:38 | Emergency (ER) | payer OTHER ==
--- NOTE | 2020-04-17 16:31 | ER Document Report ---
ED Medical Screen (RME) - General Chief Complaint: Abnormal Lab Results Stated Complaint: ABNORMAL LABS Time Seen by Provider: 04/17/20 16:23 Primary Care Provider: ELAN CURRIE MD [Primary Care Provider] - Follow up as needed TRAVEL OUTSIDE OF THE [place] IN LAST 30 DAYS: No - HPI Notes: 04/17/20 16:32 54-year-old female to the emergency department with complaints of abnormal labs from her primary care. She states her primary care called her yesterday and told her to go to the ER. She states that she was told that she had low blood pressure and was dehydrated. She also states that she had a CT of her abdomen. She states she thinks that Dr. Currie told her that her lipase level is off. She states she has a history of pancreatitis. She states that she has been having off-and-on upper abdominal pain. Denies any nausea, vomiting, chest pain, shortness of breath, headache. She denies any fevers or chills. I performed a brief medical screening exam on the patient determined that the patient needs further evaluation and management by main side provider. I have placed initial orders to help expedite care. - Related Data Allergies/Adverse Reactions: metformin Allergy (Verified 04/17/20 16:22) Past Medical History - Past Medical History Cardiac Medical History: Reports: Hx Hypertension Denies: Hx Coronary Artery Disease, Hx Heart Attack Pulmonary Medical History: Denies: Hx Asthma, Hx Bronchitis, Hx COPD, Hx Pneumonia Neurological Medical History: Denies: Hx Cerebrovascular Accident, Hx Seizures Endocrine Medical History: Reports: Hx Diabetes Mellitus Type 2. Denies: Hx Diabetes Mellitus Type 1 Musculoskeltal Medical History: Denies Hx Arthritis Skin Medical History: Reports Hx MRSA - upper arm Psychiatric Medical History: Denies: Hx Depression Past Surgical History: Reports: Hx Section - x 1, Hx Cholecystectomy - Immunizations Hx Diphtheria, Pertussis, Tetanus Vaccination: No Physical Exam - Vital signs Vitals: Temp Pulse Resp BP Pulse Ox 98.2 F 117 H 18 115/74 96 04/17/20 15:52 04/17/20 15:52 04/17/20 15:52 04/17/20 15:52 04/17/20 15:52 Course - Vital Signs Vital signs: Temp Pulse Resp BP Pulse Ox 98.2 F 117 H 18 115/74 96 04/17/20 15:52 04/17/20 15:52 04/17/20 15:52 04/17/20 15:52 04/17/20 15:52 Doctor's Discharge - Discharge Referrals: ELAN CURRIE MD [Primary Care Provider] - Follow up as needed
[2020-04-17 17:20] LABS: ABSOLUTE EOSINOPHILS # (AUTO) 0.2 10^3/uL (0.0-0.6); ABSOLUTE LYMPHOCYTES (AUTO) 1.7 10^3/uL (0.5-4.7); ABSOLUTE MONOCYTES (AUTO) 0.7 10^3/uL (0.1-1.4); ABSOLUTE NEUT (AUTO) 9.6 10^3/uL (1.7-8.2); BASOPHILS % (AUTO) 0.4 % (0-2); EOSINOPHILS % (AUTO) 1.3 % (0-6); HEMATOCRIT 38.9 % (36.0-47.0); HEMOGLOBIN 13.4 g/dL (12.0-15.5); MEAN CORPUSCULAR HEMOGLOBIN 34.3 pg (27.0-33.4); MEAN CORPUSCULAR HGB CONC 34.4 g/dL (32.0-36.0); MEAN CORPUSCULAR VOLUME 100 fl (80-97); MONOCYTES % (AUTO) 5.6 % (3-13); PLATELET COUNT 159 10^3/uL (150-450); RED CELL DISTRIBUTION WIDTH 13.5 % (11.5-14.0); SEGMENTED NEUTROPHILS % (AUTO) 78.7 % (42-78); TOTAL CELLS COUNTED % (AUTO) 100 %; WHITE BLOOD COUNT 12.2 10^3/uL (4.0-10.5)
[2020-04-17 17:35] LABS: ALBUMIN 4.8 g/dL (3.5-5.0); ALKALINE PHOSPHATASE 354 U/L (38-126); ASPARTATE AMINO TRANSFERASE 106 U/L (14-36); BILIRUBIN,DIRECT 0.6 mg/dL (0.0-0.4); BILIRUBIN,TOTAL 0.9 mg/dL (0.2-1.3); BLOOD UREA NITROGEN 10 mg/dL (7-20); CALCIUM 10.5 mg/dL (8.4-10.2); CARBON DIOXIDE 18 mmol/L (22-30); CHLORIDE 91 mmol/L (98-107); GLUCOSE 340 mg/dL (75-110); POTASSIUM 4.2 mmol/L (3.6-5.0); TOTAL PROTEIN 7.9 g/dL (6.3-8.2)
[2020-04-17 17:39] LABS: ANION GAP 22 (5-19)
--- NOTE | 2020-04-17 18:29 | ER Document Report ---
ED General - General Chief Complaint: Abnormal Lab Results Stated Complaint: ABNORMAL LABS Time Seen by Provider: 04/17/20 16:23 Primary Care Provider: ELAN CURRIE MD [Primary Care Provider] - Follow up as needed Mode of Arrival: Ambulatory Information source: Patient Notes: Patient is a 54-year-old female with history of pancreatitis with pseudocyst who has been managed by a specialist in [place] but has been following just with lab work with her local doctor in [place]. Apparently she received a message yesterday from her primary care doctor telling her to come to the hospital because her labs were abnormal. Unfortunately the message was accidentally erased but the patient's believes he remembered the doctor saying that she needed IV fluids. They also think that he wanted her to have her CT scan repeated. She is feeling generally weak but has not been vomiting or having any excruciating abdominal pain. TRAVEL OUTSIDE OF THE [place] IN LAST 30 DAYS: No - Related Data Allergies/Adverse Reactions: metformin Allergy (Verified 04/17/20 16:22) Home Medications: Lantus 20 units daily Past Medical History - Social History Smoking Status: Current Every Day Smoker Chew tobacco use (# tins/day): No Drug Abuse: None Family History: Reviewed & Not Pertinent Patient has homicidal ideation: No - Past Medical History Cardiac Medical History: Reports: Hx Hypertension Denies: Hx Coronary Artery Disease, Hx Heart Attack Pulmonary Medical History: Denies: Hx Asthma, Hx Bronchitis, Hx COPD, Hx Pneumonia Neurological Medical History: Denies: Hx Cerebrovascular Accident, Hx Seizures Endocrine Medical History: Reports: Hx Diabetes Mellitus Type 2. Denies: Hx Diabetes Mellitus Type 1 Musculoskeletal Medical History: Denies Hx Arthritis Skin Medical History: Reports Hx MRSA - upper arm Psychiatric Medical History: Denies: Hx Depression Past Surgical History: Reports: Hx Section - x 1, Hx Cholecystectomy - Immunizations Hx Diphtheria, Pertussis, Tetanus Vaccination: No Review of Systems - Review of Systems Notes: Constitutional: No fevers. No chills. Positive for weakness EENT: No eye redness. No eye pain. No ear pain. No sore throat. Cardiovascular: No chest pain. No palpitations. Respiratory: No cough. No shortness of breath. No respiratory distress. Gastrointestinal: No abdominal pain. No nausea, vomiting, or diarrhea. Genitourinary: Atraumatic. No lesions. No pain. No discharge. Musculoskeletal: Atraumatic. No swelling. No deformities. Skin: No rash or lesions. Lymphatic: No swollen lymph nodes. Neurologic: No headache. No syncope. Psychiatric: No suicidal or homicidal ideation. Physical Exam - Vital signs Vitals: Temp Pulse Resp BP Pulse Ox 98.2 F 117 H 18 115/74 96 04/17/20 15:52 04/17/20 15:52 04/17/20 15:52 04/17/20 15:52 04/17/20 15:52 - Notes Notes: General: Well-developed, well-nourished. In no acute distress. Non-toxic appearing. Cardiac: Well-perfused. Regular rate and rhythm. No murmurs, rubs, or gallops. Pulmonary: No respiratory distress. No cyanosis. Bilateral lung hanson are clear to auscultation. Abdominal: Non-distended. Non-rigid. Bowels sounds are present in all four quadrants. No guarding or rebound. HEENT: Head is atraumatic. Conjunctivae not reddened. No tearing. PERRL. EOMI. Orbits atraumatic. No periorbital swelling or erythema. Oropharynx is without erythema, swelling, or exudates. Neck: Supple. No adenopathy. No meningismus. Dermatologic: Warm with good turgor. No rash. Atraumatic. Chest: Atraumatic. No chest wall tenderness to palpation. Musculoskeletal: Moves all extremities well. No range of motion deficits. no muscular or joint tenderness. No paraspinal muscle tenderness. no midline spinal tenderness or step-off. Genitourinary: Examination deferred Neurologic: No gross neurologic deficits. Psychiatric: Normal mood. Course - Re-evaluation Re-evalutation: 04/17/20 19:20 Patient's sodium is a little bit on the low side. Will hydrate with 2 L normal saline. Her CT scan actually does not even mention pseudocyst at this point. Danielle conley will give her these 2 L of normal saline and send her home for close follow-up with her primary care doctor in [place] 04/17/20 22:41 Patient's sodium actually made very little change. Her potassium is now low. Her sugar has gone up. Discussed case with Dr. Horton in the emergency department. We will get a venous blood gas. Get some more fluids going. Get some insulin. Potassium 40 mEq p.o. reassess 04/18/20 00:54 Anion gap is corrected. Patient does continue to have low sodium. We did replete her potassium with 40 of potassium chloride. Feeling well will discharge. Recommended eating salty diet. See her doctor in the next 1 to 2 days, preferably tomorrow 04/18/20 00:57 All lab results were conferred with attending Dr. Horton. States if patient feeling better we can discharge her home - Vital Signs Vital signs: Temp Pulse Resp BP Pulse Ox 98.3 F 118 H 18 137/81 H 100 04/17/20 20:01 04/17/20 20:01 04/17/20 20:01 04/17/20 20:01 04/17/20 20:01 - Laboratory Result Diagrams: 04/17/20 17:00 04/17/20 21:20 Laboratory results interpreted by me: 04/17/20 04/17/20 04/17/20 17:00 17:00 21:20 WBC 12.2 H MCV 100 H MCH 34.3 H Absolute Neuts (auto) 9.6 H Seg Neutrophils % 78.7 H VBG pCO2 VBG HCO3 Sodium 131.0 L 129.8 L Potassium 3.5 L Chloride 91 L 97 L Carbon Dioxide 18 L 17 L Anion Gap 22 H BUN 6 L Creatinine 0.31 L 0.25 L Glucose 340 H 376 H Calcium 10.5 H Direct Bilirubin 0.6 H AST 106 H ALT 119 H Alkaline Phosphatase 354 H 04/17/20 23:56 WBC MCV MCH Absolute Neuts (auto) Seg Neutrophils % VBG pCO2 27.3 L VBG HCO3 15.9 L Sodium Potassium Chloride Carbon Dioxide Anion Gap BUN Creatinine Glucose Calcium Direct Bilirubin AST ALT Alkaline Phosphatase Discharge - Discharge Clinical Impression: Hyponatremia, History of pancreatitis, Hyperglycemia, Transaminitis Condition: Good Disposition: HOME, SELF-CARE Instructions: Hyponatremia ([facility]) Additional Instructions: Eat salty foods. Follow-up with your doctor preferably tomorrow. Referrals: ELAN CURRIE MD [Primary Care Provider] - Follow up tomorrow
--- NOTE | 2020-04-17 19:06 | RADIOLOGY REPORT (SQ) ---
EXAM DESCRIPTION: CT ABD/PELVIS WITH IV ONLY IMAGES COMPLETED DATE/TIME: 04/17/2020 6:46 pm REASON FOR STUDY: epigastric abd pain, hx of pancreatitis COMPARISON: 09/30/2019 TECHNIQUE: CT scan of the abdomen and pelvis performed using helical scanning technique with dynamic intravenous contrast injection. No oral contrast. Images reviewed with lung, soft tissue, and bone windows. Reconstructed coronal and sagittal MPR images reviewed. Delayed images for evaluation of the urinary system also acquired. All images stored on PACS. All CT scanners at this facility use dose modulation, iterative reconstruction, and/or weight based d osing when appropriate to reduce radiation dose to as low as reasonably achievable (ALARA). [facility]: Dose Right [facility]: CareDose [facility]: Dose Right [facility]: Teradose 4D [facility]: [employer] CONTRAST TYPE AND DOSE: contrast/concentration: Isovue 350.00 mmol/ml; Total Contrast Delivered: 55. 0 ml; Total Saline Delivered: 35.2 ml RENAL FUNCTION: BUN 10 creatinine 0.31 RADIATION DOSE: CT Rad equipment meets quality standard of care and radiation dose reduction techniq ues were employed. CTDIvol: 4.8 - 5.5 mGy. DLP: 534 mGy-cm.. LIMITATIONS: None. FINDINGS: LOWER CHEST: No significant findings. No nodules or infiltrates. LIVER: Hepatomegaly. The liver is diffusely hypoattenuating. No masses. SPLEEN: Mild splenomegaly. The splenic index is around 600. PANCREAS: There are no pancreatic or peripancreatic inflammatory changes or fluid collections. No si gnificant pancreatic ductal dilatation. There is no thickening of the anterior renal fascia. GALLBLADDER: Surgically absent. ADRENAL GLANDS: No significant masses or asymmetry. RIGHT KIDNEY AND URETER: No solid masses. No significant calcifications. No hydronephrosis or hyd roureter. LEFT KIDNEY AND URETER: No solid masses. No significant calcifications. No hydronephrosis or hydr oureter. AORTA AND VESSELS: No aneurysm. No dissection. Renal arteries, SMA, celiac without stenosis. RETROPERITONEUM: No retroperitoneal adenopathy, hemorrhage or masses. BOWEL AND PERITONEAL CAVITY: No masses or inflammatory changes. No free fluid or peritoneal masses. APPENDIX: Not identified. PELVIS: Urinary bladder is normal. Once again there is a cyst in the pelvis that does not appear to be associated with the adnexae. ABDOMINAL WALL: No masses. No hernias. BONES: No significant or acute findings. OTHER: No other significant finding. IMPRESSION: 1. Hepatosplenomegaly. Hepatic steatosis. 2. There is no evidence of acute pancreatitis. 3. Stable cyst in the pelvis. TECHNICAL DOCUMENTATION: JOB ID: [id number] Quality ID # 436: Final reports with documentation of one or more dose reduction techniques (e.g., Au tomated exposure control, adjustment of the mA and/or kV according to patient size, use of iterative reconstruction technique) 2010 [employer]- All Rights Reserved Reading location - IP/workstation name: [email or web address]
[2020-04-17] MEDS: NORMAL SALINE 1000 ML 1,000 ML IV PRN ×2 (19:29→21:14)
[2020-04-17 21:49] LABS: ANION GAP 16 (5-19); BLOOD UREA NITROGEN 6 mg/dL (7-20); CALCIUM 8.5 mg/dL (8.4-10.2); CARBON DIOXIDE 17 mmol/L (22-30); CHLORIDE 97 mmol/L (98-107); GLUCOSE 376 mg/dL (75-110); POTASSIUM 3.5 mmol/L (3.6-5.0)
[2020-04-17] MEDS ORDERED: RINGERS SOLUTION,LACTATED 1,000 ML IV ONE (22:36)
[2020-04-17] MEDS ORDERED: INSULIN REG, HUMAN 100 UNIT/ML 3 ML VIAL (PYX) IV ONE (22:40)
[2020-04-17] MEDS ORDERED: POTASSIUM CHLORIDE 10 MEQ TABLET.ER PO ONE (22:40)
[2020-04-18 00:10] LABS: VENOUS BLOOD BASE EXCESS -7.9 mmol/L; VENOUS BLOOD HCO3 15.9 mmol/L (20-32); VENOUS BLOOD PCO2 27.3 mmHg (35-63); VENOUS BLOOD PH 7.38 (7.30-7.42)
[2020-04-18 01:26] VITALS: BP 121/75
== END 2020-04-18 01:38 | disposition home or self-care (01) ==
LOC: ER 15:38
DX: E87.1 Hypo-osmolality and hyponatremia (principal); R74.01 Elevation of levels of liver transaminase levels; R53.1 Weakness; R10.10 Upper abdominal pain, unspecified; E11.65 Type 2 diabetes mellitus with hyperglycemia; I10 Essential (primary) hypertension; Z90.49 Acquired absence of other specified parts of digestive tract; Z86.14 Personal history of Methicillin resistant Staphylococcus aureus infection; Z79.84 Long term (current) use of oral hypoglycemic drugs
CPT/HCPCS: 99285; 96361 ×2; 96374; 36415; 83690; 83735; 85025; 80053; 82803; 74177; J1815; J7030; J7120

== ENCOUNTER 2020-05-07 22:24 | Emergency (ER) | payer OTHER ==
--- NOTE | 2020-05-07 23:57 | ER Document Report ---
ED Medical Screen (RME) - General Stated Complaint: GENERAL WEAKNESS/NUMBNESS IN FEET Time Seen by Provider: 05/07/20 23:46 Primary Care Provider: ELAN CURRIE MD [Primary Care Provider] - Follow up as needed Notes: 54-year-old female chief complaint of worsening but generalized weakness, increasing difficulty walking, and family member reports confusion episodes as well today. Patient has a history of alcohol abuse but has not had alcohol in 1 month reportedly, she also has a history of chronic pancreatitis and hyponatremia. No fever, chest pain, shortness of breath, vomiting, headache, or other complaints are reported at this time. She denies focal numbness or weakness but states she generally feels numb in her legs. TRAVEL OUTSIDE OF THE [place] IN LAST 30 DAYS: No - Related Data Allergies/Adverse Reactions: metformin Allergy (Verified 04/17/20 16:22) Past Medical History - Past Medical History Cardiac Medical History: Reports: Hx Hypertension Denies: Hx Coronary Artery Disease, Hx Heart Attack Pulmonary Medical History: Denies: Hx Asthma, Hx Bronchitis, Hx COPD, Hx Pneumonia Neurological Medical History: Denies: Hx Cerebrovascular Accident, Hx Seizures Endocrine Medical History: Reports: Hx Diabetes Mellitus Type 2. Denies: Hx Diabetes Mellitus Type 1 Musculoskeltal Medical History: Denies Hx Arthritis Skin Medical History: Reports Hx MRSA - upper arm Psychiatric Medical History: Denies: Hx Depression Past Surgical History: Reports: Hx Section - x 1, Hx Cholecystectomy - Immunizations Hx Diphtheria, Pertussis, Tetanus Vaccination: No Physical Exam - Vital signs Vitals: Temp Pulse Resp BP Pulse Ox 98.8 F 110 H 19 116/68 95 05/07/20 22:33 05/07/20 22:33 05/07/20 22:33 05/07/20 22:33 05/07/20 22:33 - Neurological Cognition: Normal Orientation: AAOx4 [place] Coma Scale Eye Opening: Spontaneous [place] Coma Scale Verbal: Oriented [place] Coma Scale Motor: Obeys Commands [place] Coma Scale Total: 15 Speech: Normal Cranial nerves: Normal Cerebellar coordination: Normal Motor strength normal: LUE, RUE, LLE, RLE Course - Re-evaluation Re-evalutation: I have greeted and performed a rapid initial assessment of this patient. A comprehensive ED assessment and evaluation of the patient, analysis of test results and completion of the medical decision making process will be conducted by additional ED providers. - Vital Signs Vital signs: Temp Pulse Resp BP Pulse Ox 98.8 F 110 H 19 116/68 95 05/07/20 22:33 05/07/20 22:33 05/07/20 22:33 05/07/20 22:33 05/07/20 22:33 Doctor's Discharge - Discharge Referrals: ELAN CURRIE MD [Primary Care Provider] - Follow up as needed
[2020-05-08 01:29] LABS: ABSOLUTE BASOPHILS # (AUTO) 0.1 10^3/uL (0.0-0.2); ABSOLUTE EOSINOPHILS # (AUTO) 0.1 10^3/uL (0.0-0.6); ABSOLUTE LYMPHOCYTES (AUTO) 1.3 10^3/uL (0.5-4.7); ABSOLUTE MONOCYTES (AUTO) 0.5 10^3/uL (0.1-1.4); ABSOLUTE NEUT (AUTO) 4.2 10^3/uL (1.7-8.2); BASOPHILS % (AUTO) 0.8 % (0-2); EOSINOPHILS % (AUTO) 1.3 % (0-6); HEMATOCRIT 42.8 % (36.0-47.0); HEMOGLOBIN 14.8 g/dL (12.0-15.5); LYMPHOCYTES % (AUTO) 21.2 % (13-45); MEAN CORPUSCULAR HEMOGLOBIN 34.2 pg (27.0-33.4); MEAN CORPUSCULAR HGB CONC 34.7 g/dL (32.0-36.0); MEAN CORPUSCULAR VOLUME 99 fl (80-97); MONOCYTES % (AUTO) 8.8 % (3-13); PLATELET COUNT 154 10^3/uL (150-450); RED BLOOD COUNT 4.34 10^6/uL (3.72-5.28); RED CELL DISTRIBUTION WIDTH 13.9 % (11.5-14.0); SEGMENTED NEUTROPHILS % (AUTO) 67.9 % (42-78); TOTAL CELLS COUNTED % (AUTO) 100 %; WHITE BLOOD COUNT 6.2 10^3/uL (4.0-10.5)
[2020-05-08 01:36] LABS: INTERNATIONAL RATION (INR) 0.93; PROTHROMBIN TIME 12.7 SEC (11.4-15.4)
[2020-05-08 01:37] LABS: APPEARANCE,URINE SLIGHTLY-CLOUDY; BILIRUBIN,URINE NEGATIVE (NEGATIVE); COLOR,URINE YELLOW; GLUCOSE, URINE >=500 mg/dL (NEGATIVE); KETONES,URINE 80 mg/dL (NEGATIVE); LEUKOCYTE ESTERASE,URINE TRACE (NEGATIVE); NITRITE,URINE NEGATIVE (NEGATIVE); PARTIAL THROMBOPLASTIN TIME 26.1 SEC (23.5-35.8); PROTEIN,URINE 100 mg/dL (NEGATIVE); URINE SPECIFIC GRAVITY 1.029; UROBILINOGEN,URINE NEGATIVE mg/dL (<2.0)
[2020-05-08 01:44] LABS: ALBUMIN 5.3 g/dL (3.5-5.0); ALKALINE PHOSPHATASE 310 U/L (38-126); ASPARTATE AMINO TRANSFERASE 241 U/L (14-36); BILIRUBIN,DIRECT 0.6 mg/dL (0.0-0.4); BILIRUBIN,TOTAL 1.1 mg/dL (0.2-1.3); BLOOD UREA NITROGEN 10 mg/dL (7-20); CALCIUM 10.6 mg/dL (8.4-10.2); CARBON DIOXIDE 22 mmol/L (22-30); GLUCOSE 279 mg/dL (75-110); POTASSIUM 4.1 mmol/L (3.6-5.0); TOTAL PROTEIN 8.8 g/dL (6.3-8.2)
[2020-05-08 01:49] LABS: CHLORIDE 91 mmol/L (98-107)
[2020-05-08 01:50] LABS: ANION GAP 24 (5-19)
[2020-05-08] MEDS ORDERED: NORMAL SALINE 1000 ML 1,000 ML IV ONE (01:59)
--- NOTE | 2020-05-08 02:00 | RADIOLOGY REPORT (SQ) ---
EXAM DESCRIPTION: CT HEAD WITHOUT IV CONTRAST COMPLETED DATE/TME: 05/08/2020 01:35 CLINICAL HISTORY: 54 years, Female, confusion, ataxia COMPARISON: None. TECHNIQUE: Noncontrast axial, coronal, and sagittal images of the brain were obtained. Images stored on PACS. All CT scanners at this facility use dose modulation, iterative reconstruction, and/or weight based dosing when appropriate to reduce radiation dose to as low as reasonably achievable (ALARA). [facility]: Dose Right [facility]: CareDose [facility]: Dose Right [facility]: Teradose 4D [facility]: [employer] LIMITATIONS: None. FINDINGS: There is a small area of increased attenuation within the central elzbieta for instance on axial image 12 and coronal image 35. This measures approximately 3 x 6 mm in axial dimensions and 9 mm craniocaudal. There is no definite associated edema and there is no significant abnormal mass effect. Development venous anomaly or other vascular malformation is favored over hemorrhage, however more definitive evaluation with MRI is recommended. There is also a 6 mm chronic infarct vs. prominent cerebrovascular space in the region of the right basal ganglia on axial image 18. There is no major vascular territorial infarct. There is no midline shift. There is no hydrocephalus. The calvarium is intact. There is mild right maxillary sinus mucosal thickening. IMPRESSION: 1. Increased attenuation within the central elzbieta as described above. This is favored to represent a small vascular malformation or developmental venous anomaly as opposed to hemorrhage, however more definitive evaluation with MRI is recommended. 2. Small chronic right basal ganglia infarct vs. prominent cerebrovascular space. This could also be further characterized with MRI. 3. Mild right maxillary sinus mucosal thickening. Critical Finding Critical report results have been called to Arthur Merlos PA-C. Report called at 05/08/2020 12:58 AM [employer]. TECHNICAL DOCUMENTATION: Quality ID # 436: Final reports with documentation of one or more dose reduction techniques (e.g., Automated exposure control, adjustment of the mA and/or kV according to patient size, use of iterative reconstruction technique) copyright 2011 [employer]- All Rights Reserved
--- NOTE | 2020-05-08 02:18 | RADIOLOGY REPORT (SQ) ---
EXAM DESCRIPTION: XR CHEST 1 VIEW COMPLETED DATE/TME: 05/08/2020 01:39 CLINICAL HISTORY: weakness COMPARISON: 10/23/2019 FINDINGS: Single frontal radiograph view of the chest. Cardiomediastinal silhouette: Normal size and contour. Lungs: No consolidation, pneumothorax, or pleural effusion. Bones: No acute osseous abnormality. Upper abdomen: No abnormality identified. IMPRESSION: 1. No acute pulmonary process identified.
--- NOTE | 2020-05-08 09:30 | RADIOLOGY REPORT (SQ) ---
EXAM DESCRIPTION: MRI HEAD WITHOUT IMAGES COMPLETED DATE/TIME: 05/08/2020 9:15 am REASON FOR STUDY: eval abnormal CT COMPARISON: CT of the same date. TECHNIQUE: Multiplanar imaging includes non-contrasted T1, T2, FLAIR, and diffusion with ADC map seq uences. Images stored on PACS. LIMITATIONS: None. FINDINGS: ANATOMY: No anomalies. Normal vascular flow voids. Pituitary fossa normal. CSF SPACES: Normal in size and contour. No hemorrhage. CEREBRUM: Sulci and gyri normal in size and contour. Old lacunar infarct right basal ganglia. No ev idence of hemorrhage, mass, or extraaxial fluid collection. POSTERIOR FOSSA: No signal alteration. Finding on CT of the same date is due to beam hardening artif act from the temporal bones. No hemorrhage. No edema, masses or mass effect. Internal auditory meagan ls, cerebello-pontine angles, mastoids normal. DIFFUSION IMAGING: Negative for acute or sub-acute infarction. ORBITS: No masses. Globes normal. PARANASAL SINUSES: No fluid levels. Mucosa normal. OTHER: No other significant finding. IMPRESSION: No acute findings. EVIDENCE OF ACUTE STROKE: NO. TECHNICAL DOCUMENTATION: JOB ID: [id number] 2010 [employer]- All Rights Reserved Reading location - IP/workstation name: [email or web address]
[2020-05-08] MEDS ORDERED: ONDANSETRON 4 MG TAB.RAPDIS PO ONE (10:02)
[2020-05-08] MEDS ORDERED: THIAMINE HCL INJ 200 MG/2 ML VIAL IV ONE (10:59)
[2020-05-08] MEDS ORDERED: RINGERS SOLUTION,LACTATED 1,000 ML IV ONE ×3 (10:59→15:38)
--- NOTE | 2020-05-08 11:49 | ER Document Report ---
Entered by GILMA TRAORE SCRIBE 05/08/20 1044 Acting as scribe for:TAMANNA TAYLOR MD ED General - General Chief Complaint: Feet Swelling Stated Complaint: GENERAL WEAKNESS/NUMBNESS IN FEET Time Seen by Provider: 05/07/20 23:46 Primary Care Provider: ELAN CURRIE MD [Primary Care Provider] - Follow up as needed Information source: Patient Notes: This 54 year old female patient presents to the ED today with complaints of numbness to her feet and generalized weakness for the past couple of weeks. Patient has a history of hypertension, pancreatitis, type 2 diabetes mellitus, and alcohol abuse. Family at bedside reports that the patient has been compliant with her insulin and that she quit drinking x1 year ago. TRAVEL OUTSIDE OF THE [place] IN LAST 30 DAYS: No - Related Data Allergies/Adverse Reactions: metformin Allergy (Verified 04/17/20 16:22) Home Medications: see attached list Past Medical History - General Information source: Patient, Relative - Social History Smoking Status: Current Every Day Smoker Cigarette use (# per day): Yes - 0.5 ppd Chew tobacco use (# tins/day): No Smoking Education Provided: No Frequency of alcohol use: None - Patient has a history of ETOH abuse, but family states that she quit drinking x1 year ago Family History: Reviewed & Not Pertinent Patient has suicidal ideation: No Patient has homicidal ideation: No - Past Medical History Cardiac Medical History: Reports: Hx Hypertension Endocrine Medical History: Reports: Hx Diabetes Mellitus Type 2 GI Medical History: Reports: Hx Pancreatitis Skin Medical History: Reports Hx MRSA - upper arm Past Surgical History: Reports: Hx Section - x1, Hx Cholecystectomy - Immunizations Hx Diphtheria, Pertussis, Tetanus Vaccination: No Review of Systems - Review of Systems Constitutional: See HPI, Weakness EENT: No symptoms reported Cardiovascular: No symptoms reported Respiratory: No symptoms reported Gastrointestinal: No symptoms reported Genitourinary: No symptoms reported Female Genitourinary: No symptoms reported Musculoskeletal: No symptoms reported Skin: No symptoms reported Hematologic/Lymphatic: No symptoms reported Neurological/Psychological: See HPI, Numbness -: Yes All other systems reviewed and negative Physical Exam - Vital signs Vitals: Temp Pulse Resp BP Pulse Ox 98.8 F 110 H 19 116/68 95 05/07/20 22:33 05/07/20 22:33 05/07/20 22:33 05/07/20 22:33 05/07/20 22:33 - General General appearance: Alert, Other - Appears cachectic, stong ketone odor on breath In distress: None - HEENT Head: Normocephalic, Atraumatic Eyes: Normal Pupils: PERRL - Respiratory Respiratory status: No respiratory distress Chest status: Nontender Breath sounds: Normal Chest palpation: Normal - Cardiovascular Rhythm: Regular Heart sounds: Normal auscultation Murmur: No - Abdominal Inspection: Normal Distension: No distension Bowel sounds: Normal Tenderness: Nontender - Abdomen soft Organomegaly: No organomegaly - Back Back: Normal, Nontender - Extremities General upper extremity: Normal inspection General lower extremity: Normal inspection. No: Edema - Neurological Neuro grossly intact: Yes Sensory: Normal - Patient complains of numbness/decreased sensation in her toes; however, she jumps back stating that she is "ticklish" when I exam them - Psychological Associated symptoms: Normal affect, Normal mood - Skin Skin Temperature: Warm Skin Moisture: Dry Skin Color: Normal Course - Re-evaluation Re-evalutation: 05/08/20 15:41 The patient states she is feeling much better after the IV fluids. Her initial lab work just after midnight today showed a urine specific gravity 1.029 with 80 ketones and greater than 500 glucose. Her blood sugar was 279 and a hemoglobin A1c was 10.0 And venous blood gas done this afternoon showed a pH of 7.44, and a PCO2 of 24.3 showing the patient is hyperventilating more than what would be necessary to correct her pH from what appears to be a diabetic ketoacidosis. 05/08/20 19:15 Patient has now had 3 L of IV fluids. She is feeling much better and is anxious to go home. She is advised to continue to drink plenty of fluids, to check her sugars at least 3 times a day, to not miss her insulin dosing, to include taking her Lantus that she missed earlier today. She is to follow-up with her primary care provider tomorrow for recheck and to review all the lab work from today. - Vital Signs Vital signs: Temp Pulse Resp BP Pulse Ox 98.6 F 94 16 133/74 H 100 05/08/20 16:56 05/08/20 16:56 05/08/20 16:56 05/08/20 16:56 05/08/20 16:56 - Laboratory Result Diagrams: 05/08/20 01:14 05/08/20 01:14 Laboratory results interpreted by me: 05/08/20 05/08/20 05/08/20 01:14 01:14 01:14 MCV 99 H MCH 34.2 H Carbonic Acid ABG pH ABG pCO2 VBG pH VBG pCO2 VBG HCO3 Sodium 136.8 L Chloride 91 L Anion Gap 24 H Creatinine 0.31 L Glucose 279 H POC Glucose Hemoglobin A1c % Calcium 10.6 H Direct Bilirubin 0.6 H AST 241 H ALT 203 H Alkaline Phosphatase 310 H Total Protein 8.8 H Albumin 5.3 H Urine Protein 100 H Urine Glucose (UA) >=500 H Urine Ketones 80 H Urine Blood SMALL H Ur Leukocyte Esterase TRACE H 05/08/20 05/08/20 05/08/20 01:14 12:00 14:00 MCV MCH Carbonic Acid ABG pH ABG pCO2 VBG pH 7.44 H VBG pCO2 24.3 L VBG HCO3 16.0 L Sodium Chloride Anion Gap Creatinine Glucose POC Glucose 314 H Hemoglobin A1c % 10.0 H Calcium Direct Bilirubin AST ALT Alkaline Phosphatase Total Protein Albumin Urine Protein Urine Glucose (UA) Urine Ketones Urine Blood Ur Leukocyte Esterase 05/08/20 05/08/20 15:55 16:53 MCV MCH Carbonic Acid 0.86 L ABG pH 7.48 H ABG pCO2 28.5 L VBG pH VBG pCO2 VBG HCO3 Sodium Chloride Anion Gap Creatinine Glucose POC Glucose 265 H Hemoglobin A1c % Calcium Direct Bilirubin AST ALT Alkaline Phosphatase Total Protein Albumin Urine Protein Urine Glucose (UA) Urine Ketones Urine Blood Ur Leukocyte Esterase - Diagnostic Test Radiology reviewed: Image reviewed, Reports reviewed - Chest x-ray is unremarkable. CT scan of the head shows right maxillary sinus mucosal thi ckening, some basal ganglia abnormalities evaluated with MRI. MRI shows no acute process. There is an old right basal ganglia lacunar infarct. - EKG Interpretation by Me EKG shows normal: Sinus rhythm, [place], Intervals, QRS Complexes, ST-T Waves Rate: Tachycardia - 109 P Waves: LAE When compared to previous EKG there are: No significant change Discharge - Discharge Clinical Impression: Poorly controlled type 2 diabetes mellitus, Elevated liver function tests, Weakness Diabetic ketoacidosis associated with type 2 diabetes mellitus Qualifiers: Diabetes mellitus complication detail: without coma Qualified Code(s): E11.10 - Type 2 diabetes mellitus with ketoacidosis without coma Condition: Stable Disposition: HOME, SELF-CARE Additional Instructions: Your evaluation today did not show a definite cause for the weakness you have been feeling. We did find that your blood sugars have been poorly controlled over the last several months, and today you were in a mild diabetic ketoacidosis. You were given 3 L of fluids and insulin for your dehydration and elevated blood sugars. We also found that you have a recent increase in your liver function tests. Th is has occurred in the past, and the liver enzymes went back to normal. Be sure to drink plenty of fluids today and do not skip any meals. Take your insulin when you get home, and check your sugars in the evening and at bedtime. Follow-up with your primary care provider tomorrow to review your visit today and discuss adjusting your insulin dosing. You should also discuss your recent episodes of weakness and sensory changes in your feet. RETURN TO THE EMERGENCY ROOM IF ANY NEW OR WORSENING SYMPTOMS. Referrals: ELAN CURRIE MD [Primary Care Provider] - Follow up tomorrow I personally performed the services described in the documentation, reviewed and edited the documentation which was dictated to the scribe in my presence, and it accurately records my words and actions.
[2020-05-08] MEDS ORDERED: INSULIN REG, HUMAN 100 UNIT/ML 3 ML VIAL (PYX) IV ONE ×2 (12:03→17:21)
[2020-05-08 14:15] LABS: VENOUS BLOOD BASE EXCESS -6.4 mmol/L; VENOUS BLOOD PCO2 24.3 mmHg (35-63); VENOUS BLOOD PH 7.44 (7.30-7.42)
[2020-05-08 16:06] LABS: ARTERIAL BLOOD BASE EXCESS -1.8 mmol/L; ARTERIAL BLOOD H2CO3 0.86 mmol/L (1.05-1.35); ARTERIAL BLOOD HCO3 20.6 mmol/L (20-24); ARTERIAL BLOOD O2 SATURATION 97.9 % (94-98); ARTERIAL BLOOD PCO2 28.5 mmHg (35-45); ARTERIAL BLOOD PH 7.48 (7.35-7.45); ARTERIAL BLOOD PO2 97.2 mmHg (80-100); ARTERIAL BLOOD TOTAL CO2 21.5 mmol/L (21-25)
[2020-05-08 16:13] LABS: ARTERIAL BLOOD FIO2 ROOM AIR
[2020-05-08 16:38] LABS: URINE AMPHETAMINES SCREEN NEGATIVE; URINE BARBITURATES SCREEN NEGATIVE; URINE BENZODIAZEPINES SCREEN NEGATIVE; URINE COCAINE SCREEN NEGATIVE; URINE MARIJUANA (THC) SCREEN NEGATIVE; URINE METHADONE SCREEN NEGATIVE; URINE PHENCYCLIDINE SCREEN NEGATIVE
[2020-05-08 19:52] VITALS: BP 133/78
--- NOTE | 2020-05-09 00:29 | EKG REPORT ---
SEVERITY:- BORDERLINE ECG - SINUS TACHYCARDIA PROBABLE LEFT ATRIAL ABNORMALITY : Confirmed by: Jarad Moncada 09-May-2020 00:28:51
--- OUTSIDE RECORDS SUMMARY | 2020-05-09 15:14 | XMS REPORT ---
:1965 Author Organization [facility] Address [facility] [address] [place] [address] Care Team Providers Name Role Phone Neo Attending Clinician Unavailable [facility], [place] Attending Clinician Unavailable Nikolas KAUR Attending Clinician Unavailable Ermias CUMMINGS Attending Clinician Unavailable Allergies, Adverse Reactions, Alerts Allergy Allergy Status Severity Reaction(s) Onset Inactive Treating C omments Name Type Date Date Clinician METFORMIN Drug Active Unknown <Not 2020-0 HCL allergy Supplied> 3-25 (Unknown) 00:00: 00 METFORMIN Drug Inactive Unknown 2019- HCL allergy 6-07 00:00: 00 Medications This patient has no known medications. Problems This patient has no known problems. Procedures Procedure Date / Time Performed Performing Clinician Devic e OFFICE/OUTPATIENT VISIT EST 2020-04-24 16:15:00 OFFICE/OUTPATIENT VISIT EST 2020-04-03 15:00:00 OFFICE/OUTPATIENT VISIT EST 2020-02-13 10:45:00 DSCHRG MED/CURRENT MED MERGE 2020-01-04 10:15:00 OFFICE/OUTPATIENT VISIT EST 2020-01-04 10:15:00 OFFICE/OUTPATIENT VISIT EST 2019-10-22 13:00:00 DSCHRG MED/CURRENT MED MERGE 2019-10-22 13:00:00 OFFICE/OUTPATIENT VISIT EST 2019-08-07 15:45:00 BEHAV CHNG SMOKING 3-10 MIN 2018-12-01 10:30:00 OFFICE/OUTPATIENT VISIT NEW 2018-12-01 10:30:00 Results Test Description Test Time Test Comments Text Results Atomic Results Result Comments BASIC METABOLIC PANEL 2020-04-25 00:00:00 Test Item Value Reference Range Comments CREATININE (test code = 20508252) 0.44 mg/dL 0.50-1.05 CALCIUM (test code = 73604133) 10.1 mg/dL 8.6-10.4 CARBON DIOXIDE (test code = 92134064) 24 mmol/L 20-32 POTASSIUM (test code = 64885112) 3.9 mmol/L 3.5-5.3 SODIUM (test code = 43662180) 133 mmol/L 135-146 GLUCOSE (test code = 32597732) 265 mg/dL 65-99 UREA NITROGEN (BUN) (test code = 53249536) 11 mg/dL 7-25 eGFR NON-AFR. ITALIAN (test code = 62206681) 114 mL/min/1.73m2 > OR = 60 BUN/CREATININE RATIO (test code = 50196042) 25 (calc) 6-22 CHLORIDE (test code = 07490369) 92 mmol/L 98-110 eGFR (test code = 02228835) 133 mL/min/1.73m2 > OR = 60 [id number] 00:00:[id number] 00:00:[id number] 00:00:00 53SED RATE BY MODIFIED [id number] 00:00:0055HEMOGLOBIN A1c WITH eAG 2020-04-15 00:00:00 Test Item Value Reference Range Comments eAG (mg/dL) (test code = 28288923) 283 (calc) HEMOGLOBIN A1c (test code = 4548-4) 11.5 % of total Hgb <5.7 eAG (mmol/L) (test code = 57701930) 15.7 (calc) CREATINE KINASE, [id number] 00:00:0015CBC (H/H, RBC, INDICES, WBC, PLT) 2020-04-15 00:00:00 Test Item Value Reference Range Comments PLATELET COUNT (test code = 99894292) 179 Thousand/uL 140-400 MPV (test code = 81238857) 12.0 fL 7.5-12.5 RED BLOOD CELL COUNT (test code = 87352739) 3.99 Million/uL 3.80 -5.10 MCHC (test code = 66995314) 33.7 g/dL 32.0-36.0 HEMATOCRIT (test code = 70507415) 40.3 % 35.0-45.0 MCH (test code = 11369406) 34.1 pg 27.0-33.0 RDW (test code = 86469709) 11.7 % 11.0-15.0 WHITE BLOOD CELL COUNT (test code = 13.5 Thousand/uL 3.8-10.8 97001649) HEMOGLOBIN (test code = 37882544) 13.6 g/dL 11.7-15.5 MCV (test code = 99572114) 101.0 fL 80.0-100.0 COMPREHENSIVE METABOLIC [id number] 00:00:00 Test Item Value Reference Range Comments CARBON DIOXIDE (test code = 73121926) 19 mmol/L 20-32 eGFR (test code = 119 mL/min/1.73m2 > OR = 60 55869539) eGFR NON-AFR. ITALIAN (test code = 103 mL/min/1.73m2 > OR = 60 09215282) ALBUMIN/GLOBULIN RATIO (test code = 1.3 (calc) 1.0-2.5 65711616) UREA NITROGEN (BUN) (test code = 17 mg/dL 7-25 75679202) BUN/CREATININE RATIO (test code = NOT APPLICABLE (calc) 6-22 93500292) PROTEIN, TOTAL (test code = 51404466) 8.1 g/dL 6.1-8.1 CALCIUM (test code = 78168404) 10.9 mg/dL 8.6-10.4 GLOBULIN (test code = 71086066) 3.6 g/dL (calc) 1.9-3.7 BILIRUBIN, TOTAL (test code = 0.8 mg/dL 0.2-1.2 63019207) SODIUM (test code = 11744463) 128 mmol/L 135-146 POTASSIUM (test code = 35451253) 4.5 mmol/L 3.5-5.3 CREATININE (test code = 28998204) 0.61 mg/dL 0.50-1.05 GLUCOSE (test code = 34502442) 497 mg/dL 65-99 ALBUMIN (test code = 29195992) 4.5 g/dL 3.6-5.1 ALKALINE PHOSPHATASE (test code = 349 U/L 37-153 08021048) CHLORIDE (test code = 21619931) 90 mmol/L 98-110 ALT (test code = 33237570) 86 U/L 6-29 AST (test code = 90673595) 86 U/L 10-35 AMMONIA (P)2020-04-15 00:00:94103F-EZKPCIGH [id number] 11:23:0045.345.3 [id number] 11:23:[id number] 11:23:367234SUAOFTQ (P) 2020-02-13 11:23:[id number] 11:23:76735332RVMWEZALDOWKB METABOLIC [id number] 11:23:00 Test Item Value Reference Range Comments BUN/CREATININE RATIO (test code = 13 (calc) 6-22 40224061) CHLORIDE (test code = 47654633) 89 mmol/L 98-110 ALKALINE PHOSPHATASE (test code = 246 U/L 37-153 42360822) CARBON DIOXIDE (test code = 07005494) 28 mmol/L 20-32 ALBUMIN/GLOBULIN RATIO (test code = 1.3 (calc) 1.0-2.5 79129758) CALCIUM (test code = 91026625) 8.9 mg/dL 8.6-10.4 BILIRUBIN, TOTAL (test code = 18791619) 5.3 mg/dL 0.2-1.2 ALBUMIN (test code = 83004574) 3.6 g/dL 3.6-5.1 GLOBULIN (test code = 12628192) 2.7 g/dL (calc) 1.9-3.7 UREA NITROGEN (BUN) (test code = 6 mg/dL 7-25 95883844) eGFR NON-AFR. ITALIAN (test code = 290283 mL/min/1.73m2 > OR = 60 76799676) eGFR (test code = 130 mL/min/1.73m2 > OR = 60 57811839) SODIUM (test code = 48819839) 133 mmol/L 135-146 CREATININE (test code = 84714862) 0.47 mg/dL 0.50-1.05 AST (test code = 46481368) 173 U/L 10-35 PROTEIN, TOTAL (test code = 09681125) 6.3 g/dL 6.1-8.1 ALT (test code = 22095246) 77 U/L 6-29 POTASSIUM (test code = 53082417) 2.9 mmol/L 3.5-5.3 GLUCOSE (test code = 74887112) 408 mg/dL 65-139 SED RATE BY MODIFIED [id number] 11:18:0011C-REACTIVE [id number] 11:18:[id number] 11:18:0052CBC (INCLUDES DIFF/PLT)2020-01-04 11:18:00 Test Item Value Reference Range Comments WHITE BLOOD CELL COUNT (test code = 6.7 Thousand/uL 3.8-10.8 95547417) MONOCYTES (test code = 46783032) 8.5 % ABSOLUTE EOSINOPHILS (test code = 11802561) 47 cells/uL 15-5 00 RDW (test code = 07423648) 13.4 % 11.0-15.0 ABSOLUTE NEUTROPHILS (test code = 08877342) 4335 cells/uL 1500 -7800 NEUTROPHILS (test code = 01431241) 64.7 % MCHC (test code = 05326375) 33.7 g/dL 32.0-36.0 LYMPHOCYTES (test code = 35584197) 25.1 % MPV (test code = 06265295) 12.8 fL 7.5-12.5 ABSOLUTE MONOCYTES (test code = 64412214) 570 cells/uL 200-95 0 RED BLOOD CELL COUNT (test code = 58405423) 4.55 Million/uL 3.80 -5.10 MCV (test code = 21540228) 95.8 fL 80.0-100.0 HEMOGLOBIN (test code = 75884883) 14.7 g/dL 11.7-15.5 MCH (test code = 82268869) 32.3 pg 27.0-33.0 BASOPHILS (test code = 84499859) 1.0 % EOSINOPHILS (test code = 43763270) 0.7 % ABSOLUTE BASOPHILS (test code = 28515108) 67 cells/uL 0-200 ABSOLUTE LYMPHOCYTES (test code = 72256378) 1682 cells/uL 850- 3900 HEMATOCRIT (test code = 04716381) 43.6 % 35.0-45.0 PLATELET COUNT (test code = 86524573) 157 Thousand/uL 140-400 T4 (THYROXINE), [id number] 11:18:005.7T3, [id number] 11:18:003.1 COMPREHENSIVE METABOLIC [id number] 11:18:00 Test Item Value Reference Range Comments CALCIUM (test code = 75823004) 10.2 mg/dL 8.6-10.4 ALT (test code = 78157451) 153 U/L 6-29 eGFR (test code = 133 mL/min/1.73m2 > OR = 60 85933429) SODIUM (test code = 59350302) 133 mmol/L 135-146 GLOBULIN (test code = 48777292) 3.0 g/dL (calc) 1.9-3.7 ALKALINE PHOSPHATASE (test code = 174 U/L 37-153 15981005) eGFR NON-AFR. ITALIAN (test code = 114 mL/min/1.73m2 > OR = 60 04916074) GLUCOSE (test code = 30684064) 359 mg/dL 65-139 ALBUMIN (test code = 44973470) 4.4 g/dL 3.6-5.1 PROTEIN, TOTAL (test code = 69392704) 7.4 g/dL 6.1-8.1 CHLORIDE (test code = 63646721) 89 mmol/L 98-110 POTASSIUM (test code = 10919179) 3.3 mmol/L 3.5-5.3 ALBUMIN/GLOBULIN RATIO (test code = 1.5 (calc) 1.0-2.5 47477288) AST (test code = 77179878) 211 U/L 10-35 CARBON DIOXIDE (test code = 73681895) 30 mmol/L 20-32 BILIRUBIN, TOTAL (test code = 79170930) 1.7 mg/dL 0.2-1.2 BUN/CREATININE RATIO (test code = 11 (calc) 6-22 21234807) UREA NITROGEN (BUN) (test code = 97596841) 5 mg/dL 7-25 CREATININE (test code = 92734117) 0.44 mg/dL 0.50-1.05 [id number] 11:18:325707WTGAPKP, URINE, [id number] 11:18:00SEE NOTETSH 2020-01-04 11:18:001.94HEMOGLOBIN A1c WITH [id number] 11:18:00 Test Item Value Reference Range Comments eAG (mg/dL) (test code = 07832357) 252 (calc) eAG (mmol/L) (test code = 60346352) 13.9 (calc) HEMOGLOBIN A1c (test code = 4548-4) 10.4 % of total Hgb <5.7 B TYPE NATRIURETIC PEPTIDE (BNP)2020-01-04 11:18:[id number] 11:18:00 104T3, [id number] 11:18:0085T4, [id number] 11:18:001.2CULTURE, URINE, [id number] 15:17:00SEE [id number] 13:55:[id number] 13:55:94493G TYPE NATRIURETIC PEPTIDE (BNP)2019-10-22 13:55:0071CBC (INCLUDES DIFF/PLT)2019-10-22 13:55:00 Test Item Value Reference Range Comments EOSINOPHILS (test code = 76200005) 0.2 % MPV (test code = 98504571) 13.8 fL 7.5-12.5 ABSOLUTE NEUTROPHILS (test code = 30010985) 29701 cells/uL 1500 -7800 ABSOLUTE MONOCYTES (test code = 38914985) 815 cells/uL 200-95 0 MCV (test code = 57911411) 100.4 fL 80.0-100.0 WHITE BLOOD CELL COUNT (test code = 16.3 Thousand/uL 3.8-10.8 49664776) HEMATOCRIT (test code = 85783703) 26.8 % 35.0-45.0 BASOPHILS (test code = 81818228) 0.4 % HEMOGLOBIN (test code = 53855079) 9.0 g/dL 11.7-15.5 MCH (test code = 49044557) 33.7 pg 27.0-33.0 PLATELET COUNT (test code = 38923895) 229 Thousand/uL 140-400 ABSOLUTE EOSINOPHILS (test code = 73257842) 33 cells/uL 15-5 00 MCHC (test code = 95091451) 33.6 g/dL 32.0-36.0 ABSOLUTE BASOPHILS (test code = 46152984) 65 cells/uL 0-200 RED BLOOD CELL COUNT (test code = 33432529) 2.67 Million/uL 3.80 -5.10 NEUTROPHILS (test code = 07682628) 87.1 % MONOCYTES (test code = 13824419) 5.0 % LYMPHOCYTES (test code = 46258842) 7.3 % RDW (test code = 97892653) 12.9 % 11.0-15.0 ABSOLUTE LYMPHOCYTES (test code = 83187811) 1190 cells/uL 850- 3900 [id number] 13:55:0028COMPREHENSIVE METABOLIC [id number] 13:55:00 Test Item Value Reference Range Comments CARBON DIOXIDE (test code = 08957737) 24 mmol/L 20-32 CALCIUM (test code = 30682391) 8.3 mg/dL 8.6-10.4 BUN/CREATININE RATIO (test code = 17 (calc) 6-22 34012764) PROTEIN, TOTAL (test code = 01633954) 6.1 g/dL 6.1-8.1 eGFR (test code = 143 mL/min/1.73m2 > OR = 60 59070296) ALBUMIN (test code = 13724704) 3.0 g/dL 3.6-5.1 BILIRUBIN, TOTAL (test code = 66642656) 2.1 mg/dL 0.2-1.2 ALBUMIN/GLOBULIN RATIO (test code = 1.0 (calc) 1.0-2.5 55839472) GLOBULIN (test code = 09661431) 3.1 g/dL (calc) 1.9-3.7 SODIUM (test code = 61819684) 131 mmol/L 135-146 ALKALINE PHOSPHATASE (test code = 149 U/L 37-153 23048917) GLUCOSE (test code = 95837233) 329 mg/dL 65-99 UREA NITROGEN (BUN) (test code = 57881407) 6 mg/dL 7-25 POTASSIUM (test code = 19919152) 3.7 mmol/L 3.5-5.3 CHLORIDE (test code = 51282074) 96 mmol/L 98-110 eGFR NON-AFR. ITALIAN (test code = 123 mL/min/1.73m2 > OR = 60 92101690) ALT (test code = 29175446) 10 U/L 6-29 CREATININE (test code = 89781230) 0.36 mg/dL 0.50-1.05 AST (test code = 90310962) 17 U/L 10-35 [id number] 13:55:001.47C-REACTIVE [id number] 13:55:12045.0SED RATE BY MODIFIED [id number] 13:55:0070HEMOGLOBIN A1c WITH [id number] 13:55:00 Test Item Value Reference Range Comments eAG (mmol/L) (test code = 38602348) 10.3 (calc) eAG (mg/dL) (test code = 22645103) 186 (calc) HEMOGLOBIN A1c (test code = 4548-4) 8.1 % of total Hgb <5.7 COMPREHENSIVE METABOLIC [id number] 16:23:00 Test Item Value Reference Range Comments GLUCOSE (test code = 99679258) 381 mg/dL 65-139 AST (test code = 13331400) 39 U/L 10-35 UREA NITROGEN (BUN) (test code = 8 mg/dL 7-25 98578911) POTASSIUM (test code = 53634801) 3.9 mmol/L 3.5-5.3 CALCIUM (test code = 85113812) 9.8 mg/dL 8.6-10.4 CARBON DIOXIDE (test code = 59967830) 24 mmol/L 20-32 eGFR (test code = 123 mL/min/1.73m2 > OR = 60 93820941) SODIUM (test code = 50290986) 134 mmol/L 135-146 CHLORIDE (test code = 47945600) 96 mmol/L 98-110 GLOBULIN (test code = 81375740) 3.0 g/dL (calc) 1.9-3.7 ALKALINE PHOSPHATASE (test code = 117 U/L 37-153 60821580) CREATININE (test code = 75397748) 0.56 mg/dL 0.50-1.05 BILIRUBIN, TOTAL (test code = 0.6 mg/dL 0.2-1.2 16655778) ALT (test code = 69630909) 47 U/L 6-29 ALBUMIN/GLOBULIN RATIO (test code = 1.3 (calc) 1.0-2.5 35231088) PROTEIN, TOTAL (test code = 29750190) 6.8 g/dL 6.1-8.1 eGFR NON-AFR. ITALIAN (test code = 106 mL/min/1.73m2 > OR = 60 09324947) BUN/CREATININE RATIO (test code = NOT APPLICABLE (calc) 6-22 21460210) ALBUMIN (test code = 65654887) 3.8 g/dL 3.6-5.1 [id number] 16:23:[id number] 16:23:[id number] 16:23:00 325Hemoglobin A1C\S\2019-08-07 15:45:00 Test Item Value Reference Range Comments HgbA1C, Fingerstick (test code = 4548-4) 8.9 % 4-5.6 CBC (INCLUDES DIFF/PLT)2019-07-02 09:43:00 Test Item Value Reference Range Comments ABSOLUTE MONOCYTES (test code = 18551414) 748 cells/uL 200-95 0 ABSOLUTE NEUTROPHILS (test code = 05330230) 6214 cells/uL 1500 -7800 NEUTROPHILS (test code = 86958488) 73.1 % EOSINOPHILS (test code = 13177592) 1.8 % MONOCYTES (test code = 43558729) 8.8 % RDW (test code = 16358994) 12.9 % 11.0-15.0 MPV (test code = 96371358) 12.8 fL 7.5-12.5 ABSOLUTE BASOPHILS (test code = 00662857) 68 cells/uL 0-200 BASOPHILS (test code = 83718483) 0.8 % ABSOLUTE EOSINOPHILS (test code = 87848511) 153 cells/uL 15-5 00 MCV (test code = 82606518) 102.8 fL 80.0-100.0 MCH (test code = 34356547) 36.6 pg 27.0-33.0 HEMOGLOBIN (test code = 48061994) 15.6 g/dL 11.7-15.5 LYMPHOCYTES (test code = 05646025) 15.5 % HEMATOCRIT (test code = 05735251) 43.8 % 35.0-45.0 RED BLOOD CELL COUNT (test code = 15097489) 4.26 Million/uL 3.80 -5.10 WHITE BLOOD CELL COUNT (test code = 8.5 Thousand/uL 3.8-10.8 45026557) ABSOLUTE LYMPHOCYTES (test code = 24693914) 1318 cells/uL 850- 3900 MCHC (test code = 15577415) 35.6 g/dL 32.0-36.0 PLATELET COUNT (test code = 80045105) 238 Thousand/uL 140-400 [id number] 09:43:7226KWXRWG3643-08-04 09:43:27802CAIBDKZYBWNAT METABOLIC [id number] 09:43:00 Test Item Value Reference Range Comments SODIUM (test code = 66568782) 138 mmol/L 135-146 CARBON DIOXIDE (test code = 55929007) 29 mmol/L 20-32 GLUCOSE (test code = 59136653) 329 mg/dL 65-99 ALT (test code = 65597322) 116 U/L 6-29 CALCIUM (test code = 67651118) 10.5 mg/dL 8.6-10.4 ALBUMIN/GLOBULIN RATIO (test code = 1.7 (calc) 1.0-2.5 36529012) ALBUMIN (test code = 10892109) 4.0 g/dL 3.6-5.1 POTASSIUM (test code = 60291231) 3.6 mmol/L 3.5-5.3 CHLORIDE (test code = 36788386) 100 mmol/L 98-110 ALKALINE PHOSPHATASE (test code = 93 U/L 33-130 50737808) eGFR (test code = 134 mL/min/1.73m2 > OR = 60 11389325) eGFR NON-AFR. ITALIAN (test code = 115 mL/min/1.73m2 > OR = 60 80582780) BUN/CREATININE RATIO (test code = 16 (calc) 6-22 64517865) CREATININE (test code = 50805435) 0.44 mg/dL 0.50-1.05 PROTEIN, TOTAL (test code = 33679546) 6.4 g/dL 6.1-8.1 UREA NITROGEN (BUN) (test code = 51702924) 7 mg/dL 7-25 BILIRUBIN, TOTAL (test code = 35385486) 0.6 mg/dL 0.2-1.2 GLOBULIN (test code = 57992543) 2.4 g/dL (calc) 1.9-3.7 AST (test code = 66481491) 124 U/L 10-35 T3, [id number] 11:37:003.8T4, [id number] 11:37:001.2LIPID PANEL, [id number] 11:37:00 Test Item Value Reference Range Comments NON HDL CHOLESTEROL (test code = 28713925) 119 mg/dL (calc) <130 HDL CHOLESTEROL (test code = 06445022) 32 mg/dL >50 TRIGLYCERIDES (test code = 37569974) 285 mg/dL <150 CHOLESTEROL, TOTAL (test code = 33038268) 151 mg/dL <200 LDL-CHOLESTEROL (test code = 62417093) 82 mg/dL (calc) CHOL/HDLC RATIO (test code = 34629005) 4.7 (calc) <5.0 VITAMIN D,25-OH,TOTAL,[id number] 11:37:0027MICROALBUMIN, RANDOM URINE (W/CREATININE)2018-12-01 11:37:00 Test Item Value Reference Range Comments MICROALBUMIN/CREATININE RATIO, RANDOM URINE 12 mcg/mg creat <30 (test code = 88929299) MICROALBUMIN (test code = 02155961) 0.7 mg/dL CREATININE, RANDOM URINE (test code = 59 mg/dL 20-275 54294604) T4 (THYROXINE), [id number] 11:37:006.9T3, [id number] 11:37:68193 COMPREHENSIVE METABOLIC [id number] 11:37:00 Test Item Value Reference Range Comments PROTEIN, TOTAL (test code = 24497120) 6.8 g/dL 6.1-8.1 BILIRUBIN, TOTAL (test code = 16319008) 0.6 mg/dL 0.2-1.2 GLOBULIN (test code = 42728881) 2.8 g/dL (calc) 1.9-3.7 CALCIUM (test code = 65662778) 9.1 mg/dL 8.6-10.4 ALT (test code = 19913960) 40 U/L 6-29 ALBUMIN/GLOBULIN RATIO (test code = 1.4 (calc) 1.0-2.5 29145161) ALKALINE PHOSPHATASE (test code = 85 U/L 33-130 84265798) ALBUMIN (test code = 68047304) 4.0 g/dL 3.6-5.1 GLUCOSE (test code = 35771662) 332 mg/dL 65-139 eGFR NON-AFR. ITALIAN (test code = 105 mL/min/1.73m2 > OR = 60 71746832) SODIUM (test code = 60453496) 139 mmol/L 135-146 CARBON DIOXIDE (test code = 42487292) 23 mmol/L 20-32 POTASSIUM (test code = 65039352) 3.6 mmol/L 3.5-5.3 eGFR (test code = 121 mL/min/1.73m2 > OR = 60 45404292) CREATININE (test code = 63897531) 0.60 mg/dL 0.50-1.05 BUN/CREATININE RATIO (test code = 5 (calc) 6-22 98804263) CHLORIDE (test code = 93138236) 103 mmol/L 98-110 AST (test code = 00592370) 55 U/L 10-35 UREA NITROGEN (BUN) (test code = 53845862) 3 mg/dL 7- [id number] 11:37:001.21CBC (H/H, RBC, INDICES, WBC, PLT)2018-12-01 11:37:00 Test Item Value Reference Range Comments HEMATOCRIT (test code = 76849447) 51.9 % 35.0-45.0 PLATELET COUNT (test code = 50504712) 176 Thousand/uL 140-400 MPV (test code = 50962201) 12.8 fL 7.5-12.5 MCV (test code = 84459811) 100.8 fL 80.0-100.0 MCHC (test code = 68959369) 35.5 g/dL 32.0-36.0 RDW (test code = 17805315) 12.4 % 11.0-15.0 MCH (test code = 56042521) 35.7 pg 27.0-33.0 WHITE BLOOD CELL COUNT (test code = 6.3 Thousand/uL 3.8-10.8 88001705) HEMOGLOBIN (test code = 35852620) 18.4 g/dL 11.7-15.5 RED BLOOD CELL COUNT (test code = 51466194) 5.15 Million/uL 3.80 -5.10 Hemoglobin A1C\S\2018-12-01 10:30:00 Test Item Value Reference Range Comments HgbA1C, Fingerstick (test code = 4548-4) 9.7 % 4-5.6 [id number] 10:50:[address] [address] Patient: CHELSEA SOLIS : 1965 Sex: F Address: [address] [place] [address] PA[place]A SWARTZ [address] Unit #: [id number] REQ SEQ #: [id number] Location: [facility] [place] [facility] [place] Room #: Ordering: RICCARDO KAUR II, MD Diagnosis: RT BR DENSITY Last mammogram was performed less than 1 monthago. Reason for exam: addl carlos requested from prior study. Full Field Digital Mammogram. [facility] SINGLE VIEW RIGHT DIGITAL: June 07, 2017 Spot compression CC, spot compression MLO, and ML view(s) were taken of the right breast. Prior study comparison: May 26, 2017, [facility] mammo SCRN bilat digital W CAD performed at [facility]. The breasttissue is comprised of scattered fibroglandular densities. Finding: Intramammary lymph node Later ality: right, at 12 o'clock Depth: anterior Changes: more defined. [facility] Right Breast Ultrasound: June 07, 2017 Standard views. Finding: Intramammary lymph nodes Laterality: right, at 12 o'clock Depth: anterior Changes: more defined. BI-RADS: Benign (BIRADS 2) (Overall) Right breast SINGLE RT: Benign (BIRADS 2) finding. Recommendation: Mammogram in 1 year. Signed by: RICCARDO KAUR II, MD 06/07/17 1041 cc: RICCARDO KAUR II, [id number] 10:50:[address] [address] Patient: CHELSEA SOLIS : 1965 Sex: F Address: [address] [place] [address] [place] [address] Unit #: [id number] SEQ #: [id number] Location[place] [facility] [place] [facility] [place] Room #: Ordering: RICCARDO KAUR II, MD Diagnosis: RT BR DENSITY Last mammogram was performed less than 1 monthago. Reason for exam: addl eval requested from prior study. Full Field Digital Mammogram. [facility] SINGLE VIEW RIGHT DIGITAL: June 07, 2017 Spot compression CC, spot compression MLO, and ML view(s) were taken of the right breast. Prior study comparison: May 26, 2017, [facility] mammo SCRN bilat digital W CAD performed at [facility]. The breasttissue is comprised of scattered fibroglandular densities. Finding: Intramammary lymph node Later ality: right, at 12 o'clock Depth: anterior Changes: more defined. [facility] Right Breast Ultrasound: June 07, 2017 Standard views. Finding: Intramammary lymph nodes Laterality: right, at 12 o'clock Depth: anterior Changes: more defined. BI-RADS: Benign (BIRADS 2) (Overall) Right breast SINGLE RT: Benign (BIRADS 2) finding. Recommendation: Mammogram in 1 year. Signed by: RICCARDO KAUR II, MD 06/07/17 1049 cc: RICCARDO KAUR II [id number] 17:47:[address] [address] Patient: CHELSEA SOLIS : 1965 Sex: F Address: [facility] [address] [place] [address] Unit #: [id number] REQ SEQ #: [id number] Location: [facility] [place] Room #: Ordering: EVERETT PEREZ Diagnosis: SCREENING MAMMO Procedure Report Patient History: Patient is postmenopausal. Baseline mammogram. Reason for exam: screening, asymptomatic. Full Field Digital Mammogram. [facility] Mammo SCRN Bilat Digital W CAD: May 26, 2017 Bilateral CC and MLO view(s) were taken. The breast tissue is comprised of scattered fibroglandular densities. Nodule in the right breast at about 1:00 anterior depth. There is no other significant finding on the study in either breast. BI-RADS: Incomplete: need additional imaging evaluation (BIRADS 0) - Right Recommendation: Special view mammogram and ultrasound of the right breast. This examination was reviewed with a Computer Aided Breast Cancer Detection System. Signed by: ESEQUIEL WILLIS DO 05/26/17 6308 cc: BHAVYA WILLIS ELSIE M FNP Assessments Condition Name Status Diagnosis Date Treating Clinici an Alcoholic cirrhosis of liver with ascites Active Pseudocyst of pancreas Active Type 2 diabetes mellitus without Active complications Abnormal weight loss Active Other specified abnormal findings of blood Active chemistry Pseudocyst of pancreas Active Type 2 diabetes mellitus without Active complications Other fatigue Active Pseudocyst of pancreas Active Body mass index (BMI) 21.0-21.9, adult Active Type 2 diabetes mellitus without Active complications Other specified abnormal findings of blood Active chemistry Pseudocyst of pancreas Active Tubulo-interstitial nephritis, not spcf as Active acute or chronic Low back pain Active Other fatigue Active Tachycardia, unspecified Active Fever, unspecified Active Shortness of breath Active Localized edema Active Acute pancreatitis without necrosis or Active infection, unsp Peptic ulc, site unsp, unsp as ac or chr, Active w/o hemor or perf Type 2 diabetes mellitus without Active complications Body mass index (BMI) 25.0-25.9, adult Active Tobacco use Active Essential (primary) hypertension Active Hyperlipidemia, unspecified Active Other fatigue Active Encounters Start End Encounter Admission Attending Care Care Encounter Date/Time Date/Time Type Type Clinicians Facility Department ID 2020-04-24 2020-04-24 Outpatient [facility] 12 [id number] 16:15:00 16:15:00 [facility] [id number] and [id number] [facility] [id number] Clini 2020-04-03 2020-04-03 Outpatient [facility] C1 [id number] 15:00:00 15:00:00 [facility] [id number] s [id number] and [id number] [facility], 2020-02-13 2020-02-13 Outpatient [facility] AF [id number] 10:45:00 10:45:00 [facility] [id number] s [id number] and [id number] [facility], 2020-01-04 2020-01-04 Outpatient [facility] 6B [id number] 10:15:00 10:15:00 [facility] [id number] s [id number] and [id number] [facility], 2019-10-23 2019-10-23 Outpatient [facility] [id number] 00:00:00 00:00:00 [id number] 2019-10-22 2019-10-22 Outpatient [facility] C9 [id number] 13:00:00 13:00:00 [facility] [id number] s [id number] and [id number] [facility], 2019-08-07 2019-08-07 [facility] 37 [id number] 15:45:00 15:45:00 [facility] [id number] s [id number] and [id number] [facility], 2018-12-01 2018-12-01 Outpatient [facility] [id number] 10:30:00 10:30:00 [facility] [id number] [phone] [facility], 2017-12-29 2017-12-29 Outpatient [facility] [id number] 08:59:00 08:59:00 BROAD 26 2017-06-07 2017-06-07 [facility] [id number] 09:33:00 09:33:00 RICCARDO 25 2017-05-26 2017-05-26 Outpatient [facility] [id number] 10:06:00 10:06:00 [place]ERETT 79 2017-05-02 2017-05-02 Outpatient [facility] [id number] 09:31:00 09:31:00 EVERETT 37 Payers Payer Name Policy Type Policy Number Effective Date Expiration D ate Social History This patient has no known social history. Vital Signs This patient has no known vital signs.
== END 2020-05-08 19:51 | disposition home or self-care (01) ==
LOC: ER 22:24
DX: E11.10 Type 2 diabetes mellitus with ketoacidosis without coma (principal); R53.1 Weakness; R79.89 Other specified abnormal findings of blood chemistry; R20.0 Anesthesia of skin; I10 Essential (primary) hypertension; F17.210 Nicotine dependence, cigarettes, uncomplicated; Z86.73 Personal history of transient ischemic attack (TIA), and cerebral infarction without residual deficits; Z79.4 Long term (current) use of insulin; Z88.8 Allergy status to other drugs, medicaments and biological substances
CPT/HCPCS: 93005; 96376; 99285; 96361; 96374; 96375; 36415; 82962; 82140; 82803 ×2; 83690; 83735; 85025; 85610; 85730; 80053; 81001; 84484; 80307; 83036; 70551; 71045; 70450; 93010; S0119; J1815; J3411; J7120

== ENCOUNTER 2020-06-13 19:06 | Emergency (ER) | payer OTHER ==
[2020-06-13 20:07] LABS: ABSOLUTE EOSINOPHILS # (AUTO) 0.1 10^3/uL (0.0-0.6); ABSOLUTE LYMPHOCYTES (AUTO) 1.4 10^3/uL (0.5-4.7); ABSOLUTE MONOCYTES (AUTO) 0.3 10^3/uL (0.1-1.4); BASOPHILS % (AUTO) 0.5 % (0-2); EOSINOPHILS % (AUTO) 1.3 % (0-6); HEMATOCRIT 41.7 % (36.0-47.0); HEMOGLOBIN 13.9 g/dL (12.0-15.5); LYMPHOCYTES % (AUTO) 23.9 % (13-45); MEAN CORPUSCULAR HEMOGLOBIN 33.4 pg (27.0-33.4); MEAN CORPUSCULAR HGB CONC 33.4 g/dL (32.0-36.0); MEAN CORPUSCULAR VOLUME 100 fl (80-97); MONOCYTES % (AUTO) 4.7 % (3-13); PLATELET COUNT 124 10^3/uL (150-450); RED BLOOD COUNT 4.18 10^6/uL (3.72-5.28); RED CELL DISTRIBUTION WIDTH 14.5 % (11.5-14.0); SEGMENTED NEUTROPHILS % (AUTO) 69.6 % (42-78); TOTAL CELLS COUNTED % (AUTO) 100 %; VENOUS BLOOD BASE EXCESS -1.7 mmol/L; VENOUS BLOOD PCO2 30.9 mmHg (35-63); VENOUS BLOOD PH 7.45 (7.30-7.42); WHITE BLOOD COUNT 5.8 10^3/uL (4.0-10.5)
[2020-06-13 20:22] LABS: APPEARANCE,URINE SLIGHTLY-CLOUDY; BILIRUBIN,URINE NEGATIVE (NEGATIVE); COLOR,URINE YELLOW; GLUCOSE, URINE >=500 mg/dL (NEGATIVE); KETONES,URINE 20 mg/dL (NEGATIVE); LEUKOCYTE ESTERASE,URINE SMALL (NEGATIVE); NITRITE,URINE NEGATIVE (NEGATIVE); PROTEIN,URINE 30 mg/dL (NEGATIVE); URINE SPECIFIC GRAVITY 1.006
[2020-06-13 20:25] LABS: ALBUMIN 4.5 g/dL (3.5-5.0); ALKALINE PHOSPHATASE 211 U/L (38-126); ANION GAP 19 (5-19); ASPARTATE AMINO TRANSFERASE 136 U/L (14-36); BILIRUBIN,DIRECT 0.5 mg/dL (0.0-0.4); BILIRUBIN,TOTAL 1.2 mg/dL (0.2-1.3); BLOOD UREA NITROGEN 10 mg/dL (7-20); CALCIUM 9.8 mg/dL (8.4-10.2); CARBON DIOXIDE 20 mmol/L (22-30); CHLORIDE 102 mmol/L (98-107); GLUCOSE 216 mg/dL (75-110); POTASSIUM 4.4 mmol/L (3.6-5.0); TOTAL PROTEIN 7.6 g/dL (6.3-8.2)
[2020-06-13] MEDS ORDERED: NORMAL SALINE 1000 ML 1,000 ML IV ONE (21:33)
[2020-06-13 22:34] LABS: URINE AMPHETAMINES SCREEN NEGATIVE; URINE BARBITURATES SCREEN NEGATIVE; URINE BENZODIAZEPINES SCREEN NEGATIVE; URINE COCAINE SCREEN NEGATIVE; URINE MARIJUANA (THC) SCREEN NEGATIVE; URINE METHADONE SCREEN NEGATIVE; URINE PHENCYCLIDINE SCREEN NEGATIVE
--- NOTE | 2020-06-13 23:27 | ER Document Report ---
ED Fall - General Chief Complaint: Fall Stated Complaint: FALL Primary Care Provider: ELAN CURRIE MD [Primary Care Provider] - Follow up as needed TRAVEL OUTSIDE OF THE [place] IN LAST 30 DAYS: No - HPI Notes: Chief Complaint: Fall Historian: History obtained from patient and HPI: This is a 54-year-old female presents to the ER complaining of a fall that occurred around 1030 this morning and patient was not found until 6:00 tonight by . Patient has chronic vertigo, diabetes and often feels weak and dizzy. She claims that she slipped and crumpled down to the bathroom floor. no head injury or loc. no pain or injuries. Pt says she was unable to get out of the floor due to her chronic weakness. says she has been acting slightly confused the past few days. He agrees w/ pt that her chronic weaknes kept her from getting out of the floor- says ''if she makes the bed and takes a shower then shes done for the entire day, just wipes her out''. She was recently started on a second dose of glyburide and says blood sugars have been in the 200's. There is a note from EMS in the chart that says they did a poc test that noted elevated glucose and lactate. Pt has been able to bear weight and ambulate since fall. Denies hip pain, back pain, cp, sob, abdom pain, n/v, or dysuria. pt reports mild dizziness but no other complaints. ROS: Constitutional: no fevers. HEENT: no CAVAZOS, sore throat, or vision changes. CV: no chest pain or palpitations. Resp: no cough or SOB. GI: no abdominal pain, or n/v/d. : no dysuria, hematuria, or incont. MSK: no back pain, no joint swelling/redness. Skin: no rashes or itching. Neuro: chronic dizziness. no confusion. no focal neuro deficits. Hematological: no ecchymosis or easy bleeding. Endocrine: no polyuria/polydipsia, no heat/cold intolerance. Psych: no SI/HI, AH/VH or memory loss. PMHx: Reviewed and agree as charted by RN. PSHx: Reviewed and agree as charted by RN. SOCHx: Reviewed and agree as charted by RN. FHX: No significant familial comorbid conditions directly related to patient complaint Current Medications: Reviewed and agree with the patient medications as charted by the RN. Allergies: Reviewed and agree with the listed allergies as charted by the RN Physical Exam: Vitals: Reviewed in chart as documented by RN. General: Alert and in NAD. Head: Normocephalic; atraumatic Eyes: PERRLA, Conjunctivae clear sclerae non-icteric bilat ENT: no soft palate swelling or uvular deviation Neck: trachea midline, no unilateral swelling/tenderness/lymphadenopathy CV: tachy- 107 no M/R/G; symmetric distal pulses Resp: respirations even and unlabored, CTA bilat. GI: abd soft and nondistended. NTTP. normal BS. no masses/HSM. no CVAT bilat MSK: FROM of all extremities. No midline CTL spine tenderness/deformity. no midline CTL tenderness/deformity. no pelvic or hip tenderness/deformity. able to bear weight and ambulate w/o pain. Skin: warm, moist, good turgor. no rash/lesions Neuro: Alert and oriented X 4. following CN 2-12 intact. no unilateral weakness/numbness Psych: No SI/HI or AH/VH. ED Results: Medical Decision-Making: DDX- DKA, electrolyte abnormality, UTI, metabolic abnormality, syncope, fall, rhabdomyolysis, anemia, ICH, msk injury, subtance abuse, sepsis, dehydration, hypotension, ect plan- ECG, labs, beta hydroxy, UA, IVF, cafeteria monitor, prn insulin, electrolyte replacement. labs reviewed- glucose 218 pH 7.45 CO2-20 anion gap- 19. CBC- wnl UA- small ketones, no convincing UTI, though reflex culture. pt w/o urinary complaints ETOH- 248. CK -52. ECG- sinus tach. qtc 490. unchanged from prior. Pt has no signs of DKA- she is not acidotic, normal anion gap. no signs of rhabdo w/ normal CK and creatinine. vitals signs normalized after IVF. her ETOH level is 248. had told me she had quit alcohol 1 year ago. Disc ussed w/ the pt and she denies etoh use. I suspect pts confusion and unsteadiness the has noticed the past few days is related to etoh use. she is clinically sober w/ clear speech and steady ambulation in the ED. she will be discharged home in the husbands care. pcp f/u in 2-3 days for recheck. Return factors discussed. - Related data Allergies/Adverse Reactions: metformin Allergy (Verified 04/17/20 16:22) Home Medications: lisinopril, sucralfate, bismuth, omeprazole, atorvastatin, aspirin, meclizine, kristalose, gabapentin, lantus, glimepiride, creaon, dicyclomine, zofran Past Medical History - Social History Smoking Status: Current Every Day Smoker Chew tobacco use (# tins/day): No Frequency of alcohol use: None Drug Abuse: None Family History: Reviewed & Not Pertinent - Past Medical History Cardiac Medical History: Reports: Hx Hypercholesterolemia, Hx Hypertension Denies: Hx Coronary Artery Disease, Hx Heart Attack Pulmonary Medical History: Denies: Hx Asthma, Hx Bronchitis, Hx COPD, Hx Pneumonia Neurological Medical History: Denies: Hx Cerebrovascular Accident, Hx Seizures Endocrine Medical History: Reports: Hx Diabetes Mellitus Type 2. Denies: Hx Diabetes Mellitus Type 1 GI Medical History: Reports: Hx Gastroesophageal Reflux Disease, Hx Pancreatitis Musculoskeletal Medical History: Denies Hx Arthritis Skin Medical History: Reports Hx MRSA - upper arm Psychiatric Medical History: Denies: Hx Depression Past Surgical History: Reports: Hx Section - x1, Hx Cholecystectomy - Immunizations Hx Diphtheria, Pertussis, Tetanus Vaccination: No Physical Exam - Vital signs Vitals: Resp 27 H 06/13/20 19:32 Course - Vital Signs Vital signs: Temp Pulse Resp BP Pulse Ox 19 122/82 96 06/13/20 22:01 06/13/20 22:00 06/13/20 22:01 - Laboratory Results Result Diagrams: 06/13/20 19:53 06/13/20 19:53 Laboratory Results Interpreted: 06/13/20 06/13/20 06/13/20 19:32 19:53 19:53 MCV 100 H RDW 14.5 H Plt Count 124 L VBG pH 7.45 H VBG pCO2 30.9 L Carbon Dioxide Creatinine Glucose Direct Bilirubin AST ALT Alkaline Phosphatase Urine Protein 30 H Urine Glucose (UA) >=500 H Urine Ketones 20 H Urine Blood SMALL H Urine Urobilinogen 2.0 H Ur Leukocyte Esterase SMALL H 06/13/20 19:53 MCV RDW Plt Count VBG pH VBG pCO2 Carbon Dioxide 20 L Creatinine 0.25 L Glucose 216 H Direct Bilirubin 0.5 H AST 136 H ALT 107 H Alkaline Phosphatase 211 H Urine Protein Urine Glucose (UA) Urine Ketones Urine Blood Urine Urobilinogen Ur Leukocyte Esterase Critical Laboratory Results Reviewed: No Critical Results - Radiology Results Critical Radiology Results Reviewed: No Critical Results - EKG Interpretation by Me EKG shows normal: Sinus rhythm Rate: Normal, Tachycardia Rhythm: NSR [place]/QRS: No: Right axis deviation, Left axis deviation, RBBB, LBBB, IVCD, LAHB/LAFB, LPHB/LPFB, Bifasicular block Voltage: No: Increased voltage, Consistent with LVH, Consistent with RVH, Decreased voltage, Throughout, Limb leads Heart block present: No: 1st Degree, Mobitz 1, Mobitz 2, CHB (3rd degree block) When compared to previous EKG there are: No significant change Additional EKG results interpreted by me: 06/13/20 23:46 boderline QT prolongation- Qtc 490 Discharge - Discharge Clinical Impression: Dizziness Fall Qualifiers: Encounter type: initial encounter Qualified Code(s): W19.XXXA - Unspecified fall, initial encounter Elevated ETOH level Qualifiers: Blood alcohol level: 240 mg/100 ml or more Qualified Code(s): Y90.8 - Blood alcohol level of 240 mg/100 ml or more Condition: Stable Disposition: HOME, SELF-CARE Instructions: Dizziness ([facility]) Additional Instructions: drink plenty of water and monitor your blood sugars closely. abstain from alcohol use. follow up with your doctor in 2-3 days for a recheck. return to the ER if your condition worsens. Referrals: ELAN CURRIE MD [Primary Care Provider] - Follow up as needed
[2020-06-14 00:33] VITALS: BP 143/77
--- NOTE | 2020-06-14 17:20 | EKG REPORT ---
SEVERITY:- BORDERLINE ECG - SINUS RHYTHM BORDERLINE PROLONGED QT INTERVAL : Confirmed by: Kristi Fernandez MD 14-Jun-2020 17:19:21
== END 2020-06-14 00:33 | disposition home or self-care (01) ==
LOC: ER 19:06
DX: R42 Dizziness and giddiness (principal); W01.0XXA Fall on same level from slipping, tripping and stumbling without subsequent striking against object, initial encounter; Y92.002 Bathroom of unspecified non-institutional (private) residence as the place of occurrence of the external cause; Y90.8 Blood alcohol level of 240 mg/100 ml or more; E11.9 Type 2 diabetes mellitus without complications; R53.1 Weakness; F17.200 Nicotine dependence, unspecified, uncomplicated; E78.00 Pure hypercholesterolemia, unspecified; I10 Essential (primary) hypertension; Z86.14 Personal history of Methicillin resistant Staphylococcus aureus infection
CPT/HCPCS: 93005; 99284; 96360; 36415; 82010; 80307 ×2; 82550; 83690; 85025; 80053; 81001; 82803; 93010; J7030